=== PATIENT | female | born 1970 | race Caucasian/White ===

== ENCOUNTER → 2017-11-07 12:11 | Outpatient (CLI) | payer OTHER, SELFPAY ==
[2017-11-07 15:45] LABS: Absolute Lymphocyte Count 1.87 X10^3/ul (0.83-4.51); Absolute Neutrophil Count 4.7 X10^3/uL (2.0-7.7); Basophil# 0.05 X10^3/uL; Basophil% 0.7 % (0-1); Eosinophils% 1.4 % (0-5); Hematocrit 39.4 % (37-47); Lymphocyte # 1.87 X10^3/ul (4.0); Lymphocyte % 25.9 % (19-41); Mean Corp Hgb Conc 35.5 g/gl (32-36); Mean Corpuscular Volume 84.5 fL (81-99); Mean Platelet Vol. 10.4 fl (6.2-12.0); Monocyte# 0.51 X10^3/uL; Monocyte% 7.1 % (0-10); Neutrophil # 4.66 X10^3/uL (2.7-7.7); Neutrophil % 64.5 % (47-70); Platelet Count 321 K/mm3 (150-450); RBC Distribution Width CV 12.9 % (11.6-14.6); RBC Distribution Width SD 39.2 fl (35.1-43.9); Red Blood Count 4.66 M/mm3 (4.2-5.4); White Blood Count 7.2 K/mm3 (4.4-11.0)
[2017-11-07 15:46] LABS: POSITIVE COUNT NO; POSITIVE DIFFERENTIAL NO; POSITIVE MORPHOLOGY NO
[2017-11-07 16:00] LABS: Erythrocyte Sedimentation Rate 15 mm/hr (0-20)
[2017-11-07 16:06] LABS: Albumin, Serum 3.9 g/dL (3.2-5.0); BUN 16 mg/dL (7-18); BUN/Creat Ratio 20.8 RATIO (10-20); Creatinine, Serum 0.77 mg/dL (0.55-1.02); EST Glomerular Filtration Rate 85 mL/min (>60); Est Glom Filt Rate - Afr Amer 102 mL/min (>60); Globulin 4.2 g/dL (2.2-4.2); Glucose 85 mg/dL (74-106); Protein, Total 8.1 g/dL (6.4-8.2)
[2017-11-07 16:07] LABS: ALB/GLOB Ratio 0.9 RATIO (0.9-2.4); AST(SGOT) 56 U/L (15-37); Alanine Aminotransfer ALT/SGPT 64 U/L (13-56); Alkaline Phosphatase 74 U/L (45-117); Anion Gap 13 (5-15); CRP 8.42 mg/L (0.0-3.0); Calcium,Total 9.2 mg/dL (8.5-10.1); Chloride 103 mmol/L (98-107); Potassium 4.1 mmol/L (3.5-5.1); Sodium Level 138 mmol/L (136-145); Thyroid Stim Hormone (TSH) 1.36 uIU/mL (0.358-3.74)
[2017-11-09 18:18] LABS: ANTINUCLEAR ANTIBODIES DIRECT Negative (Negative)
[2017-11-09 20:08] LABS: Endomysial Antibody IgA Negative (Negative)
[2017-11-10 08:57] LABS: Immunoglobulin A 348 mg/dL (87-352); t-Transglutaminase IgA <2 U/mL (0-3)
== END ==
PROVIDERS: Family Provider Family Medicine; PCP Family Medicine; Visit Provider Family Medicine
DX: K63.9 Disease of intestine, unspecified (principal); R19.7 Diarrhea, unspecified
CPT/HCPCS: 36415; 80053; 82784; 83516; 84443; 85025; 85652; 86038; 86140; 86255

== ENCOUNTER → 2017-11-12 14:00 | Outpatient (CLI) | payer OTHER, SELFPAY | PROVIDERS: Family Provider Family Medicine; PCP Family Medicine; Visit Provider Family Medicine | DX: K63.9 Disease of intestine, unspecified (principal); R19.7 Diarrhea, unspecified | CPT/HCPCS: 87177; 87209 ==

== ENCOUNTER → 2017-11-23 16:29 | Outpatient (CLI) | payer OTHER, SELFPAY | PROVIDERS: Family Provider Family Medicine; PCP Family Medicine; Visit Provider Family Medicine | DX: K63.9 Disease of intestine, unspecified (principal); K76.0 Fatty (change of) liver, not elsewhere classified; K80.20 Calculus of gallbladder without cholecystitis without obstruction | CPT/HCPCS: 74177; Q9967 ==

== ENCOUNTER 2018-01-28 08:30 | Day surgery (SDC) | payer OTHER, SELFPAY ==
[2018-01-28 08:49] VITALS: BP 125/88; PULSE 85; RESP 14; TEMP 36.8; O2SAT 100; BMI 34.2
[2018-01-28 09:36] LABS: Bedside Glucose 107 mg/dL (70-110)
[2018-01-28 09:40] VITALS: BP 110/76; BP 125/88; PULSE 75; RESP 16; TEMP 35.8; O2SAT 100
--- NOTE | 2018-01-28 09:43 | OP.ENDO_ITS ---
Patient Name: Tete Stubbs Procedure Date: 01/28/2018 9:16 AM Date of : 1970 Age: 47 Procedure: Colonoscopy Indications: Abnormal abdominal x-ray of the GI tract, Change in bowel habits Providers: Wade Brown MD Medicines: See the Anesthesia note for documentation of the administered medications Patient Profile: Last Colonoscopy: none. The patient's first colonoscopy is today. Complications: No immediate complications. Procedure: Pre-Anesthesia Assessment: - Prior to the procedure, a History and Physical was performed, and patient medications and allergies were reviewed. The patient's tolerance of previous anesthesia was also reviewed. The risks and benefits of the procedure and the sedation options and risks were discussed with the patient. All questions were answered, and informed consent was obtained. Prior Anticoagulants: The patient has taken no previous anticoagulant or antiplatelet agents. ASA Grade Assessment: II - A patient with mild systemic disease. After reviewing the risks and benefits, the patient was deemed in satisfactory condition to undergo the procedure. After I obtained informed consent, the scope was passed under direct vision. Throughout the procedure, the patient's blood pressure, pulse, and oxygen saturations were monitored continuously. The colonoscope was introduced through the anus and advanced to the cecum, identified by appendiceal orifice and ileocecal valve. The colonoscopy was performed without difficulty. The patient tolerated the procedure well. The quality of the bowel preparation was good. Scope In: 9:24:08 AM Scope Withdrawal Time 0 hours 7 minutes 26 seconds Scope Out: 9:36:59 AM Total Procedure Duration Time 0 hours 12 minutes 51 seconds Findings: The perianal and digital rectal examinations were normal. The colon (entire examined portion) appeared normal. The exam was otherwise without abnormality on direct and retroflexion views. There was no bowel wasll thickening sign in the rectum or sigmoid coon. Impression: - No specimens collected. Recommendation: - Discharge patient to home. - Resume previous diet. - Continue present medications. - Repeat colonoscopy in 10 days for screening purposes. - Return to referring physician in 1 week. Procedure Code(s): --- Professional --- 94975, Colonoscopy, flexible; diagnostic, including collection of specimen(s) by brushing or washing, when performed (separate procedure) Diagnosis Code(s): --- Professional --- R19.4, Change in bowel habit R93.3, Abnormal findings on diagnostic imaging of other parts of digestive tract CPT copyright 2017 [employer]. All rights reserved. The codes documented in this report are preliminary and upon infrastructure software engineer review may be revised to meet current compliance requirements. MD Wade Guerrero MD 01/28/2018 9:43:00 AM This report has been signed electronically. Number of Addenda: 0 Note Initiated On: 01/28/2018 9:16 AM
[2018-01-28 09:45] VITALS: BP 110/78; BP 125/88; PULSE 72; RESP 16; O2SAT 100
[2018-01-28 09:50] VITALS: BP 108/75; BP 125/88; PULSE 65; RESP 16; O2SAT 100
[2018-01-28 09:55] VITALS: BP 110/73; BP 125/88; PULSE 62; RESP 16; TEMP 35.9; O2SAT 100
[2018-01-28 10:20] VITALS: BP 125/88
== END 2018-01-28 10:22 | disposition home or self-care (01) ==
LOC: EN 08:31 → AC 08:31
PROVIDERS: Family Provider Family Medicine; PCP Family Medicine; Referring Provider Surgery; Visit Provider Surgery
PROC: 0DJD8ZZ Inspection of Lower Intestinal Tract, Via Natural or Artificial Opening Endoscopic (ICD-10-PCS; CPT 45378; principal; 2018-01-28 09:25)
DX: K63.9 Disease of intestine, unspecified (principal); R19.4 Change in bowel habit; K21.9 Gastro-esophageal reflux disease without esophagitis; E11.9 Type 2 diabetes mellitus without complications; Z79.84 Long term (current) use of oral hypoglycemic drugs
CPT/HCPCS: 45378; 82962; J7120; J1610

== ENCOUNTER → 2020-10-13 | Outpatient (CLI) | payer OTHER, SELFPAY ==
[2020-10-13 14:50] VITALS: BMI 34.2
[2020-10-18 13:06] LABS: HPV APTIMA, High Risk Negative (Negative)
== END | disposition home or self-care (01) ==
PROVIDERS: PCP Family Medicine; Referring Provider Obstetrics & Gynecology; Visit Provider Obstetrics & Gynecology
DX: Z12.4 Encounter for screening for malignant neoplasm of cervix (principal)
CPT/HCPCS: 87624; 88175; G0145

== ENCOUNTER → 2020-10-28 17:20 | Outpatient (CLI) | payer OTHER, SELFPAY ==
[2020-10-13 14:50] VITALS: BMI 34.2
--- NOTE | 2020-10-28 16:33 | BI_ITS ---
MAMMOGRAPHY - BILATERAL SCREENING REASON FOR EXAM: Female, 49 years old. Routine annual screening examination. PERTINENT HISTORY: Grandmother with breast cancer. Aunts with breast cancer. TECHNIQUE: Digital bilateral breast linda (3D mammographic acquisition) in the CC and MLO projections. 2-D mediolateral oblique (MLO) and craniocaudad (CC) views of both breasts were obtained. CAD: Full Field Digital Mammography with Computer Added Detection was performed. COMPARISON: Comparison is made with prior study dated 08/11/2015. FINDINGS: Breast Composition: There are scattered areas of fibroglandular density. There are no dominant masses or suspicious calcifications. No other significant abnormalities are identified. There has been no significant change since the prior study. BI/SCRN MAMM (CAD)W/LINDA BILAT IMPRESSION: Stable bilateral screening mammogram. Yearly follow-up mammogram recommended. (A) ASSESSMENT CATEGORY: BIRADS Category 1: Negative. A letter regarding these results will be sent to the patient by the facility within 30 days. Approximately 10% of breast cancers are not detected by mammography. A normal mammogram should not delay biopsy of a clinically suspicious abnormality. [id number] Electronically Signed: Houston Mendoza MD at 9:12 EDT , Service support ,
== END ==
PROVIDERS: PCP Family Medicine; Referring Provider Obstetrics & Gynecology; Visit Provider Obstetrics & Gynecology
DX: Z12.31 Encounter for screening mammogram for malignant neoplasm of breast (principal)
CPT/HCPCS: 77063; 77067

== ENCOUNTER → 2020-11-23 | Outpatient (CLI) | payer OTHER, SELFPAY | END | disposition home or self-care (01) | LOC: LABSPEC 16:40 | PROVIDERS: PCP Family Medicine; Referring Provider Nurse Practitioner Women's Health; Visit Provider Nurse Practitioner Women's Health | DX: R30.0 Dysuria (principal) | CPT/HCPCS: 87086; 87088 ==

== ENCOUNTER → 2020-12-17 | Outpatient (CLI) | payer OTHER, SELFPAY | END | disposition home or self-care (01) | LOC: LABSPEC 11:30 | PROVIDERS: PCP Family Medicine; Visit Provider Obstetrics & Gynecology | DX: R30.0 Dysuria (principal) | CPT/HCPCS: 87086; 87088 ==

== ENCOUNTER 2021-04-22 08:33 | Outpatient (CLI) | payer OTHER, SELFPAY ==
[2021-04-22 10:24] LABS: ALB/GLOB Ratio 0.9 RATIO (0.9-2.4); AST(SGOT) 25 U/L (15-37); Alanine Aminotransfer ALT/SGPT 40 U/L (13-56); Albumin, Serum 3.8 g/dL (3.2-5.0); Alkaline Phosphatase 110 U/L (45-117); Anion Gap 6 (5-15); BUN 15 mg/dL (7-18); BUN/Creat Ratio 19.3 RATIO (10-20); Calcium,Total 8.9 mg/dL (8.5-10.1); Chloride 101 mmol/L (98-107); Creatinine, Serum 0.78 mg/dL (0.55-1.02); EST Glomerular Filtration Rate 83 mL/min (>60); Est Glom Filt Rate - Afr Amer 100 mL/min (>60); Globulin 4.4 g/dL (2.2-4.2); Glucose 286 mg/dL (74-106); Protein, Total 8.2 g/dL (6.4-8.2); Sodium Level 134 mmol/L (136-145)
[2021-04-22 10:30] LABS: Hemoglobin A1c 8.4 % (3.8-5.6)
[2021-04-22 10:32] LABS: Microalbumin,Random Urine 62.8 mg/L (NO RANGE EST.); Microalbumin:Creatinine Ratio 40.5 mg/g CRE (<30 mg/g CRE)
== END 2021-04-22 23:59 | disposition short-term general hospital (02) ==
LOC: MFPLAB 08:34
PROVIDERS: PCP Family Medicine; Referring Provider Family Medicine; Visit Provider Family Medicine
DX: E11.65 Type 2 diabetes mellitus with hyperglycemia (principal); E66.9 Obesity, unspecified; K76.0 Fatty (change of) liver, not elsewhere classified
CPT/HCPCS: 36415; 80053; 82043; 82570; 83036

== ENCOUNTER → 2022-05-26 | Outpatient (CLI) | payer OTHER, SELFPAY ==
[2022-05-26 12:25] LABS: Absolute Lymphocyte Count 2.09 X10^3/uL (0.83-4.51); Absolute Neutrophil Count 4.9 X10^3/uL (2.0-7.7); Basophil# 0.06 X10^3/uL; Basophil% 0.8 % (0-1); Eosinophil# 0.19 X10^3/uL; Eosinophils% 2.4 % (0-5); Hematocrit 40.9 % (37-47); Hemoglobin 13.9 g/dL (12.0-15.0); Lymphocyte # 2.09 X10^3/ul (0.83-4.51); Lymphocyte % 26.7 % (19-41); Mean Corpuscular Hgb 29.1 pg (27.0-32.0); Mean Corpuscular Volume 85.7 fL (81-99); Mean Platelet Vol. 10.3 fl (6.2-12.0); Monocyte% 6.4 % (0-10); NRBC Flagged by Analyzer 0 % (0-5); Neutrophil # 4.94 X10^3/uL (2.7-7.7); Neutrophil % 63.2 % (47-70); Platelet Count 348 K/mm3 (150-450); RBC Distribution Width CV 13.2 % (11.6-14.6); RBC Distribution Width SD 41.1 fl (35.1-43.9); Red Blood Count 4.77 M/mm3 (4.2-5.4); White Blood Count 7.8 K/mm3 (4.4-11.0)
[2022-05-26 13:11] LABS: Microalbumin:Creatinine Ratio 29.9 mg/g CRE (<30 mg/g CRE)
[2022-05-26 13:13] LABS: ALB/GLOB Ratio 0.9 RATIO (0.9-2.4); AST(SGOT) 18 U/L (15-37); Alanine Aminotransfer ALT/SGPT 35 U/L (13-56); Albumin, Serum 3.8 g/dL (3.2-5.0); Alkaline Phosphatase 96 U/L (45-117); Anion Gap 6 (5-15); BUN 13 mg/dL (7-18); BUN/Creat Ratio 17.9 RATIO (10-20); Chloride 102 mmol/L (98-107); Cholesterol 164 mg/dL (200); Creatinine, Serum 0.73 mg/dL (0.55-1.02); EST Glomerular Filtration Rate 89 mL/min (>60); Est Glom Filt Rate - Afr Amer 107 mL/min (>60); Globulin 4.3 g/dL (2.2-4.2); Glucose 278 mg/dL (74-106); High Density Lipoprotein 55 mg/dL; Potassium 4.4 mmol/L (3.5-5.1); Protein, Total 8.1 g/dL (6.4-8.2); Sodium Level 134 mmol/L (136-145); Triglycerides 88 mg/dL; Very Low Density Lipoprotein 18 mg/dL (5-40)
== END | disposition home or self-care (01) ==
LOC: BIMLAB 08:24
PROVIDERS: PCP Internal Medicine; Referring Provider Internal Medicine; Visit Provider Internal Medicine
DX: I10 Essential (primary) hypertension (principal)
CPT/HCPCS: 36415; 80053; 80061; 82043; 82570; 85025

== ENCOUNTER → 2022-06-02 | Outpatient (CLI) | payer OTHER, SELFPAY ==
--- NOTE | 2022-06-02 14:47 | BI_ITS ---
MAMMOGRAPHY - BILATERAL SCREENING REASON FOR EXAM: Female, 51 years old. Routine annual screening examination. PERTINENT HISTORY: Grandmothers with breast cancer. TECHNIQUE: Digital bilateral breast linda (3D mammographic acquisition) in the CC and MLO projections. 2-D mediolateral oblique (MLO) and craniocaudad (CC) views of both breasts were obtained. CAD: Full Field Digital Mammography with Computer Added Detection was performed. COMPARISON: Comparison is made with prior mammogram dated October 28, 2020 and August 11, 2015. FINDINGS: Breast Composition: The breasts are almost entirely fatty. There are no dominant masses or suspicious calcifications. No other significant abnormalities are identified. There has been no significant change since the prior study. BI/SCRN MAMM (CAD)W/LINDA BILAT IMPRESSION: Stable bilateral screening mammogram. Yearly follow-up mammogram recommended. (A) ASSESSMENT CATEGORY: BIRADS Category 1: Negative. A letter regarding these results will be sent to the patient by the facility within 30 days. Approximately 10% of breast cancers are not detected by mammography. A normal mammogram should not delay biopsy of a clinically suspicious abnormality. [id number] Electronically Signed: Houston Mendoza MD at 8:49 EDT ,
== END | disposition home or self-care (01) ==
LOC: OPBI 14:46
PROVIDERS: PCP Internal Medicine; Referring Provider Internal Medicine; Visit Provider Internal Medicine
DX: Z12.31 Encounter for screening mammogram for malignant neoplasm of breast (principal)
CPT/HCPCS: 77063; 77067

== ENCOUNTER → 2023-01-10 | Outpatient (CLI) | payer OTHER, SELFPAY ==
[2023-01-16 14:09] LABS: HPV APTIMA, High Risk Negative (Negative)
== END | disposition home or self-care (01) ==
LOC: LABSPEC 15:55
PROVIDERS: PCP Internal Medicine; Referring Provider Registered Nurse; Visit Provider Registered Nurse
DX: Z12.4 Encounter for screening for malignant neoplasm of cervix (principal)
CPT/HCPCS: 87624; 88175; G0145

== ENCOUNTER → 2023-01-12 | Outpatient (CLI) | payer OTHER, SELFPAY ==
--- NOTE | 2023-01-12 10:38 | US_ITS ---
STUDY: ULTRASOUND TRANSVAGINAL CLINICAL: Female, 52 years old. abnormal bleeding TECHNIQUE: Transvaginal COMPARISON: None. FINDINGS: Normal uterine size measuring 8.2 x 4.0 x 2.7 cm in maximal craniocaudal dimension. There are no myometrial masses. Normal endometrial thickness measuring 3 mm. There are no endometrial masses, and there is no fluid in the endometrial cavity. Nabothian cyst in the cervix. The right ovary is not visualized.. Normal left ovary, measuring 1.7 x 1.2 x 1.0 cm. There are multiple follicles without a dominant cyst. There is no free fluid in the pelvis. Polycystic ovary disease: No. US/Transvaginal Non- IMPRESSION: Normal transvaginal pelvic ultrasound Electronically Signed: Valeriano Hernandez MD at 21:44 EDT ,
== END | disposition home or self-care (01) ==
LOC: OPUS 10:37
PROVIDERS: PCP Internal Medicine; Referring Provider Registered Nurse; Visit Provider Registered Nurse
DX: N93.9 Abnormal uterine and vaginal bleeding, unspecified (principal)
CPT/HCPCS: 76830

== ENCOUNTER → 2024-01-29 | Outpatient (CLI) | payer OTHER, SELFPAY ==
[2024-01-29 12:20] LABS: Absolute Lymphocyte Count 1.51 X10^3/uL (0.83-4.51); Absolute Neutrophil Count 2.4 X10^3/uL (2.0-7.7); Basophil# 0.06 X10^3/uL; Basophil% 1.3 % (0-1); Eosinophil# 0.22 X10^3/uL; Eosinophils% 4.8 % (0-5); Hematocrit 38.2 % (37-47); Lymphocyte # 1.51 X10^3/ul (0.83-4.51); Lymphocyte % 33.2 % (19-41); Mean Corpuscular Hgb 28.4 pg (27.0-32.0); Mean Corpuscular Volume 83.6 fL (81-99); Monocyte# 0.36 X10^3/uL; Monocyte% 7.9 % (0-10); NRBC Flagged by Analyzer 0 % (0-5); Neutrophil # 2.38 X10^3/uL (2.7-7.7); Neutrophil % 52.4 % (47-70); Platelet Count 307 K/mm3 (150-450); RBC Distribution Width CV 13.2 % (11.6-14.6); Red Blood Count 4.57 M/mm3 (4.2-5.4); White Blood Count 4.6 K/mm3 (4.4-11.0)
[2024-01-29 12:58] LABS: ALB/GLOB Ratio 0.9 RATIO (0.9-2.4); AST(SGOT) 11 U/L (15-37); Alanine Aminotransfer ALT/SGPT 14 U/L (13-56); Albumin, Serum 3.6 g/dL (3.2-5.0); Alkaline Phosphatase 84 U/L (45-117); Anion Gap 6 (5-15); BUN 15 mg/dL (7-18); BUN/Creat Ratio 19.8 RATIO (10-20); Chloride 106 mmol/L (98-107); Cholesterol 194 mg/dL (200); Creatinine, Serum 0.76 mg/dL (0.55-1.02); EST Glomerular Filtration Rate 84 mL/min (>60); Est Glom Filt Rate - Afr Amer 102 mL/min (>60); Glucose 148 mg/dL (74-106); High Density Lipoprotein 63 mg/dL; Potassium 4.3 mmol/L (3.5-5.1); Protein, Total 7.6 g/dL (6.4-8.2); Sodium Level 138 mmol/L (136-145); Triglycerides 62 mg/dL; Very Low Density Lipoprotein 12 mg/dL (5-40)
[2024-01-29 13:15] LABS: Microalbumin,Random Urine 5.5 mg/L (NO RANGE EST.); Microalbumin:Creatinine Ratio 5.8 mg/g CRE (<30 mg/g CRE)
== END | disposition home or self-care (01) ==
LOC: BIMLAB 07:56
PROVIDERS: PCP Internal Medicine; Visit Provider Internal Medicine
DX: E11.9 Type 2 diabetes mellitus without complications (principal)
CPT/HCPCS: 36415; 80053; 80061; 82043; 82570; 85025

== ENCOUNTER → 2024-02-21 | Outpatient (CLI) | payer OTHER, SELFPAY ==
[2024-03-03 09:22] LABS: HPV APTIMA, High Risk Negative (Negative)
== END | disposition home or self-care (01) ==
LOC: LABSPEC 16:17
PROVIDERS: PCP Internal Medicine; Referring Provider Nurse Practitioner Family; Visit Provider Nurse Practitioner Family
DX: Z12.4 Encounter for screening for malignant neoplasm of cervix (principal)
CPT/HCPCS: 87624; 88175; G0145

== ENCOUNTER → 2024-02-22 | Outpatient (CLI) | payer OTHER, SELFPAY ==
[2024-02-22 11:38] LABS: Estradiol 91.6 pg/mL; Follicle Stimulating Hormone 6.4 mIU/mL
== END | disposition home or self-care (01) ==
LOC: LAB 09:44
PROVIDERS: PCP Internal Medicine; Referring Provider Nurse Practitioner Family; Visit Provider Nurse Practitioner Family
DX: N93.9 Abnormal uterine and vaginal bleeding, unspecified (principal); Z13.29 Encounter for screening for other suspected endocrine disorder
CPT/HCPCS: 36415; 82670; 83001; 84439; 84443

== ENCOUNTER → 2024-09-23 | Outpatient (CLI) | payer OTHER, SELFPAY ==
--- NOTE | 2024-09-23 | EMB_PTH ---
PATIENT: CAROL STEWARD LOC: [facility] U#:[id number] AGE/SX: 53/F ROOM: RE09/23/[address]: NILO Esteban : 1970 BED: DIS: 09/23/2024 SPEC #: [id number] RECD: 09/23/24 12:14 STATUS: CHERYL WILSON #: [id number] SEA: 09/23/24 00:[address]: Gabriela Davis NP DEPT: SURGICAL PATHOLOGY RECD BY: Leslie Pena ENTERED: 09/23/24 12:23 SP TYPE: ENDOM BX/C MIS DR: Dr. Sadaf Neal MD Tissues: A - Endometrium, NOS Procedures: Surgery Specimen Level IV HEADER OPERATION: EMB PRE-OP DIAGNOSIS: AUB TISSUE SUBMITTED: A- Endometrial lining MICROSCOPIC DIAGNOSIS A. Endometrium, AUB, biopsy: - Fragments of mildly disordered proliferative endometrium. MICROSCOPIC DESCRIPTION Slides are reviewed. GROSS DESCRIPTION A. Received in formalin labeled with the patient's name and date of is a 2.5 x 0.8 x 0.1 cm aggregate of mucoid material and flecks of kumar-pink tissue. Entirely submitted in 1 cassette. MD 09/23/2024 CPT:73944
== END | disposition home or self-care (01) ==
LOC: LABSPEC 11:57
PROVIDERS: PCP Internal Medicine; Visit Provider Nurse Practitioner Women's Health
DX: N93.9 Abnormal uterine and vaginal bleeding, unspecified (principal)
CPT/HCPCS: 88305

== ENCOUNTER → 2024-09-26 | Outpatient (CLI) | payer OTHER, SELFPAY ==
--- NOTE | 2024-09-26 15:14 | US_ITS ---
PROCEDURE: TRANSVAGINAL NON- 09/26/2024 REASON FOR EXAM: AUB TECHNIQUE: TRANSVAGINAL NON- with grayscale and color Doppler COMPARISON: Pelvic ultrasound 01/12/2023 FINDINGS: Measurements: Uterus: 7.3 x 2.5 x 4.0 cm for volume of 37.3 mL Endometrial Thickness: 3 mm Right Ovary: 2.1 x 1.1 x 1.9 cm for volume of 2.5 mL . Left Ovary: 1.7 x 1.3 x 1.3 cm for volume of 1.5 mL. Uterus: Anteverted. Normal contour and myometrial echotexture. Nabothian cysts at the cervix. Endometrium: Normal echotexture. Right ovary: Normal size and echotexture. Left ovary: Normal size and echotexture. Other adnexal findings: None. Cul-de-sac: No free intraperitoneal fluid identified. Color Doppler: Normal color flow doppler signal at both ovaries. US/Transvaginal Non- IMPRESSION: Unremarkable pelvic ultrasound. The endometrial stripe measures 3 mm in thickn ess, similar to ultrasound in 2022. Reading Location: [id number]
== END | disposition home or self-care (01) ==
LOC: US 15:12
PROVIDERS: PCP Internal Medicine; Referring Provider Nurse Practitioner Women's Health; Visit Provider Nurse Practitioner Women's Health
DX: N93.9 Abnormal uterine and vaginal bleeding, unspecified (principal)
CPT/HCPCS: 76830

== ENCOUNTER → 2024-11-07 | Outpatient (CLI) | payer OTHER, SELFPAY ==
--- NOTE | 2024-11-07 07:04 | BI_ITS ---
EXAM: SCRN MAMM (CAD)W/LINDA BILAT DATE: 11/07/2024 CLINICAL HISTORY: F, Age 53 y/o , SCREENING FOR BREAST CANCER TECHNIQUE: SCRN MAMM (CAD)W/LINDA BILAT COMPARISON: Prior exam(s) dated 06/02/2022, 10/28/2020. FINDINGS: TISSUE DENSITY: The breasts are almost entirely fatty. Bilateral Breast Mammographic Findings: No significant masses, calcifications or other abnormalities are identified. BI/SCRN MAMM (CAD)W/LINDA BILAT IMPRESSION: There is no mammographic evidence of malignancy. OVERALL FINAL ASSESSMENT BI-RADS 1: NEGATIVE. RECOMMENDATION: Routine annual follow-up in 1 Year A letter with findings and recommendations will be mailed to the patient. Reading Location: [id number]
--- OUTSIDE RECORDS SUMMARY | 2024-11-07 07:20 | XMS RPT_ITS | CCD ---
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 Aroldo Hua Primary Care Provider Dr. Aroldo Hua Referring Provider Dr. Sadaf Neal Attending Provider Dr. Sadaf Neal Primary Care Provider Dr. Sadaf Neal Referring Provider [phone] MICHAEL Rucker Attending Provider Dr. Sadaf Neal MD Primary Care Provider Dr. Sadaf Neal MD Attending Provider Dr. Sadaf Neal MD Referring Provider Ryan SLOOP CAPTAIN-CGabriela Attending Provider Ryan SLOOP CAPTAIN-C Gabriela Referring Provider Jay Jay AMAYA, Dr. Gar Attending Provider Ángel, Sadaf Primary Care Unavailable Morse, Sadaf Attending Unavailable Morse, Sadaf Referring Unavailable [place] SLOOP CAPTAIN, Gabriela Attending Unavailable Morse, Sadaf Primary Care Unavailable [place] SLOOP CAPTAIN, Gabriela Attending Unavailable [place] SLOOP CAPTAIN, Gabriela Referring Unavailable Ángel, Sadaf Primary Care Unavailable Ángel, Sadaf Primary Care Unavailable Ángel, Sadaf Attending Unavailable Morse, Sadaf Primary Care Unavailable Jessica, Jennifer Attending Unavailable Barkman, Jennifer Referring Unavailable Morse, Sadaf Primary Care Unavailable Jennifer Lopez Attending Unavailable Barkman, Jennifer Referring Unavailable Ángel, Sadaf Primary Care Unavailable Jennifer Lopez Attending Unavailable Barkman, Jennifer Referring Unavailable Ángel, Sadaf Primary Care Unavailable Cong Goyal Attending Unavailable Morse, Sadaf Referring Unavailable Ángel, Sadaf Referring Unavailable Ángel, Sadaf Primary Care Unavailable Jennifer Lopez Attending Unavailable Morse, Sadaf Referring Unavailable Ángel, Sadaf Primary Care Unavailable Morse, Sadaf Attending Unavailable Ryan SLOOP CAPTAINGabriela Attending Unavailable Ángel, Sadaf Primary Care Unavailable Ángel, Sadaf Referring Unavailable [place] SLOOP CAPTAIN, Gabriela Attending Unavailable Morse, Sadaf Primary Care Unavailable Morse, Sadaf Referring Unavailable Medications Current Medications Medication Drug Class(es) Dates Sig (Normalized) Sig (Original) Tirzepatide (8 sources) Start: 01-01-2023 Tirzepatide Ac tive 7.5 MG SC EVERY WEEK 6 January 01, 2023 7:06pm Start: 08-22-2022 End: 01-01-2023 Tirzepatide Discontinued 5 M G SC EVERY WEEK 6 August 22, 2022 4:36pm January 01, 2023 7:06pm Start: 08-02-2022 End: 08-22-2022 Tirzepatide Discontinued 7.5 MG SC EVERY WEEK 2 August 02, 2022 2:35pm August 22, 2022 4:37pm Start: 08-01-2022 End: 08-02-2022 Tirzepatide Discontinued 7.5 MG SC EVERY WEEK 2 August 01, 2022 11:28am August 02, 2022 2:35pm Tirzepatide 5 mg/0.5 mL pen injector (20 sources) Start: 09-23-2024 Tirzepatide 5 mg/0.5 mL pen injector Active 5 mg SC EVERY WEEK 2 September 23, 2024 8:15am for 4 weeks Start: 07-29-2024 End: 09-23-2024 Tirzepatide 5 mg/0.5 mL pen injector Discontinued 5 mg SC EVERY WEEK 2 July 29, 2024 8:37am September 23, 2024 8:17am for 4 weeks Start: 07-01-2024 End: 07-29-2024 Tirzepatide 5 mg/0.5 mL pen injector Discontinued 5 mg SC EVERY WEEK 2 0 July 01, 2024 9:53am July 29, 2024 8:37am for 4 weeks Start: 05-20-2024 End: 07-01-2024 Tirzepatide 5 mg/0.5 mL pen injector Discontinued 5 mg SC EVERY WEEK 2 May 20, 2024 5:26pm July 01, 2024 9:53am for 4 weeks Start: 08-22-2022 End: 01-01-2023 Tirzepatide 5 mg/0.5 mL pen injector Discontinued 5 mg SC EVERY WEEK 6 84 August 22, 2022 4:36pm January 01, 2023 7:06pm Uncontrolled type 2 diabetes mellitus Type 2 diabetes mellitus with hyperglycemia Completed/Discontinued Medications Medication Drug Class(es) Dates Sig (Normalized) Sig (Original) medroxyPROGESTERone acetate 10 mg oral tablet (2 sources) Progestin Start: 10-01-19 End: 10-11-19 take 1 tablet by mouth once daily Medroxyprogesterone 10 mg tablet Discontinued 10 mg PO daily 10 10 0 September 30, 2024 12:00am October 09, 2024 12:00am October 10, 2024 12:08am metFORMIN hydrochloride 500 mg oral tablet (20 sources) Biguanide Start: 09-15-19 End: 03-27-19 take 1 tablet by mouth twice daily Metformin 500 mg tablet Discontinued 500 mg PO TWICE A DAY 180 October 18, 2022 11:23am March 27, 2023 6:22pm metFORMIN hydrochloride 1000 mg / SITagliptin 50 mg oral tablet (9 sources) Biguanide, Dipeptidyl Peptidase 4 Inhibitor Start: 01-17-20 18 End: 10-14-19 21 Sitagliptin Phos-Metformin (Janumet) 50-1,000 mg tablet Discontinued 1 {tbl} PO TWICE A DAY January 16, 2018 12:00am October 13, 2020 2:48pm nitrofurantoin, macrocrystals 25 mg / nitrofurantoin, monohydrate 75 mg oral capsule (9 sources) Nitrofuran Antibacterial Start: 11-24-19 End: 12-01-19 take 1 capsule by mouth twice daily at mealtime Nitrofurantoin Monohyd/M-Cryst (Macrobid) 100 mg capsule Discontinued 100 mg PO TWICE A DAY 14 7 0 November 23, 2020 12:00am November 29, 2020 12:00am November 30, 2020 12:01am must administer with a meal/food norethindrone acetate 5 mg oral tablet (10 sources) Start: 01-19-20 End: 03-27-19 take 1 tablet by mouth once daily Norethindrone Acetate 5 mg tablet Discontinued 5 mg PO DAILY 30 3 January 18, 2023 12:05pm March 27, 2023 3:25pm omeprazole 40 mg delayed release oral capsule (9 sources) Proton Pump Inhibitor Start: 05-24-19 End: 03-27-19 24 take 1 capsule by mouth once daily Omeprazole 40 mg capsule,delayed release(DR/EC) Discontinued 40 mg PO DAILY May 23, 2022 1:00am March 27, 2023 3:25pm progesterone 100 mg oral capsule (9 sources) Progesterone Start: 01-17-20 End: 10-14-19 take 1 capsule by mouth at bedtime Progesterone Micronized 100 mg capsule Discontinued 70 mg PO AT BEDTIME January 16, 2018 12:00am October 13, 2020 2:48pm Start: 01-16-2018 End: 10-13-2020 take 70 mg by mouth at bedtime Progesterone Micronized Discontinued 70 MG PO AT BEDTIME January 16, 2018 12:00am October 13, 2020 2:48pm Tirzepatide (Mounjaro) 2.5 mg/0.5 mL pen injector (19 sources) Start: 04-07-2024 End: 05-20-2024 Tirzepatide (Mounjaro) 2.5 mg/0.5 mL pen injector Discontinued 2.5 mg SC EVERY WEEK 6 April 07, 2024 8:15am May 20, 2024 5:27pm for 4 weeks Start: 01-29-2024 End: 02-21-2024 Tirzepatide (Mounjaro) 2.5 m g/0.5 mL pen injector Discontinued 2.5 mg SC EVERY WEEK 6 January 29, 2024 1:00am February 21, 2024 4:06pm for 4 weeks Start: 05-23-2022 End: 06-12-2022 Tirzepatide (Mounjaro) 2.5 m g/0.5 mL pen injector Discontinued 2.5 mg SC EVERY WEEK 2 28 0 May 23, 2022 1:00am June 19, 2022 12:00am June 12, 2022 10:52am Start: 05-23-2022 End: 06-12-2022 Tirzepatide (Mounjaro) 2.5 m g/0.5 mL pen injector Discontinued 2.5 MG SC EVERY WEEK 2 May 23, 2022 1:00am June 12, 2022 10:52am Start: 05-23-2022 Tirzepatide (M ounjaro) 2.5 mg/0.5 mL pen injector Active 2.5 MG SC EVERY WEEK 2 May 23, 2022 1:00am Tirzepatide (Mounjaro) 5 mg/ 0.5 mL pen injector (7 sources) Start: 06-12-2022 End: 08-01-2022 Tirzepatide (Mounjaro) 5 mg/ 0.5 mL pen injector Discontinued 5 mg SC EVERY WEEK 2 28 3 June 12, 2022 10:52am August 01, 2022 11:29am Uncontrolled type 2 diabetes mellitus Type 2 diabetes mellitus with hyperglycemia Start: 06-12-2022 End: 08-01-2022 Tirzepatide (Mounjaro) 5 mg/ 0.5 mL pen injector Discontinued 5 MG SC EVERY WEEK 2 June 12, 2022 10:52am August 01, 2022 11:29am Tirzepatide 7.5 mg/0.5 mL pe n injector (15 sources) Start: 01-01-2023 End: 01-29-2024 Tirzepatide 7.5 mg/0.5 mL pe n injector Discontinued 7.5 mg SC EVERY WEEK 6 84 1 January 01, 2023 7:06pm January 29, 2024 8:25am Uncontrolled type 2 diabetes mellitus Type 2 diabetes mellitus with hyperglycemia Start: 08-02-2022 End: 08-22-2022 Tirzepatide 7.5 mg/0.5 mL pe n injector Discontinued 7.5 mg SC EVERY WEEK 2 28 0 August 02, 2022 2:35pm August 29, 2022 12:00am August 22, 2022 4:37pm Uncontrolled type 2 diabetes mellitus Type 2 diabetes mellitus with hyperglycemia Start: 08-01-2022 End: 08-02-2022 Tirzepatide 7.5 mg/0.5 mL pe n injector Discontinued 7.5 mg SC EVERY WEEK 2 28 0 August 01, 2022 11:28am August 28, 2022 12:00am August 02, 2022 2:35pm Uncontrolled type 2 diabetes mellitus Type 2 diabetes mellitus with hyperglycemia Problems Problem Classification Problem Date Documented Da te Episodic/Chronic Administrative/social admission (2 sources) Persons encountering health services in other specified circumstances; Translations: [Other reasons for seeking consultation] 05-23-2022 Episodic Diabetes mellitus with complications (11 sources) Type II diabetes mellitus uncontrolled; Translations: [Uncontrolled type 2 diabetes mellitus] 05-23-2022 Chronic Diabetes mellitus without complication (13 sources) Type 2 diabetes mellitus; Translations: [Type 2 diabetes mellitus without complications] Onset: 09-23-2024 08-22-2022 Chronic Esophageal disorders (2 sources) Gastro-esophageal reflux disease without esophagitis; Translations: [Esophageal reflux] 05-23-2022 Chronic Essential hypertension (11 sources) Essential hypertension; Translations: [Essential (primary) hypertension] 05-22-2022 Chronic Other connective tissue disease (2 sources) Pain in right foot; Translations: [Pain in limb] 05-23-2022 Episodic Other connective tissue disease (2 sources) Panniculitis; Translations: [Panniculitis, unspecified] 10-10-2024 Episodic Other connective tissue disease (1 source) Panniculitis, unspecified; Translations: [Panniculitis, unspecified] Onset: 10-10-2024 Episodic Other female genital disorders (10 sources) Abnormal uterine bleeding; Translations: [Abnormal uterine and vaginal bleeding, unspecified] 01-10-2023 Chronic Comment on above: US 2022 reviewed and normal results. US 2022 reviewed and normal results. recurrenace: EMB and US pending. Other female genital disorders (3 sources) Abnormal uterine and vaginal bleeding, unspecified; Translations: [Unspecified disorders of menstruation and other abnormal bleeding from female genital tract] Onset: 10-02-2024 01-10-2023 Chronic Other nutritional; endocrine; and metabolic disorders (1 source) Obese class I; Translations: [Obesity (BMI 30.0-34.9)] 09-23-2024 Chronic Other nutritional; endocrine; and metabolic disorders (4 sources) Body mass index 25-29 - overweight; Translations: [Overweight] 09-23-2024 Episodic Other nutritional; endocrine; and metabolic disorders (2 sources) Intentional weight loss 10-10-2024 Episodic Other nutritional; endocrine; and metabolic disorders (1 source) Overweight; Translations: [Overweight] Onset: 09-23-2024 Episodic Other screening for suspected conditions (not mental disorders or infectious disease) (10 sources) Encounter for other screening for malignant neoplasm of breast; Translations: [Breast screening, unspecified] Onset: 08-19-2024 05-23-2022 Episodic Residual codes; unclassified (2 sources) Immunization not carried out because of patient refusal; Translations: [Vaccination not carried out because of patient refusal] 05-23-2022 Episodic Results Test Name Value Interpretation Reference Range Facility Plastic Surgery Visit Report on 10-10-2024 Plastic Surgery Visit Report [facility] Plastic Reconstructive Surgery [address], [address] [place] [address] OFFICE VISIT Date of Service: 10/10/24 MR#: [id number] Acct: [id number] Name: TETE STEWARD Rep #: [id number] : 1970 Provider: Dr. Cong Goyal MD Age/Sex: 53/F Location: [facility] Status: Signed Intake Vital Signs 02/21/24 08:50 09/23/24 10:56 Height 5 ft 4 in 5 ft 4 in Intake Visit Reasons: PANNICULECTOMY CONSULT Chief Complaint: Panniculectomy consult Is patient in pain?: No Allergies No Known Allergies Allergy (Verified 10/10/24 08:48) Medications ???Medication ???Instructions ???Recorded ???Confirmed ???Type tirzepatide 5 mg/0.5 mL 5 mg (0.5 mL) subcut QWEEK #2 mL 0 09/23/24 10/10/24 Rx subcutaneous pen injector [facility] Medical History Essential hypertension Bowel wall thickening Gallstones CKD (chronic kidney disease) stage 2, GFR 60-89 ml/min Type 2 diabetes mellitus Diarrhea Hemorrhoids Acid reflux Surgical History H/O tubal ligation History of dilation and curettage S/P tonsillectomy History of appendectomy Family History Father Diabetes Heart disease Hypertension High cholesterol Thyroid disorder Brother Diabetes Hypertension Grandmother Breast cancer Aunt Breast cancer x2 plus their 2 daughters Mother Hypertension Social History household members: spouse current occupational status: employed 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 She has a past medical history of borderline diabetes mellitus, currently well-controlled with a hemoglobin A1c of 4.9, and a history of obesity, from which she has significantly reduced her weight. The patient is concerned about the physical discomfort and aesthetic effects of the remaining abdominal skin, which protrudes approximately 3 cm below the pubic symphysis after weight loss. This condition hinders her physical activity and causes recurrent irritation below the skin fold. In addition, the patient has a stable subcostal transverse incision from prior cyst removal without complications. She has been advised that the excess skin may complicate any future surgical interventions. The patient expresses satisfaction with her current weight and wishes to explore options to address the abdominal skin issues, potentially through surgical intervention. Patient has a history of approximately 100 pounds weight loss (250 and now 150/160). She has been oscillating around 160 for approximately 3 months. She was approximately 200 pounds in March 2024 and went back on [facility] losing approximately 50 pounds in 3 months. Her BMI is currently 26 and she would like to stay around the same weight. No personal or family history of bleeding or clotting problems. Patient has had a right upper quadrant cyst removed by home extension agent. She reports rashes and pain with exercising along the intertriginous folds of her abdominal pannus/apron. Patient had 1 child via vaginal . She was another time. She is not a smoker and does not use nicotine products ROS: - Skin: Reports irritation and rash beneath abdominal panniculus - Endocrine: Denies ongoing weight fluctuations Attestation: Documentation on this patient encounter was supported using ambient scribe technology/ voice AI technology. The patient consented to recording for the purpose of documenting the encounter. Carmela lovelace reviewed content of the generated note prior to signature. ROS General General: Yes good health; No fatigue, fever(s) or weight loss HENMT HENMT: No rhinitis, sore throat/mouth sore, nasal congestion, contacts or glaucoma Endo Endocrine: No thyroid disease, polydipsia, heat intolerance, cold intolerance, hepatitis or excessive urine Skin Skin: No Bleeding, bruising, changing moles or suspicious lesion Musc Musculoskeletal: No joint pain, joint stiffness, muscle weakness, back pain, osteoarthritis or Muscle aches/ myalgia Neuro Neurological: No headache(s), No lightheadedness and No numbness Cardio Cardiovascular: No chest pain, pacemaker, fatigue or shortness of breat wit (more content not included)... Normal [facility] Transvaginal Non-on 09-26-2024 Transvaginal Non- [facility] Services [address] [place], [place] [address] Transvaginal Non- MR#: [id number] Acct: [id number] Name: TETE STEWARD Rep #: [id number] : 1970 F 53 From: Renan Adames MD PCP: Dr. Sadaf Neal MD Status: REG CLI Study: Transvaginal Non- Date of Exam: Exam# [id number] Ordering Dr: Gabriela Davis SLOOP CAPTAIN SLOOP CAPTAIN -C PROCEDURE: TRANSVAGINAL NON- 09/26/2024 REASON FOR EXAM: AUB TECHNIQUE: TRANSVAGINAL NON- with grayscale and color Doppler COMPARISON: Pelvic ultrasound 01/12/2023 FINDINGS: Measurements: Uterus: 7.3 x 2.5 x 4.0 cm for volume of 37.3 mL Endometrial Thickness: 3 mm Right Ovary: 2.1 x 1.1 x 1.9 cm for volume of 2.5 mL . Left Ovary: 1.7 x 1.3 x 1.3 cm for volume of 1.5 mL. Uterus: Anteverted. Normal contour and myometrial echotexture. Nabothian cysts at the cervix. Endometrium: Normal echotexture. Right ovary: Normal size and echotexture. Left ovary: Normal size and echotexture. Other adnexal findings: None. Cul-de-sac: No free intraperitoneal fluid identified. Color Doppler: Normal color flow doppler signal at both ovaries. US/Transvaginal Non- IMPRESSION: Unremarkable pelvic ultrasound. The endometrial stripe measures 3 mm in thickness, similar to ultrasound in 2022. Reading Location: [id number] CC: NILO Davis; Dr. Sadaf Neal MD Tooling Specialist: Signed Normal [facility] Laboratory - Hematology and Cell countsOrdered By: Sadaf Neal on 09-23-2024 HbA1c (Bld) [Mass fraction] 4.5 % 4.2-6.3 [facility] Customer Development Representative Office Visit Reporton 09-23-2024 Customer Development Representative Office Visit Report [facility] [address], [address] [place] [address] OFFICE VISIT Date of Service: 09/23/24 MR#: [id number] Acct: [id number] Name: TETE STEWARD Rep #: [id number] : 1970 Provider: NILO boswell Age/Sex: 53/F [place] [facility] Status: Signed Intake Vital Signs 02/21/24 08:50 09/23/24 07:59 09/23/24 10:51 09/23/24 10:56 Height 5 ft 4 in 5 ft 4 in 5 ft 4 in 5 ft 4 in Weight: 163 lb 163 lb 4 oz BMI 27.9 28.0 BP 118/74 116/80 Blood Pressure Location Lt brachial Position Sitting Respiration 14 Pulse 79 Pulse Source Monitor Temp 97.4 F L Pulse Oximetry (%) 97 Oxygen Delivery Method room air Intake Visit Reasons: EMB *abdoulaye from 08/19 Chief Complaint: EMB Sane Rn Required: No Is patient in pain?: No Allergies No Known Allergies Allergy (Verified 09/23/24 10:51) Medications ???Medication ???Instructions ???Recorded ???Confirmed ???Type tirzepatide 5 mg/0.5 mL 5 mg (0.5 mL) subcut QWEEK #2 mL 0 09/23/24 09/23/24 Rx subcutaneous pen injector Is last menstrual period known: Yes Last Menstrual Period: 09/15/24 Post menopausal: No Patient : No : No Control Method: Tubal PFSH PFSH Medical History Essential hypertension Bowel wall thickening Gallstones CKD (chronic kidney disease) stage 2, GFR 60-89 ml/min Type 2 diabetes mellitus Diarrhea Hemorrhoids Acid reflux Surgical History H/O tubal ligation History of dilation and curettage S/P tonsillectomy History of appendectomy Family History Father Diabetes Heart disease Hypertension High cholesterol Thyroid disorder Brother Diabetes Hypertension Grandmother Breast cancer Aunt Breast cancer x2 plus their 2 daughters Mother Hypertension Social History household members: spouse current occupational status: employed 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 Date Name GA/Weeks Outcome Route Bth Weight Infant Gen Labor Lgth Anesthesia Del Locatn Provider FOB Unknown Christopher HPI EMB *abdoulaye from 08/19 Details: TETE STEWARD is a 53 year old who presents for endometrial biopsy. She has had prolonged spotting and bleeding with very heavy menses. Menses will still occur every 28 days but last up to 10-12 days. Female Reproductive History Last Menstrual Period: 09/15/24 ROS Const Constitutional: Reports system reviewed and no additional complaints, except as documented Eyes Eyes: Reports system reviewed and no additional complaints, except as documented GI GI: Denies abdominal pain or change in bowel habits : Reports as per HPI Exam Const General: cooperative and no acute distress Orientation: oriented x3 Resp Effort Inspection: normal respiratory effort General: bladder normal to palpation External Female Exam: normal external appearance and normal appearance of the urethra Urethra: normal appearance of the urethra Speculum Exam - Vagina: normal appearance of the vagina, normal vaginal discharge, no lesions and nontender Speculum Exam - Cervix: normal appearance of the cervix Bimanual Exam- Vagina Uterus: normal bimanual exam, uterine size normal (prominent anteriorly), bladder normal to palpation, uterine mobility normal and non-tender Bimanual Exam- Adnexa, other: normal adnexae, no masses and non-tender Office Procedures Endometrial Biopsy Endometrial Biopsy Test: Yes Negative Consent Signed: Yes Time out checklist: patient, procedure, site marked/identified, positioning of patient, supplies available, allergies confirmed and team agrees on procedure Time out time: 11:05 tenaculum used: Yes dilator used: No Details: Cervix prepped with betadine and syringe pipelle inserted 7 cm into uterus without complication. Specimen obtained and sent to lab for analysis. All instruments removed from vagina without complications. Excellent hemostasis noted. Results POC A1C POC A1C 4.5 % Last Edit by Laura Purdy MA on 09/23/24 08:02 Coding Lev (more content not included)... Normal [facility] Surgery Specimen Level Taj 09-23-2024 Surgery Specimen Level IV -------- Patient Age/Sex Location Account Attending Physician -------- TETE STEWARD 53/F LABSPEC [id number] NILO Esteban -------- Specimen: [id number] Received: 09/23/24 Status: CHERYL Patton Num: [id number] Spec Type: ENDOM BX/C Subm Dr: NILO Esteban HEADER OPERATION: EMB PRE-OP DIAGNOSIS: AUB TISSUE SUBMITTED: A- Endometrial lining -------- MICROSCOPIC DIAGNOSIS A. Endometrium, AUB, biopsy: - Fragments of mildly disordered proliferative endometrium. MICROSCOPIC DESCRIPTION Slides are reviewed. GROSS DESCRIPTION A. Received in formalin labeled with the patient's name and date of is a 2.5 x 0.8 x 0.1 cm aggregate of mucoid material and flecks of kumar-pink tissue. Entirely submitted in 1 cassette. [place] 09/23/2024 CPT:69915 -------- Patient Age/Sex Location Account Attending Physician -------- TETE STEWARD 53/F LABSPEC [id number] NILO Esteban -------- Signed (signature on file) Dr. Missy Drummond MD 09/30/24 0956 -------- Normal [facility] Comment on above: Performed By: #### P SUDASHA ####[facility] [id number] [place], [address] Internal Medicine Office Vis good 09-22-2024 Internal Medicine Office Visit [facility] [address] [place] [address] [address] [place] [address] OFFICE VISIT Date of Service: 09/23/24 MR#: [id number] Acct: [id number] Name: TETE STEWARD Rep #: [id number] : 1970 Provider: Dr. Sadaf lopez MD Age/Sex: 53/F [place] [facility] Status: Signed Intake Vital Signs 02/21/24 08:50 09/23/24 07:59 Height 5 ft 4 in 5 ft 4 in Weight: 163 lb BMI 27.9 BP 118/74 Blood Pressure Location Lt brachial Position Sitting Respiration 14 Pulse 79 Pulse Source Monitor Temp 97.4 F L Temp Source Temporal Pulse Oximetry (%) 97 Oxygen Delivery Method room air Intake Visit Reasons: MED Sane Rn Required: No Is patient in pain?: No Allergies No Known Allergies Allergy (Verified 09/23/24 07:50) Medications ???Medication ???Instructions ???Recorded ???Confirmed ???Type tirzepatide 5 mg/0.5 mL 5 mg (0.5 mL) subcut QWEEK #2 mL 0 09/23/24 09/23/24 Rx subcutaneous pen injector Nurse's Note: Pt wants to increase dose of mounjaro, has seen an increase in appetite as she has been on this dose awhile. [facility] Medical History (Updated 09/23/24 @ 09:[address] 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 She is up to date on her routine blood work. She is due for a mammogram and has an order for that. She previously declined any immunizations.??? She doesn't smoke and does need refills.??? She reports she hasn't been eating as healthy recently. She reports she does work out every day and has been exercising. She has been monitoring her sugars at home just occasionally and reports they have been mostly in the 110s. This morning it was 113. She reports some days she does try to monitor her carbohydrates and sugars and other days, she doesn't do as well. At her last office visit, she did resume her mounjaro. She reports she has been doing well with it. She never scheduled her diabetic eye exam. She doesn't follow with podiatry. She has no other questions or concerns at this time. ROS Const Constitutional: Positive for weight change (27 pound weight loss); No body ache, chills, excessive sweating, fatigue, fever(s), frequent falls, headache(s), snoring, weakness, sleep problems or change in appetite Eyes Eyes: No blurry vision, change in vision, eye pain or Light sensitivity ENT ENT: No abnormal hearing, ear or mastoid pain, tinnitus, nasal congestion, headache(s), neck pain or sore throat Resp Respiratory: No cough, shortness of breath, snoring or wheezing Cardio Cardiology: No chest pain at rest, chest pain with exertion, excessive sweating, shortness of breath, dyspnea on exertion, lightheadedness, orthopnea, palpitations or other (no leg swelling) Gastro GI: No abdominal pain, change in bowel habits, constipation, cramping, diarrhea, nausea/dyspepsia or vomiting Genitourinary-Female: No difficulty urinating, burning urination, painful urination, urinary incontinence, urinary frequency, abnormal vaginal bleeding or pelvic pain Musc Musculoskeletal: No abnormal gait, joint pain, back pain, limited range of motion, neck pain, numbness or tingling Skin Skin: No dry skin, redness, lesions, itchy eyes, rash or wounds Neuro Neurology: No abnormal gait, abnormal hearing, dizziness, weakness, frequent falls, headache(s), memory loss, numbness, tingling or fainting Psych Psychiatric: No anxiety, No change in appetite, No depression, No memory loss and No Thoughts of harming yourself/Others Endo Endocrine: Positive for weight change (27 pound weight loss); No cold intolerance, excessive sweating, fatigue, flushing, (more content not included)... Normal [facility] PAP IG HPV APTIMA 16/18,45on 03-03-2024 ADEQ Comment Normal . [facility] Comment on above: Order Comment: Speci men Comment: [id number] Comment: Source.............CervixSpecimen Comment: No. of containers..01 ThinPrep Vial Result Comment: Sati sfactory for evaluation. Endocervical and/or squamous metaplastic cells (endocervical component) are present. Performed By: #### L 7400.0280 ####[facility] [address] [place], [place], [id number] COMM . Normal . [facility] Comment on above: Order Comment: Speci men Comment: [id number] Comment: Source.............CervixSpecimen Comment: No. of containers..01 ThinPrep Vial Performed By: #### L 7400.0280 ####[facility] [address] [place], [place], [id number] COMMENT Comment Normal . [facility] Comment on above: Order Comment: Speci men Comment: [id number] Comment: Source.............CervixSpecimen Comment: No. of containers..01 ThinPrep Vial Result Comment: This liquid based ThinPrep(R) pap test was screened with the use of an image guided system. Performed By: #### L 7400.0280 ####[facility] [address] [place], [place], [id number] DIAG Comment Normal . [facility] Comment on above: Order Comment: Speci men Comment: [id number] Comment: Source.............CervixSpecimen Comment: No. of containers..01 ThinPrep Vial Result Comment: NEGA TIVE FOR INTRAEPITHELIAL LESION OR MALIGNANCY. Performed By: #### L 7400.0280 ####[facility] [address] [place], [place], [address] HPV APTIMA, HR Negative Normal Negative [facility] Comment on above: Order Comment: Speci men Comment: [id number] Comment: Source.............CervixSpecimen Comment: No. of containers..01 ThinPrep Vial Result Comment: This nucleic acid amplification test detects fourteen high- risk HPV types (16,18,31,33,35,39,45,51,52,56,58,59,66,68) without differentiation. Performed By: #### L 7400.0280 ####[facility] [address] [place], [place], [address] HPV Fernanda Rfx Comment Normal . [facility] Comment on above: Order Comment: Speci men Comment: [id number] Comment: Source.............CervixSpecimen Comment: No. of containers..01 ThinPrep Vial Result Comment: Crit eria not met, HPV Genotype not performed. Performed at: [facility] Cyto Histo [address] [place] [id number] Filtering Machine Tender Helper: Eduar Guerrero MD, Phone: [phone] Performed at: [address] [id number] Filtering Machine Tender Helper: Aimee Dominguez MD, Phone: [phone] Performed at: =[address] [id number] Filtering Machine Tender Helper: Aimee Dominguez MD, Phone: [phone] Performed By: #### L 7400.0280 ####[facility] [address] [place], [place], [address] PAPSMR Comment Normal . [facility] Comment on above: Order Comment: Speci men Comment: [id number] Comment: Source.............CervixSpecimen Comment: No. of containers..01 ThinPrep Vial Result Comment: The Pap smear is a screening test designed to aid in the detection of premalignant and malignant conditions of the uterine cervix. It is not a diagnostic procedure and should not be used as the sole means of detecting cervical cancer. Both false-positive and false-negative reports do occur. Performed By: #### L 7400.0280 ####[facility] [address] [place], [place], [address] PERFORM Comment Normal . [facility] Comment on above: Order Comment: Speci men Comment: [id number] Comment: Source.............CervixSpecimen Comment: No. of containers..01 ThinPrep Vial Result Comment: Waldo Urbina, Wood Heel Back Liner (ASCP) Performed By: #### L 7400.0280 ####[facility] [address] [place], [place], [address] Estradiolon 02-22-2024 ESTRADIOL 91.6 pg/mL Normal [facility] Comment on above: Result Comment: NORM AL REFERENCE RANGES FEMALE FOLLICULAR 21.4 - 164.8 pg/mL MID-CYCLE PEAK 49.9 - 367.2 pg/mL LUTEAL 40.2 - 259.0 pg/mL POST-MENOPAUSAL ON MHT <11.0 - 462.1 pg/mL NOT ON MHT <11.0 - 58.3 pg/mL MALE <11.0 - 52.5 pg/mL NOTE: [facility] HAS CONFIRMED THE DRUG FULVETRANT (FASLODEX) MAY CAUSE FALSELY ELEVATED ESTRADIOL RESULTS WHEN USING THIS TEST METHOD. IF PATIENT IS TAKING FULVESTRANT AN ALTERNATIVE METHOD SHOULD BE USED TO DETERMINE ESTRADIOL CONCENTRATION. Performed By: #### L 3300.1750, L501.9520, L3100.5125, L506.0400 #### [facility] [address] [place], [address] Follicle Stimulating Hormone on 02-22-2024 FSH 6.4 mIU/mL Normal [facility] Comment on above: Result Comment: NORMAL REFERENCE RANGES FEMALE FOLLICULAR 2.3 - 12.6 mIU/mL MID-CYCLE PEAK 5.2 - 17.5 mIU/mL LUTEAL 1.7 - 12.9 mIU/mL POST-MENOPAUSAL ON MHT 5.9 - 72.8 mIU/mL NOT ON MHT 12.7 - 132.2 mlU/mL MALE 0.7 - 10.8 mIU/mL Performed By: #### L 3300.1750, L501.9520, L3100.5125, L506.0400 #### [facility] [address] [place], [address] T4 Free Directon 02-22-2024 T4 FREE DIRECT 1.00 ng/dL Normal 0.76-1.46 [facility] Comment on above: Performed By: #### L 3300.1750, L501.9520, L3100.5125, L506.0400 #### [facility] [address] [place], [address] Thyroid Stim Hormone (TSH)on 02-22-2024 TSH 1.660 uIU/mL Normal 0.358-3.740 [facility] Comment on above: Performed By: #### L 3300.1750, L501.9520, L3100.5125, L506.0400 #### [facility] [address] [place], [address] Customer Development Representative Office Visit Reporton 02-21-2024 Customer Development Representative Office Visit Report [facility] [address], [address] [place] [address] OFFICE VISIT Date of Service: 02/21/24 MR#: [id number] Acct: [id number] Name: BINTETE TRAYLOR Rep #: [id number] : 1970 Provider: NILO Mace Age/Sex: 53/F [place] [facility] [place]: [place] Intake Vital Signs 03/27/23 14:26 01/29/24 07:25 02/21/24 08:50 Height 5 ft 4 in 5 ft 4 in 5 ft 4 in Weight: 155 lb 190 lb BMI 26.6 32.5 BP 116/72 154/93 H Blood Pressure Location Lt brachial Position Sitting Respiration 14 Pulse 90 Pulse Source Monitor Temp 97.9 F Pulse Oximetry (%) 99 Oxygen Delivery Method room air 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) Chief Complaint: annual Sane Rn Required: No Is patient in pain?: No Allergies No Known Allergies Allergy (Verified 02/21/24 15:06) Is last menstrual period known: Yes Last Menstrual Period: 01/26/24 Post menopausal: No Patient : No : No Control Method: tubal PFSH Medical History Bowel wall thickening HTN (hypertension) Gallstones CKD (chronic kidney disease) stage 2, GFR 60-89 ml/min Type 2 diabetes mellitus Diarrhea Hemorrhoids Acid reflux Surgical History H/O tubal ligation History of dilation and curettage S/P tonsillectomy History of appendectomy Family History Father Diabetes Heart disease Hypertension High cholesterol Thyroid disorder Brother Diabetes Hypertension Grandmother Breast cancer Aunt Breast cancer x2 plus their 2 daughters Mother Hypertension Social History household members: spouse current occupational status: employed 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 Date Name GA/Weeks Outcome Route Bth Weight Gen Labor Lgth Anesthesia Del Locatn Provider FOB Unknown Christopher HPI Encounter for routine gynecological examination Details: TETE STEWARD is a 53 year old who presents for annual exam. She reports previous appt she was having abnormal uterine bleeding; at that time she started taking norethindrone 5mg and this was helpful however over the past 2 months she finds her menses are heavier and longer and more painful with cramping. Last PAP: 2022; unsatisfactory for evaluation in 2022; HPV (-) History of abnormal PAP: no Last mammogram: 2022; normal History of abnormal mammogram: no Colon cancer screening: never Other preventative health care screenings: [facility] pcp Female Reproductive History Last Menstrual Period: 01/26/24 Cycle Length: 21-35 Bleeding Duration: 6 Questions: metorrhagia: No, sexually active: Yes (tubal), dyspareunia: No and PCB: No ROS Const Constitutional: Denies chills, fatigue, fever(s), headache(s) or weight loss Eyes Eyes: Denies change in vision ENT ENT: Denies dizziness Resp Resp: Denies cough GI GI: Denies abdominal pain, constipation or nausea : Denies difficulty voiding, dysuria, hematuria, nipple discharge, pelvic pain, prolapse symptoms, urinary incontinence, vaginal discharge, vaginal dryness, vaginal odor or vaginal pruritus Skin Skin/Breast: Denies alopecia, rash, breast mass, breast pain, breast skin changes or nipple discharge Neuro Neuro: Denies dizziness Psych Psych: Denies anxiety or depression Endo Endo: Denies cold intolerance, excessive sweating or heat intolerance Exam Const General: cooperative, healthy appearing, comfortable, no acute distress, well groomed and well hydrated Nutritional Appearance: well nourished Orientation: alert, awake and oriented x3 HENMT Head: normal to inspection and normocephalic Ears: hearing grossly normal bilaterally and external ears normal Nose: external nose normal Face and sinus: normal facial exam Eyes General: appearance normal, both eyes and all related structures Neck Neck: normal visual inspection, full ROM and no lymphadenopathy Thyroid: thyroid normal Chest Chest palpation inspection: normal inspection of the chest Breast inspection: normal inspection of the breasts and normal inspection of the axillae Breast palpation: normal palpatio (more content not included)... Normal [facility] CBC W/Diff, Automatedon 11-1 2-2024 Absolute Lymph 1.51 X10 3/uL Normal 0.83-4.51 [facility] Comment on above: Performed By: #### L 100.0100, L500.4100, L500.4050, L502.0250 #### [facility] [address] [place], [address] Absolute Neut 2.4 X10 3/uL Normal 2.0-7.7 [facility] Comment on above: Performed By: #### L 100.0100, L500.4100, L500.4050, L502.0250 #### [facility] [address] [place], [address] Basophils/100 WBC (Bld) 1.3 % High 0-1 [facility] Comment on above: Performed By: #### L 100.0100, L500.4100, L500.4050, L502.0250 #### [facility] [address] [place], [address] Eosinophils/100 WBC (Bld) 4.8 % Normal 0-5 [facility] Comment on above: Performed By: #### L 100.0100, L500.4100, L500.4050, L502.0250 #### [facility] [address] [place], [address] Erythrocyte distribution width (RBC) [Ratio] 13.2 % Normal 11.6-14.6 [facility] Comment on above: Performed By: #### L 100.0100, L500.4100, L500.4050, L502.0250 #### [facility] [address] [place], [address] Hematocrit (Bld) [Volume fraction] 38.2 % Normal 37-47 [facility] Comment on above: Performed By: #### L 100.0100, L500.4100, L500.4050, L502.0250 #### [facility] [address] [place], [address] Hemoglobin (Bld) [Mass/Vol] 13.0 g/dL Normal 12.0-15.0 [facility] Comment on above: Performed By: #### L 100.0100, L500.4100, L500.4050, L502.0250 #### [facility] [address] [place], [address] IG% 0.400 Normal 0.0-0.9 [facility] Comment on above: Result Comment: IG% - Immature Granulocytes (promyelocytes, myelocytes and metamyelocytes) > 1% indicates that a LEFT SHIFT is Present. Performed By: #### L 100.0100, L500.4100, L500.4050, L502.0250 #### [facility] [address] [place], [address] Lymphocytes/100 WBC (Bld) 33.2 % Normal 19-41 [facility] Comment on above: Performed By: #### L 100.0100, L500.4100, L500.4050, L502.0250 #### [facility] [address] [place], [address] MCH (RBC) [Entitic mass] 28.4 pg Normal 27.0-32.0 [facility] Comment on above: Performed By: #### L 100.0100, L500.4100, L500.4050, L502.0250 #### [facility] [address] [place], [address] MCHC (RBC) [Mass/Vol] 34.0 g/dL Normal 32-36 [facility] Comment on above: Performed By: #### L 100.0100, L500.4100, L500.4050, L502.0250 #### [facility] [address] [place], [address] MCV (RBC) [Entitic vol] 83.6 fL Normal 81-99 [facility] Comment on above: Performed By: #### L 100.0100, L500.4100, L500.4050, L502.0250 #### [facility] [address] [place], [address] Monocytes/100 WBC (Bld) 7.9 % Normal 0-10 [facility] Comment on above: Performed By: #### L 100.0100, L500.4100, L500.4050, L502.0250 #### [facility] [address] [place], [address] Neutrophils/100 WBC (Bld) 52.4 % Normal 47-70 [facility] Comment on above: Performed By: #### L 100.0100, L500.4100, L500.4050, L502.0250 #### [facility] [address] [place], [address] Nucleated RBC (Bld) [#/Vol] 0 10*3/uL Normal 0-5 [facility] Comment on above: Performed By: #### L 100.0100, L500.4100, L500.4050, L502.0250 #### [facility] [address] [place], [address] Platelet mean volume (Bld) [Entitic vol] 10.0 fL Normal 6.2-12.0 [facility] Comment on above: Performed By: #### L 100.0100, L500.4100, L500.4050, L502.0250 #### [facility] [address] [place], [address] Platelets (Bld) [#/Vol] 307 10*3/uL Normal 150-450 [facility] Comment on above: Performed By: #### L 100.0100, L500.4100, L500.4050, L502.0250 #### [facility] [address] [place], [address] RBC (Bld) [#/Vol] 4.57 10*6/uL Normal 4.2-5.4 [facility] Comment on above: Performed By: #### L 100.0100, L500.4100, L500.4050, L502.0250 #### [facility] [address] [place], [address] RDW SD 40.0 fl Normal 35.1-43.9 [facility] Comment on above: Performed By: #### L 100.0100, L500.4100, L500.4050, L502.0250 #### [facility] [address] [place], [address] WBC (Bld) [#/Vol] 4.6 10*3/uL Normal 4.4-11.0 [facility] Comment on above: Performed By: #### L 100.0100, L500.4100, L500.4050, L502.0250 #### [facility] [address] [place], [address] Comprehensive Metabolic Prof [facility] 01-29-2024 Albumin [Mass/Vol] 3.6 g/dL Normal 3.2-5.0 [facility] Comment on above: Performed By: #### L 100.0100, L500.4100, L500.4050, L502.0250 #### [facility] [address] [place], [address] Albumin/Globulin [Mass ratio] 0.9 {ratio} Normal 0.9-2.4 [facility] Comment on above: Performed By: #### L 100.0100, L500.4100, L500.4050, L502.0250 #### [facility] [address] [place], [address] ALK P 84 U/L Normal 45-117 [facility] Comment on above: Performed By: #### L 100.0100, L500.4100, L500.4050, L502.0250 #### [facility] [address] [place], [address] ALT [Catalytic activity/Vol] 14 U/L Normal 13-56 [facility] Comment on above: Performed By: #### L 100.0100, L500.4100, L500.4050, L502.0250 #### [facility] [address] [place], [address] AST [Catalytic activity/Vol] 11 U/L Low 15-37 [facility] Comment on above: Performed By: #### L 100.0100, L500.4100, L500.4050, L502.0250 #### [facility] [address] [place], [address] Bilirubin [Mass/Vol] 0.30 mg/dL Normal 0.20-1.00 [facility] Comment on above: Result Comment: For patients on eltrombopag therapy, use of Dimension [place] TBIL is not recommended. Performed By: #### L 100.0100, L500.4100, L500.4050, L502.0250 #### [facility] [address] [place], [address] BUN/CRE 19.8 RATIO Normal 10-20 [facility] Comment on above: Performed By: #### L 100.0100, L500.4100, L500.4050, L502.0250 #### [facility] [address] [place], [address] CA,Total 9.0 mg/dL Normal 8.5-10.1 [facility] Comment on above: Performed By: #### L 100.0100, L500.4100, L500.4050, L502.0250 #### [facility] [address] [place], [address] Chloride [Moles/Vol] 106 mmol/L Normal 98-107 [facility] Comment on above: Performed By: #### L 100.0100, L500.4100, L500.4050, L502.0250 #### [facility] [address] [place], [address] CO2 [Moles/Vol] 26.0 mmol/L Normal 21.0-32.0 [facility] Comment on above: Performed By: #### L 100.0100, L500.4100, L500.4050, L502.0250 #### [facility] [address] [place], [address] Creatinine [Mass/Vol] 0.76 mg/dL Normal 0.55-1.02 [facility] Comment on above: Result Comment: The validity of the calculated GFR GFRAA in patients over 70 years has not been determined. Clinical correlation is essential. Performed By: #### L 100.0100, L500.4100, L500.4050, L502.0250 #### [facility] [address] [place], [address] EST GFR - AA 102 mL/min Normal >60 [facility] Comment on above: Result Comment: Afri can [place]uran GFR Calc Performed By: #### L 100.0100, L500.4100, L500.4050, L502.0250 #### [facility] [address] [place], [address] GAP 6 Normal 5-15 [facility] Comment on above: Performed By: #### L 100.0100, L500.4100, L500.4050, L502.0250 #### [facility] [address] [place], [address] GFR/1.73 sq M.predicted among non-blacks MDRD (S/P/Bld) [Vol rate/Area] 84 mL/min/{1.73_m2} Normal >60 [facility] Comment on above: Result Comment: Non- GFR Calc Performed By: #### L 100.0100, L500.4100, L500.4050, L502.0250 #### [facility] [address] [place], [address] Globulin (S) [Mass/Vol] 4.0 g/dL Normal 2.2-4.2 [facility] Comment on above: Performed By: #### L 100.0100, L500.4100, L500.4050, L502.0250 #### [facility] [address] [place], [address] Glucose [Mass/Vol] 148 mg/dL High 74-106 [facility] Comment on above: Result Comment: Fast ing Glucose result greater than or equal to 126 mg/dL suggests DIABETES MELLITUS per A.D.A. criteria. Performed By: #### L 100.0100, L500.4100, L500.4050, L502.0250 #### [facility] [address] [place], [address] Potassium [Moles/Vol] 4.3 mmol/L Normal 3.5-5.1 [facility] Comment on above: Performed By: #### L 100.0100, L500.4100, L500.4050, L502.0250 #### [facility] [address] [place], [address] Sodium [Moles/Vol] 138 mmol/L Normal 136-145 [facility] Comment on above: Performed By: #### L 100.0100, L500.4100, L500.4050, L502.0250 #### [facility] [address] [place], [address] T PROT 7.6 g/dL Normal 6.4-8.2 [facility] Comment on above: Performed By: #### L 100.0100, L500.4100, L500.4050, L502.0250 #### [facility] [address] [place], [address] Urea nitrogen [Mass/Vol] 15 mg/dL Normal 7-18 [facility] Comment on above: Performed By: #### L 100.0100, L500.4100, L500.4050, L502.0250 #### [facility] [address] [place], [address] Lipid Profileon 01-29-2024 Cholesterol [Mass/Vol] 194 mg/dL Normal 200 [facility] Comment on above: Result Comment: <200 mg/dL Desirable 200-240 mg/dL Borderline >240 mg/dL High Risk Performed By: #### L 100.0100, L500.4100, L500.4050, L502.0250 ####[facility] [address] [place], [address] Cholesterol in HDL [Mass/Vol] 63 mg/dL Normal [facility] Comment on above: Result Comment: The drugs N-Acetylcysteine and Metamizole may falsely depress this assay. Reference Range HDL <40 mg/dL Low HDL Cholesterol HDL >or= 60 mg/dL High HDL Cholesterol Performed By: #### L 100.0100, L500.4100, L500.4050, L502.0250 ####[facility] [address] [place], [address] Cholesterol in LDL [Mass/Vol] 119 mg/dL Normal 0-130 [facility] Comment on above: Performed By: #### L 100.0100, L500.4100, L500.4050, L502.0250 ####[facility] [address] [place], [address] Cholesterol in VLDL [Mass/Vol] 12 mg/dL Normal 5-40 [facility] Comment on above: Performed By: #### L 100.0100, L500.4100, L500.4050, L502.0250 ####[facility] [id number] [place], [address] Triglyceride [Mass/Vol] 62 mg/dL Normal [facility] Comment on above: Result Comment: The drugs N-Acetylcysteine and Metamizole may falsely depress this assay. Serum Triglycerides Reference Interval Normal <150 mg/dL Borderline high 150 - 199 mg/dL High 200 - 499 mg/dL Very High > or = 500 mg/dL Performed By: #### L 100.0100, L500.4100, L500.4050, L502.0250 ####[facility] [address] [place], [address] Microalb:Creat Ratio,Random URon 01-29-2024 Creatinine [Mass/Vol] 94.80 mg/dL Normal NO RANGE EST. [facility] Comment on above: Performed By: #### L 100.0100, L500.4100, L500.4050, L502.0250 ####[facility] [address] [place], [address] MALB:CRE 5.8 mg/g CRE Normal <30 mg/g CRE [facility] Comment on above: Performed By: #### L 100.0100, L500.4100, L500.4050, L502.0250 ####[facility] [address] [place], [address] MICROALBUMIN,UR 5.5 mg/L Normal NO RANGE EST. [facility] Comment on above: Performed By: #### L 100.0100, L500.4100, L500.4050, L502.0250 ####[facility] [address] [place], [address] Internal Medicine Office Vis iton 01-28-2024 Internal Medicine Office Visit [facility] [address] [place] [address] OFFICE VISIT Date of Service: 01/29/24 MR#: [id number] Acct: [id number] Name: TETE STEWARD Rep #: [id number] : 1970 Provider: Dr. Sadaf lopez MD Age/Sex: 53/F [place] [facility] [place] Status: Signed Intake Vital Signs 03/27/23 14:26 01/29/24 07:25 Height 5 ft 4 in 5 ft 4 in Weight: 182 lb BMI 31.2 BP 124/84 H Blood Pressure Location Lt brachial Position Sitting Respiration 14 Pulse 66 Pulse Source Monitor Temp 97.1 F L Temp Source Temporal Pulse Oximetry (%) 97 Oxygen Delivery Method room air Intake Visit Reasons: discuss meds Sane Rn Required: No Is patient in pain?: No Allergies No Known Allergies Allergy (Verified 01/29/24 07:19) Medications ???Medication ???Instructions ???Recorded ???Confirmed ???Type tirzepatide 2.5 mg/0.5 mL 2.5 mg (0.5 mL) subcut QWEEK #6 mL 01/29/24 01/29/24 Rx subcutaneous pen injector (Mounjaro) Nurse's Note: States she came off of mounjaro in June and wants to go back on it. States she has been stress eating. Declines flu vaccine. Is fasting so will do labs after appointment as she never got them done earlier this year. [facility] Medical History Bowel wall thickening HTN (hypertension) Gallstones CKD (chronic kidney disease) stage 2, GFR 60-89 ml/min Type 2 diabetes mellitus Diarrhea Hemorrhoids Acid reflux Surgical History H/O tubal ligation History of dilation and curettage S/P tonsillectomy History of appendectomy Family History Father Diabetes Heart disease Hypertension High cholesterol Thyroid disorder Brother Diabetes Hypertension Grandmother Breast cancer Aunt Breast cancer x2 plus their 2 daughters Mother Hypertension Social History household members: spouse current occupational status: employed 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 She hasn't completed her blood work as previously ordered, but reports she will get that done today. She is up to date on her screening, reporting she wants to do mammograms every 2 years.??? She doesn't want her flu shot.??? She doesn't smoke and doesn't currently take any prescription medications.??? She reports she hasn't been eating as healthy recently. She is trying to stay active, but isn't as active as she should be. She has been monitoring her sugars at home and reports they fluctuate between 120-160. Yesterday it was 146. She will hasn't had any very low readings. The patient stopped taking the medication back in June when she was well controlled. She states in October, she started gaining weight again, up nearly 30 pounds since March. She reports some days she does try to monitor her carbohydrates and sugars and other days, she doesn't do as well. She is interested in getting back on the mounjaro. She never scheduled her diabetic eye exam. She doesn't follow with podiatry. She has no other questions or concerns at this time. ROS Const Constitutional: Positive for weight change (27 pound weight gain); No body ache, chills, excessive sweating, fatigue, fever(s), frequent falls, headache(s), snoring, weakness, sleep problems or change in appetite Eyes Eyes: No blurry vision, change in vision, eye pain or Light sensitivity ENT ENT: No abnormal hearing, ear or mastoid pain, tinnitus, nasal congestion, headache(s), neck pain or sore throat Resp Respiratory: No cough, shortness of breath, snoring or wheezing Cardio Cardiology: No chest pain at rest, chest pain with exertion, excessive sweating, shortness of breath, dyspnea on exertion, lightheadedness, orthopnea, palpitations or other (no leg swelling) Gastro GI: No abdominal pain, change in bowel habits, constipation, cramping, diarrhea, nausea/dyspepsia or vomiting Genitourinary-Female: No difficulty urinating, burning urination, painful urination, urinary incontinence, urinary frequency, abnormal vaginal bleeding or pelvic pain Musc Musculoskeletal: No abnormal gait, joint pain, back pain, limited range of motion, neck pain, numbness or tingling Skin Skin: No dry skin, redness, lesions, itchy eyes, rash or wounds Neuro Neurology: No abnormal g (more content not included)... Normal [facility] Cervical or vagninal specime n microscopic examination by cytology stain (reported asOrdered By: Rhina Rucker on 01-10-2023 Cytology report Cyto stain Doc (Cvx/Vag) Comment . [facility] Comment on above: The Pap smear is a s creening test designed to aid in thedetection of premalignant and malignant conditions of theuterine cervix. It is not a diagnostic procedure andshould not be used as the sole means of detecting cervicalcancer. Both false-positive and false-negative reports dooccur. Detection in cervical specim en of any of human papilloma virus (HPV) 16, 18, 31, 33,Ordered By: Rhina Rucker on 01-10-2023 HPV 16+18+31+33+35+39+45+51 +52+56+58+59+66+68 DNA Probe+sig amp Ql (Cvx) Negative Negative [facility] Comment on above: This nucleic acid am plification test detects fourteen high-risk HPV types (16,18,31,33,35,39,45,51,52,56,58,59,66,68)without differentiation. Laboratory - CytologyOrdered By: Rhina Rucker on 01-10-2023 Special Education Bus Driver Cyto stain Nom (Cvx/Vag) [ID] Comment . [facility] Comment on above: Martha Barillas, Cyto technologist (ASCP) Recommended follow-up Cyto stain Nom (Cvx/Vag) Comment . [facility] Comment on above: Suggest follow up as clinically appropriate. Laboratory - Miscellaneous t estsOrdered By: Rhina Rucker on 01-10-2023 Service comment (Unsp spec) [Interp] TNP [facility] Comment on above: Test not performedTh e Thin Prep(R) Extension Forester was unable to read this specimen.Therefore a manual review was performed. Service comment (Unsp spec) [Interp] . . [facility] Liquid-based cerv Pap + CT/G C by REDD w reflex to high-risk HPV for ASCUSOrdered By: Rhina Rucker on 01-10-2023 Cytology report Cyto stain.thin prep Doc (Cvx/Vag) Comment . [facility] Comment on above: Criteria not met, HP V Genotype not performed.Performed at: - [facility] [id number] Director: Aimee Dominguez MD, Phone: [phone] at: = - [facility] [id number] Director: Aimee Dominguez MD, Phone: [phone] No Panel InformationOrdered By: Rhina Rucker on 01-10-2023 Pap Smear Specimen Adequacy Comment . [facility] Comment on above: Specimen processed a nd examined but unsatisfactory for evaluation ofepithelial abnormality because of insufficient cellularity. Pathology report final diagnosis Narrative Comment . [facility] Comment on above: UNSATISFACTORY FOR E VALUATION. Absolute lymphocyte countOrd ered By: Dr. Neal on 05-26-2022 Lymphocytes Auto (Unsp spec) [#/Vol] 2.09 10*3/uL 0.83-4.51 [facility] Basophil percentageOrdered B y: Dr. Neal on 05-26-2022 Basophils/100 WBC (Bld) 0.8 % 0-1 [facility] Bilirubin [Mass/Vol] 0.50 mg/dL 0.20-1.00 [facility] Comment on above: For patients on eltr ombopag therapy, use of Dimension [place] TBIL is not recommended. Chloride [Moles/Vol] 102 mmol/L 98-107 [facility] Cholesterol [Mass/Vol] 164 mg/dL <200 [facility] Comment on above: <200 mg/dL Desirable 200-240 mg/dL Borderline >240 mg/dL High Risk Eosinophils/100 WBC (Bld) 2.4 % 0-5 [facility] Glucose [Mass/Vol] 278 mg/dL 74-106 [facility] Comment on above: Glucose result great er than or equal to 200 mg/dLsuggests DIABETES MELLITUS per A.D.A. criteria. Neutrophils (Bld) [#/Vol] 4.9 10*3/uL 2.0-7.7 [facility] Neutrophils/100 WBC (Bld) 63.2 % 47-70 [facility] Potassium [Moles/Vol] 4.4 mmol/L 3.5-5.1 [facility] Protein [Mass/Vol] 8.1 g/dL 6.4-8.2 [facility] Sodium [Moles/Vol] 134 mmol/L 136-145 [facility] Triglyceride [Mass/Vol] 88 mg/dL <199 [facility] Comment on above: The drugs N-Acetylcy steine and Metamizole may falsely depress this assay.Serum Triglycerides Reference Interval Normal <150 mg/dL Borderline high 150 - 199 mg/dL High 200 - 499 mg/dL Very High > or = 500 mg/dL WBC (Bld) [#/Vol] 7.8 10*3/uL 4.4-11.0 [facility] Blood erythrocytes count (nu mber/volume)Ordered By: Dr. Neal on 05-26-2022 RBC (Bld) [#/Vol] 4.77 10*6/uL 4.2-5.4 [facility] Blood hemoglobin measurement (mass/volume)Ordered By: Dr. Neal on 05-26-2022 Hemoglobin (Bld) [Mass/Vol] 13.9 g/dL 12.0-15.0 [facility] Blood lymphocytes/100 leukoc ytesOrdered By: Dr. Neal on 05-26-2022 Lymphocytes/100 WBC (Bld) 26.7 % 19-41 [facility] Blood monocytes/100 leukocyt esOrdered By: Dr. Neal on 05-26-2022 Monocytes/100 WBC (Bld) 6.4 % 0-10 [facility] Blood platelet mean volumeOr dered By: Dr. Neal on 05-26-2022 Platelet mean volume (Bld) [Entitic vol] 10.3 fL 6.2-12.0 [facility] Determination of erythrocyte mean corpuscular volume (MCV)Ordered By: Dr. Neal on 05-26-2022 MCV (RBC) [Entitic vol] 85.7 fL 81-99 [facility] Hematocrit Auto (Bld) [Volum e fraction]Ordered By: Dr. Neal on 05-26-2022 Hematocrit (Bld) [Volume fraction] 40.9 % 37-47 [facility] Laboratory - Chemistry and C hemistry - challengeOrdered By: Dr. Neal on 05-26-2022 ALP [Catalytic activity/Vol] 96 U/L 45-117 [facility] ALT [Catalytic activity/Vol] 35 U/L 13-56 [facility] CO2 [Moles/Vol] 26.0 mmol/L 21.0-32.0 [facility] Globulin (S) [Mass/Vol] 4.3 g/dL 2.2-4.2 [facility] Urea nitrogen/Creatinine [Mass ratio] 17.9 mg/mg 10-20 [facility] Laboratory - Hematology and Cell countsOrdered By: Dr. Neal on 05-26-2022 Erythrocyte distribution width (RBC) [Entitic vol] 41.1 fL 35.1-43.9 [facility] Erythrocyte distribution width (RBC) [Ratio] 13.2 % 11.6-14.6 [facility] Immature granulocytes/100 WBC (Bld) 0.500 % 0.0-0.9 [facility] Comment on above: IG% - Immature Granu locytes (promyelocytes, myelocytes and metamyelocytes) > 1% indicates that a LEFT SHIFT is Present. MCH (RBC) [Entitic mass] 29.1 pg 27.0-32.0 [facility] Nucleated RBC/100 WBC (Bld) [Ratio] 0 % 0-5 [facility] MCHC Auto (RBC) [Mass/Vol]Or dered By: Dr. Neal on 05-26-2022 MCHC (RBC) [Mass/Vol] 34.0 g/dL 32-36 [facility] No Panel InformationOrdered By: Dr. Neal on 05-26-2022 Urine Microalbumin/Creatinine Ratio 29.9 mg/g CRE <30 [facility] Estimated GFR (MDRD) Amer 107 mL/min >60 [facility] Comment on above: GFR Calc Estimated GFR (MDRD) Non-Af Amer 89 mL/min >60 [facility] Comment on above: Non- GFR Calc Platelets bldOrdered By: Dr. Neal on 05-26-2022 Platelets (Bld) [#/Vol] 348 10*3/uL 150-450 [facility] Serum or plasma albumin angel urement (mass/volume)Ordered By: Dr. Neal on 05-26-2022 Albumin [Mass/Vol] 3.8 g/dL 3.2-5.0 [facility] Serum or plasma albumin/glob ulin mass ratioOrdered By: Dr. Neal on 05-26-2022 Albumin/Globulin [Mass ratio] 0.9 {ratio} 0.9-2.4 [facility] Serum or plasma calcium angel urement (mass/volume)Ordered By: Dr. Neal on 05-26-2022 Calcium [Mass/Vol] 9.0 mg/dL 8.5-10.1 [facility] Serum or plasma cholesterol in HDL measurement (mass/volume)Ordered By: Dr. Neal on 05-26-2022 Cholesterol in HDL [Mass/Vol] 55 mg/dL >40 [facility] Comment on above: The drugs N-Acetylcy steine and Metamizole may falsely depress this assay. Reference Range HDL <40 mg/dL Low HDL Cholesterol HDL >or= 60 mg/dL High HDL Cholesterol Serum or plasma cholesterol in VLDL measurement (mass/volume)Ordered By: Dr. Neal on 05-26-2022 Cholesterol in VLDL [Mass/Vol] 18 mg/dL 5-40 [facility] Serum or plasma creatinine m easurement (mass/volume)Ordered By: Dr. Neal on 05-26-2022 Creatinine [Mass/Vol] 0.73 mg/dL 0.55-1.02 [facility] Comment on above: The validity of the calculated GFR & GFRAA in patients over 70 years has not been determined. Clinical correlation is essential. Serum or plasma low density lipoprotein (LDL) cholesterol measurement (mass/volume)Ordered By: Dr. Neal on 05-26-2022 Cholesterol in LDL [Mass/Vol] 91 mg/dL 0-130 [facility] Serum or plasma urea nitroge n measurement (mass/volume)Ordered By: Dr. Neal on 05-26-2022 Urea nitrogen [Mass/Vol] 13 mg/dL 7-18 [facility] Thin prep Papanicolaou smear with manual screeningOrdered By: Dr. Neal on 05-26-2022 Thin prep Papanicolaou smear with manual screening 32.0 mg/L NO RANGE EST. [facility] Thin prep Papanicolaou smear with manual screening 18 U/L 15-37 [facility] Thin prep Papanicolaou smear with manual screening 6 5-15 [facility] Urine creatinine measurement (mass/volume)Ordered By: Dr. Neal on 05-26-2022 Creatinine (U) [Mass/Vol] 107.00 mg/dL NO RANGE EST. [facility] Laboratory - Hematology and Cell countson 05-23-2022 HbA1c (Bld) [Mass fraction] 8.3 % 4.2-6.3 [facility] CNPNon 08-06-2020 CNPN Telephone (ENDOMN) TETE STEWARD ([id number]) 1970 F Date Time Provider Department 08/06/20 REJI DEMARCO ([facility]) ENDOMN During your visit today, we recorded the following information about you: Reji Demarco 08/06/2020 11:53 AM Signed IRB #: [id number] Title of study: The use of virtual weight management program for prescription of phentermine in patients with overweight or obesity compared to standard ewya-if-ydjc visits. Supervisor Billposting: Stuart Baires MD Research Police Investigator: Reji Demarco Office: [phone] Patient cancelled/ missed visit #3 for 07/16/2020. Previously had contacted patient to reschedule appointment. Unsuccessful attempts. We passed window for renewal of medication. Called in hopes of scheduling pt for Visit 4 last vitals check-in and to discuss continuity of treatment for the future. Emphasized that we appreciated her participation in trial. Patient states that since the beginning of the trial has only lost 4 lbs, she stated to be disappointed by her results due her costs and not bigger weight loss. Weight as of today 08/06/2020 per patient 200.8 lbs. No BP at home, last on file 132/89 and HR 81. Patient shares that she would no longer like to participate on the trial due to the high costs, she states that her insurance covered the Dietitian visit, but that she had to pay $350 for rus-qg-kvjuxk costs for medication and for lab work. She stated that she d/c medication 3 weeks ago. States that due to economic constraints is no longer interested in trial. Will share with PI. Thanked her for her honesty and her time. 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] 05/24/2017 06/18/2020 Gallstones [K80.20] 11/23/2017 Obesity, Class II, BMI 35-39.9 [E66.9] 01/01/2018 06/18/2020 Obesity, Class I, BMI 30-34.9 [E66.9] 06/18/2020 Controlled type 2 diabetes mellitus without com*06/18/2020 Encounter Status:Closed by REJI DEMARCO on 08/06/20 [facility] Jose 07-22-2020 SHANELLN Telephone (ENDOMN) TETE STEWARD ([id number]) 1970 F Date Time Provider Department 07/22/20 REJI DEMARCO ([facility]) WALE During your visit today, we recorded the following information about you: Reji Demarco 07/22/2020 2:36 PM Signed IRB #: [id number] Title of study: The use of virtual weight management program for prescription of phentermine in patients with overweight or obesity compared to standard ilah-wb-dstn visits. Supervisor Billposting: Stuart Baires MD Research Police Investigator: Reji Demarco Office: [phone] Attempted to contact patient regarding study to schedule visit 3 and visit 4 to hopefully catch the last few days of the renewal window. Called mobile and left voicemail. 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] 05/24/2017 06/18/2020 Gallstones [K80.20] 11/23/2017 Obesity, Class II, BMI 35-39.9 [E66.9] 01/01/2018 06/18/2020 Obesity, Class I, BMI 30-34.9 [E66.9] 06/18/2020 Controlled type 2 diabetes mellitus without com*06/18/2020 Encounter Status:Closed by REJI DEMARCO on 07/22/20 [facility] ELIZABETHon 06-18-2020 CNOV Office Visit (EWMLYN ) TETE STEWARD ([id number]) 1970 F Date Time Provider Department 06/18/20 8:30 AM STUART BAIRES During your visit today, we recorded the following information about you: Pulse Blood pressure Weight 81/minute 132/89 91.1 kg Nani M Ludivina, RD 06/18/2020 8:28 AM Signed Thank you for choosing the [facility] Department of Endocrinology, Diabetes and Metabolism. Did you know that you need to call 48 hours in advance of your scheduled visit, if you are unable to make your appointment? The Endocrinology and Metabolism [place] thanks you for your commitment, because patients not showing to their appointment results in a lost opportunity for patients to receive [facility] health care at the [facility]. To Cancel an appointment, please choose one of the following: - Call the Appointment Call Center at [phone] - From [employer], Go to Appointments ? Cancel Appts If cancelling, consider your need to reschedule to prevent further delays in your care. To Schedule an appointment, please choose one of the following: - Call the Appointment Call Center at [phone] - From [employer], Go to Appointments ? Request an Appt Stuart Baires MD 06/18/2020 9:26 AM Signed [facility] RETURN VISIT IRB #: [id number]: Follow-up Visit 1 (second visit) Title of study: The use of virtual weight management program for prescription of phentermine in patients with overweight or obesity compared to standard jjvd-hz-lduq visits. Supervisor Billposting: Stuart Baires MD Research Police Investigator: Reji Demarco AND Nneka Pantoja MD Office: [phone] OR [phone] Patient Randomized to: Usual care / Virtual Care Did patient attend dietitian appointment? Yes If yes, which diet are they on:diet choice weight mgmt: Ketogenic Did patient attend television mechanic appointment? {Y/N:63 Any changes to current regimen: No If yes, please elaborate: n/a Follow-up Visit Questions: 1. Is the patient continuing the weight loss medication as prescribed for study treatment? Yes If no, please provide reason and approximate discontinue date: 2. Since the last contact, did the patient experience any adverse events? No If yes, please describe event: 3. Has the patient been hospitalized since their last visit? No If yes, please describe event: 4. If the subject is female, have they reported they are currently ? No 5. Is the patient taking any medication for the purpose of weight loss other than the chronic weight loss medications allowed as part of the study? No If yes, provide medication and approximate start date: HISTORY OF PRESENT ILLNESS: Age: [age] year old Patient comes today for follow up of weight management. She is part of the phentermine clinical trial. She is doing quite well. Weight Curve Initial weight: 208 lbs Current weight: 201 lbs Weight loss: 7 lbs: 3.3% Weight Loss Medication: -- phentermine -- no sides. No palpitations Diet: -- 2 meals per day -- back off fruits. 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 We started patient back on metformin -- checks glucose once in a while 100-120s Pertinent Labs Hemoglobin A1C (%) Date Value 12/06/2017 5.0 HBA1C, Rodrick (%) Date Value 06/29/2008 5.1 Hemoglobin A1C (POCT) (%) Date Value 05/27/2020 6.6 ) REVIEW OF SYSTEMS: Review of Systems Constitutional: Negative for fever, night sweats and recent unintentional weight change. HENT: Negative for hearing loss. Eyes: Negative for visual disturbance. Respiratory: Negative for cough and difficulty breathing. Cardiovascular: Negative for chest pain, leg swelling and palpitations. Gastrointestinal: Negative for nausea and diarrhea. Musculoskeletal: Negative for myalgias and joint pain or stiffness. Skin: Negative for rash. Neurological: Negative for dizziness and headaches. MEDICATIONS: Current Outpatient Medications on File Prior to Visit Medication Sig - Phentermine HCl 37.5 mg tablet Take 1 tablet by mouth once daily for 28 days. BMI 35 - metFORMIN (GLUCOPHAGE) 500 mg tablet Take 1 tablet by mouth twice daily with meals. - potassium chloride (K-TAB) 10 mEq tablet Take 1 tablet by mouth twice daily. No current facility-administered medications on file prior to visit. SIGNIFICANT PAST MEDICAL HISTORY, SOCIAL HISTORY AND FAMILY HISTORY: PAST MEDICAL HISTORY Diagnosis Date - Excessive or frequent menstruation - PMH - PAST MEDICAL HISTORY OF pre diabetic FAMILY HISTORY Problem Relation Age of Onset - Breast Cancer Maternal Grandmother - Breast Can (more content not included)... Normal [facility] CNPFabiola 06-17-2020 CNPN Telephone (EWMLYN) TETE STEWARD ([id number]) 1970 F Date Time Provider Department 06/17/20 STUART BAIRES EWMLYN During your visit today, we recorded the following information about you: Fabi Harman Ma 06/17/2020 1:24 PM Signed Called spoke to patient appointment confirmed for 06/18. 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] 05/24/2017 Gallstones [K80.20] 11/23/2017 Obesity, Class II, BMI 35-39.9 [E66.9] 01/01/2018 Encounter Status:Closed by FABI HARMAN MA on 06/17/20 [facility] Comp Metabolic Panelon 06-15 Albumin [Mass/Vol] 4.5 g/dL Normal 3.9-4.9 [facility] Comment on above: Performed By: #### C MP, URIC #### [facility] [address] [place], [place] [address] ALP [Catalytic activity/Vol] 91 U/L Normal 34-123 [facility] Comment on above: Performed By: #### C MP, URIC #### [facility] [address], [place] [address] ALT [Catalytic activity/Vol] 25 U/L Normal 7-38 [facility] Comment on above: Performed By: #### C MP, URIC #### [facility] [address], [place] [address] Anion gap [Moles/Vol] 10 mmol/L Normal 9-18 [facility] Comment on above: Performed By: #### C MP, URIC #### [facility] [address] [place], [place] [address] AST [Catalytic activity/Vol] 22 U/L Normal 13-35 [facility] Comment on above: Performed By: #### C MP, URIC #### [facility] [address] [place] [address] Bilirubin [Mass/Vol] 0.4 mg/dL Normal 0.2-1.3 [facility] Comment on above: Performed By: #### C MP, URIC #### [facility] [address] [place], [place] [address] Calcium [Mass/Vol] 9.6 mg/dL Normal 8.5-10.2 [facility] Comment on above: Performed By: #### C MP, URIC #### [facility] [address] [place], [place] [address] Chloride [Moles/Vol] 100 mmol/L Normal 97-105 [facility] Comment on above: Performed By: #### C MP, URIC #### [facility] [address], [place] [address] CO2 [Moles/Vol] 26 mmol/L Normal 22-30 [facility] Comment on above: Performed By: #### C MP, URIC #### [facility] [address] [address] Creatinine [Mass/Vol] 0.68 mg/dL Normal 0.58-0.96 [facility] Comment on above: Performed By: #### C MP, URIC #### [facility] [address] [address] eGFR- Amer. >60 Normal [facility] Comment on above: Performed By: #### C MP, URIC #### [facility] [address] [place] [address] eGFR-All Other Races >60 Normal [facility] Comment on above: Result Comment: eGFR (Estimated GFR) Units of measure: mL/min/1.73 meters squared eGFR is derived from the reexpressed MDRD Study equation using the following parameters: serum creatinine, age, gender and race. The creatinine assay has been calibrated to be traceable to IDMS. An eGFR <60 mL/min/1.73m2 for >3 months is consistent with chronic kidney disease. Refer to KDOQI guidelines for clinical interpretation. In patients with unstable renal function, e.g. those with acute kidney injury, the eGFR may not accurately reflect actual GFR. Performed By: #### C MP, URIC #### [facility] [address] [address] Glucose [Mass/Vol] 133 mg/dL High 74-99 [facility] Comment on above: Result Comment: The [place] Diabetes Association (ADA) provides guidance for cutoff values for fasting glucose and random glucose. The ADA defines fasting as no caloric intake for at least 8 hours. Fasting plasma glucose results between 100 to 125 mg/dL indicate increased risk for diabetes (prediabetes). Fasting plasma glucose results greater than or equal to 126 mg/dL meet the criteria for diagnosis of diabetes. In the absence of unequivocal hyperglycemia, results should be confirmed by repeat testing. In a patient with classic symptoms of hyperglycemia or hyperglycemic crisis, random plasma glucose results greater than or equal to 200 mg/dL meet the criteria for diagnosis of diabetes. Reference: Standards of Medical Care in Diabetes 2016, [place] Diabetes Association. Diabetes Care. 2016.39(Suppl 1). Performed By: #### C MP, URIC #### [facility] [address] [id number] Potassium [Moles/Vol] 3.9 mmol/L Normal 3.7-5.1 [facility] Comment on above: Performed By: #### C MP, URIC #### [place] [address] Protein [Mass/Vol] 7.7 g/dL Normal 6.3-8.0 [facility] Comment on above: Performed By: #### C MP, URIC #### [place] [address] Sodium [Moles/Vol] 136 mmol/L Normal 136-144 [facility] Comment on above: Performed By: #### C MP, URIC #### [place] [address] Urea nitrogen [Mass/Vol] 12 mg/dL Normal 7-21 [facility] Comment on above: Performed By: #### C MP, URIC #### [place] [address] Uric Acidon 06-15-2020 Urate [Mass/Vol] 5.3 mg/dL Normal 2.5-6.6 [facility] Comment on above: Performed By: #### C MP, URIC #### [place] [address] CNPNon 06-03-2020 [facility] Telephone (ENDOMN) TETE STEWARD ([id number]) 1970 F Date Time Provider Department 06/03/20 STUART BAIRES During your visit today, we recorded the following information about you: Stuart Baires MD 06/03/2020 3:07 PM Addendum We will start keto diet. K prescribed Labs ordered ----- Message from Savanah Ta RD sent at 06/01/2020 5:06 PM EDT ----- Regarding: FYI patient to start Keto Diet Hi Dr. Baires, I spoke with this patient today. She has been doing a Keto diet on her own-sticking to 20 grams of carbohydrates per day, checking ketones. She would like to continue with a Keto diet. We discussed possibly doing Low Carb Mediterranean but she does not feel she is ready to introduce carbohydrates into her diet. She does have a history of gallstones in 2018. She did follow a keto diet after diagnosis with functional medicine without any issues. If she is cleared to start she will need a potassium supplement and standing labwork. She is also currently enrolled in the phentermine trial Thank you Allergies As of Date: 06/03/2020 (No Known Allergies) Date Reviewed: 05/27/2020 Reviewed by: Edilson Mchugh Ma - Fully Assessed Reason for Visit: Orders [681] Primary Visit Diagnosis:Obesity, Class II, BMI 35-39.9 [E66.9] Order(s):COMP METABOLIC PANEL [SQCMP] Order #: [id number] FUTURE URIC ACID BLOOD [SQURIC] Order #: [id number] FUTURE COMP METABOLIC PANEL [SQCMP] Order #: [id number] FUTURE URIC ACID BLOOD [SQURIC] Order #: [id number] FUTURE potassium chloride (K-TAB) 10 mEq tabletTake 1 tablet by mouth twice daily.Disp: 180 tabletRfl: 0 Prescriptions as of 06/03/2020 Sig: POTASSIUM CHLORIDE ER 10 MEQ * Take 1 tablet by mouth twice * PHENTERMINE 37.5 MG TABLET Take 1 tablet by mouth once d* METFORMIN 500 MG TABLET Take 1 tablet by mouth twice * Problem List As Of Date 06/03/2020 Noted Resolved Diabetes 1.5, 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 Encounter Status:Closed by STUART BAIRES on 06/03/20 Normal [facility] CNOVon 05-27-2020 CNOV Office Visit (ENDOMN ) TETE STEWARD ([id number]) 1970 F Date Time Provider Department 05/27/20 8:00 AM STUART BAIRES ENDOMN During your visit today, we recorded the following information about you: Pulse Blood pressure Weight 89/minute 125/94 94.4 kg Edilson Mchugh Ma 05/27/2020 7:46 AM Addendum Thank you for choosing the [facility] Department of Endocrinology, Diabetes and Metabolism. WEIGHT MANAGEMENT PROGRAM Thank you for seeing me in [facility]. -- please start phentermine 1/2 tablet per day for two weeks then go to the full tablet Please schedule your follow-up appointment: -- Call Center: [phone] or [phone] Please call this number to make your follow up appointment. -- Dietitian: [phone] Please call this number to make your appointment. You can be seen at [address], [place] or [facility] -- Circuit Tester Our team will contact you via [employer] with the next steps -- research coordinator number: [phone] To Cancel an appointment, please choose one of the following: - Call the Appointment Call Center at [phone] or [phone] - From [employer], Go to Appointments ? Cancel Appts FOR THE WEIGHT MANAGEMENT TEAM - instructions Use call center number to schedule follow up appointment for weight management when seeing patient virtually Instruct the patient to go to java front end web developer to schedule follow up appointment Alternatively send a message to [employer] to contact the patient and schedule appointment: [employer] APPT POOL ([phone]) Shared Medical Appointment: send a message directly to Radha or Alycia to schedule SMA Thank you for choosing the [facility] Department of Endocrinology, Diabetes and Metabolism. Did you know that you need to call 48 hours in advance of your scheduled visit, if you are unable to make your appointment? The Endocrinology and Metabolism [place] thanks you for your commitment, because patients not showing to their appointment results in a lost opportunity for patients to receive world class health care at the [facility]. To Cancel an appointment, please choose one of the following: - Call the Appointment Call Center at [phone] - From [employer], Go to Appointments ? Cancel Appts If cancelling, consider your need to reschedule to prevent further delays in your care. To Schedule an appointment, please choose one of the following: - Call the Appointment Call Center at [phone] - From [employer], Go to Appointments ? Request an Appt Stuart Baires MD 05/27/2020 8:52 AM Signed IRB #: [id number] Screening Visit Title of study: The use of a virtual weight management program for prescription of phentermine in patients with overweight or obesity compared to standard face-to face visits. Supervisor Billposting: Stuart Baires MD Research Police Investigator: Reji Demarco AND Nneka Pantoja Office: [phone] or [facility] Informed Consent Form, Version 1, Version Date 10-20-2019 The above mentioned patient was informed of the risks/benefits and alternatives to participation (not to participate) as outlined in the informed consent document and the patient voluntarily agrees to participate in the Study IRB # [id number]. The patient has read and verbalizes understanding of the consent document. All questions have been answered. The above mentioned patient voluntarily signed the informed consent document. All study procedures started after the above mentioned patient signed the Informed Consent document. The study was explained and reviewed at length with the patient. All risks, benefits, and alternatives of the study were explained and reviewed with the patient. Study related procedures and follow-up were discussed. The consent form was given to the patient to read. All of the patient's study related questions were answered. The patient expressed full understanding of the study, and stated they would like to participate. The patient and I both signed and dated the most recently approved consent form. A copy of the signed consent form was then given to the patient for their own records and reference. The original copy of the consent form will be kept on file. Study specific education was given. I provided the patient with all of my contact information should they have any other questions and/or concerns. Medical History / Concomitant Illness: Hypertension: No Dyslipidemia: Yes Diabetes: No Non-alcoholic Fatty Liver Disease: No Atherosclerotic Cardiovascular Disease: No Congestive Heart Failure: No Chronic Kidney Disease: No Obstructive Sleep Apnea: No Osteoarthritis: No Metabolic Syndrome: Yes Depression: No Anxiety: No PCOS Polycystic Ovary Syndrome): No Male Hypogonadism: No Urin (more content not included)... [facility] ([id number]) 1970 F Date Time Provider Department 05/12/20 REJI DEMARCO ([facility]) ENDOMN During your visit today, we recorded the following information about you: Reji Demarco 05/12/2020 11:03 AM Signed IRB #: [id number] Title of study: The use of virtual weight management program for prescription of phentermine in patients with overweight or obesity compared to standard jthp-mt-ulct visits. Supervisor Billposting: Stuart Baires MD Research Police Investigator: Reji Demarco Office: [phone] Patient had previously reached out via email from [employer] expressing interest in the study. Called mobile and discussed informed consent form and any concerns. Scheduled appointment for site of interest--[facility]. 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 Sadaf Neal MD Work Phone: [facility] 09-23-2024 10:51-0400 Body mass index (BMI) [Ratio] 28 kg/m2 Dr. Sadaf Neal MD Work Phone: [facility] 09-23-2024 10:51-0400 Body weight 74.[address] Sadaf Neal MD Work Phone: [facility] 09-23-2024 10:51-0400 Diastolic blood pressure 80 mm[Hg] Dr. Sadaf Neal MD Work Phone: [facility] 09-23-2024 10:51-0400 Systolic blood pressure 116 mm[Hg] Dr. Sadaf Neal MD Work Phone: [facility] 09-23-2024 07:59-0400 Body height 162.[address] Sadaf Neal MD Work Phone: [facility] 09-23-2024 07:59-0400 Body mass index (BMI) [Ratio] 27.9 kg/m2 Dr. Sadaf Neal MD Work Phone: [facility] 09-23-2024 07:59-0400 Body temperature 97.4 [degF] Dr. Sadaf Neal MD Work Phone: [facility] 09-23-2024 07:59-0400 Body weight 73.[address] Sadaf Neal MD Work Phone: [facility] 09-23-2024 07:59-0400 Diastolic blood pressure 74 mm[Hg] Dr. Sadaf Neal MD Work Phone: [facility] 09-23-2024 07:59-0400 Heart rate 79 /min Dr. Sadaf Neal MD Work Phone: [facility] 09-23-2024 07:59-0400 Respiratory rate 14 /min Dr. Sadaf Neal MD Work Phone: [facility] 09-23-2024 07:59-0400 SaO2% (BldA) [Mass fraction] 97 % Dr. Sadaf Neal MD Work Phone: [facility] 09-23-2024 07:59-0400 Systolic blood pressure 118 mm[Hg] Dr. Sadaf Neal MD Work Phone: [facility] 01-10-2023 08:04-0400 Body height 162.[address] Sadaf Neal Work Phone: [facility] 01-10-2023 08:03-0400 Body mass index (BMI) [Ratio] 26.6 kg/m2 Dr. Sadaf Neal Work Phone: [facility] 01-10-2023 08:03-0400 Body weight 70.[address] Sadaf Neal Work Phone: [facility] 01-10-2023 08:03-0400 Diastolic blood pressure 79 mm[Hg] Dr. Sadaf Neal Work Phone: [facility] 01-10-2023 08:03-0400 Systolic blood pressure 110 mm[Hg] Dr. Sadaf Neal Work Phone: [facility] 05-23-2022 13:39-0500 Body height 162.[address] Aroldo Hua Work Phone: [facility] 05-23-2022 13:39-0500 Body mass index (BMI) [Ratio] 34.8 kg/m2 Dr. Aroldo Hua Work Phone: [facility] 05-23-2022 13:39-0500 Body temperature 97.7 [degF] Dr. Aroldo Hua Work Phone: [facility] 05-23-2022 13:39-0500 Body weight 92.[address] Aroldo Hua Work Phone: [facility] 05-23-2022 13:39-0500 Diastolic blood pressure 92 mm[Hg] Dr. Aroldo Hua Work Phone: [facility] 05-23-2022 13:39-0500 Heart rate 87 /min Dr. Aroldo Hua Work Phone: [facility] 05-23-2022 13:39-0500 Respiratory rate 16 /min Dr. Aroldo Hua Work Phone: [facility] 05-23-2022 13:39-0500 SaO2% (BldA) [Mass fraction] 98 % Dr. Aroldo Hua Work Phone: [facility] 05-23-2022 13:39-0500 Systolic blood pressure 136 mm[Hg] Dr. Aroldo Hua Work Phone: [facility] Encounters Encounter Date Encounter Type Care Provider Facility Start: 11-07-2024 ambulatory Sadaf Neal Facility :[facility] Start: 10-10-2024 End: 10-10-[address] Cong Goyal MD -[facility] Work Phone: Start: 10-10-2024 End: 10-10-[address] Sadaf Neal MD Work Phone: -[facility] Start: 09-26-2024 End: 09-26-[address] Sadaf Neal MD Work Phone: -Ultrasound [facility] Start: 09-26-2024 End: 09-26-2024 Patient encounter procedure Gabriela Prakashs SLOOP CAPTAIN-C -Ultrasound [facility] Work Phone: Start: 09-26-2024 End: 09-26-2024 ambulatory Gabriela Prakashs SLOOP CAPTAIN Facility:[facility] Start: 09-23-2024 End: 09-23-[address] Sadaf Neal MD Work Phone: -Laboratory Specimen Start: 09-23-2024 End: 09-23-2024 Patient encounter procedure Gabriela Davis SLOOP CAPTAIN-C -Laboratory Specimen Work Phone: Start: 09-23-2024 End: 09-23-2024 Patient encounter procedure Gabrielabritton Prakashs SLOOP CAPTAIN-C -[facility] Work Phone: Start: 09-23-2024 End: 09-23-[address] Sadaf Neal MD Work Phone: -[facility] Start: 09-23-2024 End: 09-23-[address] Sadaf Neal MD -[facility] Work Phone: Start: 09-23-2024 End: 09-23-[address] Sadaf Neal MD Work Phone: -[facility] Start: 09-23-2024 End: 09-23-2024 ambulatory Gabriela Davis SLOOP CAPTAIN Facility:[facility] Start: 08-19-2024 ambulatory Gabriela Rochester SLOOP CAPTAIN Facil ity:[facility] Start: 08-19-2024 Encounter for gynecological examination (general) (routine) without abnormal findings Jennifer Lopez [facility] Start: 02-21-2024 End: 02-22-2024 ambulatory Sadaf Neal Facility:[facility] Start: 02-21-2024 End: 02-21-2024 ambulatory Sadaf Neal Facility:[facility] Start: 01-29-2024 End: 01-29-2024 ambulatory Sadafcristobal Christielay Facility:[facility] Start: 01-29-2024 End: 01-29-2024 ambulatory Sadaf Neal Facility:[facility] Start: 01-12-2023 End: 01-12-[address] Sadaf Neal Work Phone: [facility] Work Phone: Start: 01-12-2023 End: 01-12-[address] Sadaf Nela Work Phone: [facility] Work Phone: Start: 01-10-2023 End: 01-10-[address] Sadaf Neal Work Phone: [facility] Work Phone: Start: 01-10-2023 End: 01-10-[address] Sadaf Neal Work Phone: [facility]-Laboratory, Specimen Work Phone: Start: 01-10-2023 End: 01-10-[address] Sadaf Neal Work Phone: [facility] Work Phone: Start: 06-02-2022 End: 06-02-[address] Aroldo Hua Work Phone: [facility] Work Phone: Start: 06-02-2022 End: 06-02-[address] Aroldo Hua Work Phone: [facility] Start: 05-26-2022 End: 05-26-[address] Aroldo Hua Work Phone: [facility] Work Phone: Start: 05-26-2022 End: 05-26-[address] Aroldo Hua Work Phone: [facility] Start: 05-23-2022 End: 05-23-[address] Aroldo Hua Work Phone: [facility] Internal Medicine Procedures Date Procedure Procedure Detail Performing Clinician Start: 09-26-[address] Sadaf Neal MD Work Phone: Start: 01-12-[address] Sadaf Neal Work Phone: Start: 06-02-2022 Screening mammography Paige Hua Work Phone: Plan of Treatment Date Care Activity Detail Author Start: 01-10-2023 Liquid based cervica l cytology screening [facility] MG Breast - bilateral Screening [facility] Path report.final Dx Spec [facility] Payers Date Payer Category Payer Self-pay [id number] 2023 Private Health Insurance [id number] Unknown [id number] 2.16.8 [id number] Unknown [id number] 2.16.8 [id number] Unknown [id number] 2.16.8 [id number] Unknown [id number] 2.16.8 [id number] Unknown [id number] 2.16.8 [id number] Unknown [id number] 2.16.8 [id number] Unknown [id number] 2.16.8 [id number] Unknown [id number] 2.16.8 [id number] Unknown [id number] 2.16.8 [id number] Unknown [id number] 2.16.8 [id number] Unknown [id number] 2.16.8 [id number] Unknown [id number] 2.16.8 [id number] Social History Date Type Detail Facility Start: 05-23-2022 End: 01-10-2023 Tobacco smoking status OHIS Unknown if ever smoked [facility] Start: 1970 Sex Assigned At Female [facility] Start: 03-26-2023 Tobacco smoking stat us NHIS Never smoked tobacco (finding) [facility] Clinical Notes 05-27-2020 to 10-10-2024 Note Date & Type Note Facility 10-10-2024 Progress note [facility] 10-10-2024 Progress note Note Date/Time October 10, 2024 9:23am [facility] [address], [address] [place] [address] OFFICE VISIT Date of Service: 10/10/24 MR#: [id number] Acct: [id number] Name: TETE STEWARD Rep #: [id number] : 1970 Provider: Dr. Jong Goyal MD Age/Sex: 53/F Location: [facility] Status: Signed Intake Vital Signs 02/21/24 08:50 09/23/24 10:56 Height 5 ft 4 in 5 ft 4 in Intake Visit Reasons: PANNICULECTOMY CONSULT Chief Complaint: Panniculectomy consult Is patient in pain?: No Allergies No Known Allergies Allergy (Verified 10/10/24 08:48) Medications ?Medication ?Instructions ?Recorded ?Confirmed ?Type tirzepatide 5 mg/0.5 mL 5 mg (0.5 mL) subcut QWEEK # 2 mL 09/23/24 10/10/24 Rx subcutaneous pen injector [facility] Medical History Essential hypertension Bowel wall thickening Gallstones CKD (chronic kidney disease) stage 2, GFR 60-89 ml/min Type 2 diabetes mellitus Diarrhea Hemorrhoids Acid reflux Surgical History H/O tubal ligation History of dilation and curettage S/P tonsillectomy History of appendectomy Family History Father Diabetes Heart disease Hypertension High cholesterol Thyroid disorder Brother Diabetes Hypertension Grandmother Breast cancer Aunt Breast cancer x2 plus their 2 daughters Mother Hypertension Social History household members: spouse current occupational status: employed 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 She has a past medical history of borderline diabetes mellitus, currently well-controlled with a hemoglobin A1c of 4.9, and a history of obesity, from which she has significantly reduced her weight. The patient is concerned about the physical discomfort and aesthetic effects of the remaining abdominal skin, which protrudes approximately 3 cm below the pubic symphysis after weight loss. This condition hinders her physical activity and causes recurrent irritation below the skin fold. In addition, the patient has a stable subcostal transverse incision from prior cyst removal without complications. She has been advised that the excess skin may complicate any future surgical interventions. The patient expresses satisfaction with her current weight and wishes to explore options to address the abdominal skin issues, potentially through surgical intervention. Patient has a history of approximately 100 pounds weight loss (250 and now 150/160). She has been oscillating around 160 for approximately 3 months. She was approximately 200 pounds in March 2024 and went back on [facility] losing approximately 50 pounds in 3 months. Her BMI is currently 26 and she would like to stay around the same weight. No personal or family history of bleeding or clotting problems. Patient has had a right upper quadrant cyst removed by home extension agent. She reports rashes and pain with exercising along the intertriginous folds of her abdominal pannus/apron. Patient had 1 child via vaginal . She was another time. She is not a smoker and does not use nicotine products ROS: - Skin: Reports irritation and rash beneath abdominal panniculus - Endocrine: Denies ongoing weight fluctuations Attestation: Documentation on this patient encounter was supported using ambient scribe technology/ voice AI technology. The patient consented to recording for the purpose of documenting the encounter. Provider reviewed content of the generatednote prior to signature. ROS General General: Yes good health; No fatigue, fever(s) or weight loss HENMT HENMT: No rhinitis, sore throat/mouth sore, nasal congestion, contacts or glaucoma Endo Endocrine: No thyroid disease, polydipsia, heat intolerance, cold intolerance, hepatitis or excessive urine Skin Skin: No Bleeding, bruising, changing moles or suspicious lesion Musc Musculoskeletal: No joint pain, joint stiffness, muscle weakness, back pain, osteoarthritis or Muscle aches/ myalgia Neuro Neurological: No headache(s), No lightheadedness and No numbness Cardio Cardiovascular: No chest pain, pacemaker, fatigue or shortness of breat with exertion Psych Psychiatric: No depression, claustrophobia or anxiety Resp Respiratory: No spitting up, shortness of breath, sleep apnea, asthma, emphysema, TB, Cough or Smoker Gastro Gastrointestinal: No diarrhea, constipation, blood in stool, nausea, vomiting orabdominal bloating Jah Hematologic: No anemia, No bleeding and No abnormal bleeding Genitourinary: No urinary frequency, blood in urine or incontinence Exam Details - Abdominal- Right upper quadrant subcostal transverse incision noted; excess abdominal skin extends approx. 3 cm below pubic symphysis; no significant diastasis recti observed. No hernias. - Skin- Chronic irritation noted beneath abdominal panniculus; no conspicuous scars apart from noted incision Photos obtained Coding Level of Care Code Off vis,new,level 3 Diagnoses Weight loss, intentional Panniculitis M79.3 Assessment and Plan (No Qualifiers) Assessment and Plan (1) Weight loss, intentional: Status: Acute (2) Panniculitis: Status: Acute Plan Assessment and Plan 53-year-old female with a history of obesity and borderline diabetes mellitus presenting for evaluation of post-weight loss abdominal skin laxity. The patient, who has lost over 80 pounds, maintains control over her diabetes, and desires to address discomfort from excess skin necessitating evaluation for potential surgical correction. 1. Borderline Diabetes Mellitus Recommend continuation of current regimen and follow-up for HbA1c monitoring to ensure no deviation from managed levels. 2. Obesity (Resolved) The patient has successfully reduced her weight from 248 pounds to 161 pounds, achieving a BMI of 26.8, and is encouraged to maintain her current weight through continued lifestyle modifications. No further interventions are requiredat this time, but regular follow-up to monitor weight and overall health is advised. 3. Abdominal Skin Laxity Plan includes submitting necessary documentation, especially photographs highlighting overhang. Discussed potential plan of care with the patient, including post-operative expectations and impacts. Advised reassessment of weight stability in a few months before surgical intervention. 4. Subcostal Transverse Incision From Cyst Removal Ongoing monitoring of the incision site as needed to ensure no complications arise with potential future procedures. I talked to the patient extensively about the risks of surgery, including bleeding, infection, damage to surrounding structures, asymmetries (discussed existing asymmetries and likelihood of asymmetries postoperatively as well as skin laxity postoperatively despite her best efforts), poor scaring, surgical site dehiscence and wound formation, need for wound care, need for repeat operations, failure to obtain the desired result, DVT/PE, and the risks of anesthesia including , including stroke (from low blood pressure/ischemia or clot). The benefits and alternatives of this surgery were also discussed. All of their questions were answered, and they agreed to proceed with surgery. Plan will be to reassess in 3 months to check on status of weight loss/weight stability. I talked the patient about being stable for 6 months and her weight before any body contouring. She was in agreement CPT codes for insurance prior authorization are as follows: [id number] 10/10/24 0923 <Electronically signed by Cong Goyal MD> Date _ Cong Goyal MD Cosigner Signature: Date (if applicable) CC: ~ [place] [employer] Work Phone: 1(807) 793-491507-11-2025 Radiology Diagnostic study note [facility] Imaging Services [address] [place] [address] Transvaginal Non- MR#: [id number] Acct: [id number] Name: TETE STEWARD Rep #: [id number] : 1970 F 53 From: Fanny Adames MD PCP: Dr. Sadaf Neal MD Status: REG CLI Study:Transvaginal Non- Date of Exam: 09/26/24 Exam# [id number] Ordering Dr: Gabriela Davis SLOOP CAPTAIN SLOOP CAPTAIN-C PROCEDURE: TRANSVAGINAL NON- 09/26/2024 REASON FOR EXAM: AUB TECHNIQUE: TRANSVAGINAL NON- with grayscale and color Doppler COMPARISON: Pelvic ultrasound 01/12/2023 FINDINGS: Measurements: Uterus: 7.3 x 2.5 x 4.0 cm for volume of 37.3 mL Endometrial Thickness: 3 mm Right Ovary: 2.1 x 1.1 x 1.9 cm for volume of 2.5 mL . Left Ovary: 1.7 x 1.3 x 1.3 cm for volume of 1.5 mL. Uterus: Anteverted. Normal contour and myometrial echotexture. Nabothian cysts at the cervix. Endometrium: Normal echotexture. Right ovary: Normal size and echotexture. Left ovary: Normal size and echotexture. Other adnexal findings: None. Cul-de-sac: No free intraperitoneal fluid identified. Color Doppler: Normal color flow doppler signal at both ovaries. US/Transvaginal Non- IMPRESSION: Unremarkable pelvic ultrasound. The endometrial stripe measures 3 mm in thickness, similar to ultrasound in 2022. Reading Location: [id number] CC: NILO Davis; Dr. Sadaf Neal MD ~ Tooling Specialist: Signed [facility]07-08-2025 Evaluation note* Diagnosis Onset Date Resolution Status Admit Date Controlled type 2 diabetes mellitus acute September 23, 2024 7 :43am Overweight (BMI 25.0-29.9) noneactiv e September 23, 2024 7:43am [facility] Work Phone: 1(257) 951-465207-08-2025 Evaluation note* Diagnosis Onset Date Resolution Status Admit Date Controlled type 2 diabetes mellitus acute September 23, 2024 7 :43am Overweight (BMI 25.0-29.9) noneactiv e September 23, 2024 7:43am Abnormal uterine bleeding acute September 23, 2024 10:48am [facility] Work Phone: 1(831) 820-256107-08-2025 Evaluation note* Diagnosis Onset Date Resolution Status Admit Date Controlled type 2 diabetes mellitus acute September 23, 2024 7 :43am Overweight (BMI 25.0-29.9) noneactiv e September 23, 2024 7:43am Abnormal uterine bleeding acute September 23, 2024 10:48am Panniculitis acute October 10, 2 025 8:27am Weight loss, intentional acute October 10, 2024 8:27am [facility] Work Phone: 1(590) 273-830710-25-2023 NotePap Smear QC ReviewOct2022 4:48pmComment.Codi Patel, Supervisory Wood Heel Back 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 Author Type: Registered Dietitian Type: Progress Notes Filed: 06/29/2020 12:16 PM Note Text: [facility] Nutritional Assessment Patient states reason for visit: Weight Management Follow Up virtual DEMOGRAPHICS: NUTRITION THERAPY Co-Morbidities: PAST MEDICAL HISTORY Diagnosis Date - Excessive or frequent menstruation - PMH - PAST MEDICAL HISTORY OF pre diabetic Labs(06/15): CMP glucose-133 all other labs WNL, Uric Acid WNL A1C (05/27)6.6 -has cravings for fruits -appetite not controlled-doesn't think she is getting enough fat -has had some meals where she had increase CCHO foods-pizza one week but kept it to 2 slices/one meal -lost 8lbs since last visit -drinks protein shakes to help with sweet cravings Diet History: Breakfast: preimer protein Snack: Lunch:4-6 ounces meat- lean meat, add green beans, broccoli, cauliflower, ground burger with tomato sauce, peppers, Snack: Dinner:sour cream with cheese and broccoli, meat Snack Fluids Medications: Current Outpatient Medications Medication Sig - Phentermine HCl 37.5 mg tablet Take 1 tablet by mouth once daily for 28 days. BMI 34.47 - potassium chloride (K-TAB) 10 mEq tablet Take 1 tablet by mouth twice daily. - metFORMIN (GLUCOPHAGE) 500 mg tablet Take 1 tablet by mouth twice daily with meals. No current facility-administered medications for this visit. ANTHROPOMETRICS Height: Last 1 Encounter Ht Readings: Date: Ht: 12/31/2017 162.6 cm (5' 4) Current weight: Last 1 Encounter Wt Readings: Date: Wt: 05/27/2020 94.4 kg (208 lb 1.6 oz) 06/18/2020 91.1 kg (200 lb 12.8 oz) 8 lbs weight loss: 3.8% BMI 34.4 NUTRITION ASSESSMENT: Nutrition Diagnosis: Has not changed since previous diagnosis Nutrition Prescription: Calories Needed for Current Weight: Resting Metabolic Rate: 1514 Calories for Weight Loss: 1316 Nutrition Intervention: continue following Keto Diet -adding more fat to diet-healthy fats -reviewed adding snacks throughout the day to help with appetite -recommended adding small amount of fruit as desired, reviewed portion sizes, recommended berries Education Materials: low carb snacks, keto fat bomb recipes Nutrition Monitoring AND Evaluation: Dietitian Goals: Weight Reduction of 5-10% within 6 months Criteria: Weight Patient Centered Goals: Patient Stated Goals at today's visit: 1. Small amounts of fruit- berries 3: I have a plan to start 2. In crease healthy fats to help with appetite 3: I have a plan to start Need for Follow up: monthly Topics for Future Session: to be determined Referred/Supervised by: self Consult Billing Type/Increments: Initial Assessment/15 minutes, 2 increment(s), 30 minutes My final report will be communicated back to the requesting physician by way of shared medical record. Signed by: Savanah Ta [facility]04-02-2021 NoteHNO ID: [id number] Author: Stuart Baires Service: ? Author Type: Physician Type: Progress Notes Filed: 06/18/2020 9:26 AM Note Text: [facility] RETURN VISIT IRB #: [id number]: Follow-up Visit 1 (second visit) Title of study: The use of virtual weight management program for prescription of phentermine in patients with overweight or obesity compared to standard nxlc-ty-matc visits. Supervisor Billposting: Stuart Baires MD Research Police Investigator: Reji Demarco AND Nneka Pantoja MD Office: [phone] OR [phone] Patient Randomized to: Usual care / Virtual Care Did patient attend dietitian appointment? Yes If yes, which diet are they on:diet choice weight mgmt: Ketogenic Did patient attend television mechanic appointment? {Y/N:63 Any changes to current regimen: No If yes, please elaborate: n/a Follow-up Visit Questions: 1. Is the patient continuing the weight loss medication as prescribed for study treatment? Yes If no, please provide reason and approximate discontinue date: 2. Since the last contact, did the patient experience any adverse events? No If yes, please describe event: 3. Has the patient been hospitalized since their last visit? No If yes, please describe event: 4. If the subject is female, have they reported they are currently ? No 5. Is the patient taking any medication for the purpose of weight loss other than the chronic weight loss medications allowed as part of the study? No If yes, provide medication and approximate start date: HISTORY OF PRESENT ILLNESS: Age: [age] year old Patient comes today for follow up of weight management. She is part of the phentermine clinical trial. She is doing quite well. Weight Curve Initial weight: 208 lbs Current weight: 201 lbs Weight loss: 7 lbs: 3.3% Weight Loss Medication: -- phentermine -- no sides. No palpitations Diet: -- 2 meals per day -- back off fruits. 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 We started patient back on metformin -- checks glucose once in a while 100-120s Pertinent Labs Hemoglobin A1C (%) Date Value 12/06/2017 5.0 HBA1C, Rodrick (%) Date Value 06/29/2008 5.1 Hemoglobin A1C (POCT) (%) Date Value 05/27/2020 6.6 ) REVIEW OF SYSTEMS: Review of Systems Constitutional: Negative for fever, night sweats and recent unintentional weight change. HENT: Negative for hearing loss. Eyes: Negative for visual disturbance. Respiratory: Negative for cough and difficulty breathing. Cardiovascular: Negative for chest pain, leg swelling and palpitations. Gastrointestinal: Negative for nausea and diarrhea. Musculoskeletal: Negative for myalgias and joint pain or stiffness. Skin: Negative for rash. Neurological: Negative for dizziness and headaches. MEDICATIONS: Current Outpatient Medications on File Prior to Visit Medication Sig - Phentermine HCl 37.5 mg tablet Take 1 tablet by mouth once daily for 28 days. BMI 35 - metFORMIN (GLUCOPHAGE) 500 mg tablet Take 1 tablet by mouth twice daily with meals. - potassium chloride (K-TAB) 10 mEq tablet Take 1 tablet by mouth twice daily. No current facility-administered medications on file prior to visit. SIGNIFICANT PAST MEDICAL HISTORY, SOCIAL HISTORY AND FAMILY HISTORY: PAST MEDICAL HISTORY Diagnosis Date - Excessive or frequent menstruation - PMH - PAST MEDICAL HISTORY OF pre diabetic FAMILY HISTORY Problem Relation Age of Onset - Breast Cancer Maternal Grandmother - Breast Cancer Maternal Aunt - Hypertension Father - Coronary Artery Disease Father passed from an PA - Hypertension Brother - Diabetes Father - Diabetes Brother Social History Tobacco Use - Smoking status: Never Smoker - Smokeless tobacco: Never Used Substance Use Topics - Alcohol use: No - Drug use: No PHYSICAL EXAM: Tete Steward is a 49 year old year old female who looks her stated age. Vital Signs BP 132/89 Pulse 81 Wt 91.1 kg (200 lb 12.8 oz) LMP 06/28/2008 BMI 34.47 kg/m? General: no acute distress Eyes: extra ocular movements intact, no redness ENT/Neck: thyroid is palpable, normal size, no lymphadenopathy Psychiatric: normal affect, humor is preserved Neuro: grossly non focal, AOx3 PERTINENT LABORATORY AND IMAGING:All pertinent laboratory results were reviewed. Please see HPI for further details. IMPRESSION/PLAN: #1. Abnormal weight gain - ICD9: 783.1, ICD10: R63.5 (primary diagnosis) #2. Obesity, Class I, BMI 30-34.9 - ICD9: 278.00, ICD10: E66.9 #3. Controlled type 2 diabetes mellitus without complication, without long-term current use of insulin (HCC) - ICD9: 250.00, ICD10: E11.9 Patient comes today for w (more content not included)...[facility]03-16-2021 NoteHNO ID: [id number] Author: Savanah Ta RD Service: ? Author Type: Registered Dietitian Type: Progress Notes Filed: 06/01/2020 5:28 PM Note Text: [facility] Nutritional Assessment Patient states reason for visit: Weight Management Initial virtual DEMOGRAPHICS: NUTRITION THERAPY Co-Morbidities: PAST MEDICAL HISTORY Diagnosis Date - Excessive or frequent menstruation - PMH - PAST MEDICAL HISTORY OF pre diabetic Previous Weight Loss Attempts:PSMF at [facility] Activity: Do you do a regular exercise No Symptoms: Patient's symptoms are as follows: Weight Concerns: failure to lose weight How many hours of sleep on average? Did not report -previously has tried a keto diet-previsouly with the [facility] -seems to plateau when she tries to lose weight on her own -150's until age 23 -lettuce upsets her stomach-avoids carrots/peas corn beans -uses carb manager procurement patricia-20 grams per day -keto diet in the past without issues -considered doing low carb mediterranean but pt doesn't feel ready to introduce starches or starchy vegetables to diet, also not ready to introduce fruits Diet History: Breakfast: Snack: Lunch:12:30pm: ground beef with tbsp of sour cream, cheese and broccoli- baked Snack: Dinner:7pm: Chicken ,[place], salmo, ground beef, broccoli, cauliflower Snack Fluids water, un-sweet tea Which meals do you tend to skip? None Food Dislikes: none stated Who Cooks: Self Who Shops: Self Allergies: No Food Allergy Medications: Current Outpatient Medications Medication Sig - Phentermine HCl 37.5 mg tablet Take 1 tablet by mouth once daily for 28 days. BMI 35 - metFORMIN (GLUCOPHAGE) 500 mg tablet Take 1 tablet by mouth twice daily with meals. No current facility-administered medications for this visit. ANTHROPOMETRICS Height: Last 1 Encounter Ht Readings: Date: Ht: 12/31/2017 162.6 cm (5' 4) Current weight: Last 1 Encounter Wt Readings: Date: Wt: 05/27/2020 94.4 kg (208 lb 1.6 oz) BMI 35.7 READINESS TO LEARN Cognitive ability: Alert and oriented Motivation to learn: Interested Family support: Unable to assess - Family not present Instruction provided to: Patient Patient learns best by: Written Instruction - Hand-outs Verbal Instruction Factors affecting learning: None Physical limitations affecting learning: None Stage of Change: Action NUTRITION ASSESSMENT: Nutrition Diagnosis: Overweight Obsesity, related to; excess energy intake and physical inactivity, as evidenced by BMI above normative standard for age and gender Nutrition Prescription: Calories Needed for Current Weight: Resting Metabolic Rate: 1547 Calories for Weight Loss: 1356 kcal Nutrition Intervention: I provided the patient with the ketogenic book and dietary guidelines which we discussed in length. I discussed the importance of choosing low carb vegetables, proteins, and fats at meals/snacks and emphasized eating the amount of protein recommended daily. The meal plan provides 12 ounces protein per day Breakfast (3 oz protein): Snack (1oz protein): Lunch (4 oz protein): Snack (1 oz protein): Dinner (3 oz protein): Snack ( oz protein): Encouraged at least 2 vegetable servings per day from provided list/materials. Encouraged eating plant based fats such as nuts/seeds/olives/olive oil and avocado until full/satisfied. Introduced concepts of mindful eating including the hunger/fullness scale. Encouraged patient to drink 64 oz. Fluids per day with <32 oz as diet beverages. Discussed importance of behavioral modifications, dining out, and traveling. We reviewed dietary supplements such as magnesium, potassium, calcium, and multivitamin as well as electrolyte beverages. Introduced patient to time frame for ketogenic meal plan (individualized, but often 6 months to 1 year), re-introduction of carbs stage of meal plan, and importance of adding fat until satisfied/full. Patient to get required lab tests completed on an ongoing basis. Patient to take required supplements of KDur (Potassium), Calcium, Magnesium, Multivitamin and Salt per PSMF/Keto protocol guidelines. Education Materials: Ketogenic Meal Plan Guidelines Book Eating Aware - food log /diary Comments: Education Materials: Nutrition Monitoring AND Evaluation: Dietitian Goals: Weight Reduction of 5-10% within 6 months Criteria: Weight Patient Centered Goals: Patient Stated Goals at today's visit: 1. Follow my meal plan 3: I have a plan to start 2. Journal what I am eating (or use MyFitnessPal or Lose It for online tracking 3: I have a plan to start Need for Follow up: 5 weeks Topics for Future Session: to be determined Referred/Supervised by: Dr. Baires/ Consult Billing Type/Increments: Initial Assessment/15 minutes, 3ncrement(s), 45 minutes My final report will be communicated (more content not included)...[facility]03-11-2021 NoteHNO ID: [id number] Author: Stuart Baires Service: ? Author Type: Physician Type: Progress Notes Filed: 05/27/2020 8:52 AM Note Text: IRB #: [id number] Screening Visit Title of study: The use of a virtual weight management program for prescription of phentermine in patients with overweight or obesity compared to standard face-to face visits. Supervisor Billposting: Stuart Baires MD Research Police Investigator: Reji Demarco AND Nneka Pantoja Office: [phone] or [facility] Informed Consent Form, Version 1, Version Date 10-20-2019 The above mentioned patient was informed of the risks/benefits and alternatives to participation (not to participate) as outlined in the informed consent document and the patient voluntarily agrees to participate in the Study IRB # [id number]. The patient has read and verbalizes understanding of the consent document. All questions have been answered. The above mentioned patient voluntarily signed the informed consent document. All study procedures started after the above mentioned patient signed the Informed Consent document. The study was explained and reviewed at length with the patient. All risks, benefits, and alternatives of the study were explained and reviewed with the patient. Study related procedures and follow-up were discussed. The consent form was given to the patient to read. All of the patient's study related questions were answered. The patient expressed full understanding of the study, and stated they would like to participate. The patient and I both signed and dated the most recently approved consent form. A copy of the signed consent form was then given to the patient for their own records and reference. The original copy of the consent form will be kept on file. Study specific education was given. I provided the patient with all of my contact information should they have any other questions and/or concerns. Medical History / Concomitant Illness: Hypertension: No Dyslipidemia: Yes Diabetes: No Non-alcoholic Fatty Liver Disease: No Atherosclerotic Cardiovascular Disease: No Congestive Heart Failure: No Chronic Kidney Disease: No Obstructive Sleep Apnea: No Osteoarthritis: No Metabolic Syndrome: Yes Depression: No Anxiety: No PCOS Polycystic Ovary Syndrome): No Male Hypogonadism: No Urinary Incontinence: No GERD (Gastroesophageal reflux disease): No Exclusion Criteria: 1. Does the patient have contraindication for the use of phentermine? No 2. If the patient is a female, is she , breast-feeding OR intends to become OR is of child-bearing potential OR is not using adequate contraceptive methods. NA 3. Did the patient participate in another clinical trial within 30 days prior to screening? No 4. Does the patient have history of CVD including uncontrolled hypertension or history of arrhythmias? No 5. Has the patient had treatment with any medication with the intention of weight loss within 180 days before screening? No 6. Has the patient used Topiramate within 180 days before screening? No 7. Does the patient have history of bariatric surgery or use of minimally-invasive weight loss devices? No Randomization: Usual care If randomized to Virtual Visit: - was the patient given a weight scale and blood pressure monitoring device? No - submit order: [facility] [[id number]) Order [id number] not applicable Referrals: - Dietitian Yes - tinware lithograph press operator Yes [facility] CONSULT - NEW VISIT REASON OF VISIT: weight management/obesity and management of its comorbidities REFERRING PHYSICIAN: self-referral Consultation requested for an opinion regarding @PATIENT@, and my final recommendations will be communicated back to the requesting physician by way of shared medical record or letter via [place] mail. HISTORY OF PRESENT ILLNESS: Age: [age] year old Patient comes today for evaluation and weight management. WEIGHT HISTORY: Adult years: early adult years 120-150s lbs. After tubal ligation started gaining weight - 180 lbs - she was 23 yrs old Progressive gained weight. Over the last few years struggle to lose weight. But not gaining weight Previous attempt for weight loss: tried phentermine in the past (minimal weight loss but not for a while). Tried keto diet - blood sugars improved. 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 (more content not included)...[facility] Diagnosis Onset Date Resolution Status Essential hypertension acute Uncontrolled type II diabetes mellitus acute Immunization declined noneac tive Establishing care with new doctor, encounter for noneactive Right foot pain noneactive Screening for breast cancer noneactive GERD (gastroesophageal reflux disease) noneactive [facility] Work Phone: Evaluation note* Diagnosis Onset Date Resolution Status Abnormal uterine bleeding ac squaxin Encounter for routine gynecological examination noneactive [facility] Work Phone: Evaluation note* Diagnosis Onset Date Resolution Status Admit Date Controlled type 2 diabetes mellitus acute September 23, 2024 7 :43am Obesity (BMI 30.0-34.9) noneactive J diego 2024 7:43am [facility] Work Phone: Reason for referral (narrative)No reason for referral information availableL[facility] Work Phone: Summary Purpose Family History No Family History Records Found Relationship Condition Age at Onset Recorded Date/T argenis father Diabetes mellitus Unknown Cardiac disease Unknown Hypertension Unknown High blood cholesterol Unknown Disorder of thyroid Unknown brother Diabetes mellitus Unknown grandmother Malignant neoplasm of breast Unknown aunt Malignant neoplasm of breast Unknown mother Hypertension Unknown Advance Directives No Advanced Directives Records Found Advance Directive Response Recorded Date/ Time Living Will No May 09, 2 023 3:20pm Power of Regional Forester No May 09, 2022 3:20pm Chief Complaint and Reason for Visit 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 Reason for Visit Essential hypertensi on Uncontrolled type II diabetes mellitus Immunization declined Establishing care with new doctor, encounter for Right foot pain Screening for breast cancer GERD (gastroesophageal reflux disease) 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 SCREENING Reason for Visit Essential hypertensi on Uncontrolled type II diabetes mellitus Immunization declined Establishing care with new doctor, encounter for Right foot pain Screening for breast cancer GERD (gastroesophageal reflux disease) Chief Complaint 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 Abnormal uterine and vaginal bleeding, unspecified Reason for Visit Abnormal uterine ble eding Encounter for routine gynecological examination Chief Complaint Admit Date MED FU September 23, 2024 7:43a m Reason for Visit Admit Date Controlled type 2 diabetes mellitus September 23, 2024 7:43am Obesity (BMI 30.0-34.9) September 23, 2024 7 :43am Chief Complaint Admit Date MED FU September 23, 2024 7:43a m EMB *abdoulaye from 08/19September 23, 2024 10:48 am Reason for Visit Admit Date Controlled type 2 diabetes mellitus September 23, 2024 7:43am Overweight (BMI 25.0-29.9) September 23 7:43am Chief Complaint Admit Date MED FU September 23, 2024 7:43a m EMB *abdoulaye from 08/19September 23, 2024 10:48 am AUB September 26, 2024 3:12 pm Reason for Visit Admit Date Controlled type 2 diabetes mellitus September 23, 2024 7:43am Overweight (BMI 25.0-29.9) September 23 7:43am Abnormal uterine bleeding September 23, 2024 10:48am Chief Complaint Admit Date MED FU September 23, 2024 7:43a m EMB *abdoulaye from 08/19September 23, 2024 10:48 am AUB September 26, 2024 3:12 pm PANNICULECTOMY CONSULT October 10, 2024 8 :27am Reason for Visit Admit Date Controlled type 2 diabetes mellitus September 23, 2024 7:43am Overweight (BMI 25.0-29.9) September 23 7:43am Abnormal uterine bleeding September 23, 2024 10:48am Panniculitis October 10, 2024 8:27 am Weight loss, intentional October 10, 2024 8:27am Additional Source Comments INFORMATION SOURCE (unrecogn ized section and content) DATE CREATED AUTHOR 04/24/2021 [facility] DATE CREATED AUTHOR AUTHOR'S ORGANIZ ATION 11/05/2024 [facility] Care Teams (unrecognized sec tion and content) Team Status: Active Member Role Status Dates Dr. Aroldo Hua MD Family Provider Active Dr. Sadaf Neal MD Primary Care Provider Active Team Status: Inactive Member Role Status Dates Dr. Aroldo Hua MD Primary Care Provider, Referring P destiny Active Dr. Sadaf Neal MD Attending Provider Active Team Status: Inactive Member Role Status Dates Dr. Sadaf Neal MD Primary Care Pro vider, Attending Provider, Referring Provider Active Team Status: Inactive Member Role Status Dates Dr. Sadaf Neal MD Primary Care Provider, Referri ng Provider Active Rhina Rucker CNM Attending Provider Active Team Status: Active Member Role Status Dates Dr. Sadaf Neal MD Primary Care Provider Active Rhina Rucker CNM Attending Provider, Referring Pr ovider Active Team Status: Inactive Member Role Status Dates Dr. Sadaf Neal MD Primary Care Provider Active Rhina Rucker CNM Attending Provider, Referring Pr ovider Active Team Status: Active Member Role/Relationship Status Dates Dr. Aroldo Hua MD Family Provider Active Dr. Sadaf Neal MD Primary Care Provider Active Team Status: Inactive Member Role/Relationship Status Dates Dr. Sadaf Neal MD Primary Care Provider Active Start: September 23, 2024 End: September 23, 2024 Dr. Sadaf Neal MD Attending Provider Active Start: September 23, 2024 End: September 23, 2024 Dr. Sadaf Neal MD Referring Provider Active Start: September 23, 2024 End: September 23, 2024 Team Status: Inactive Member Role/Relationship Status Dates Dr. Sadaf Neal MD Primary Care Provider Active Start: September 23, 2024 End: September 23, 2024 Dr. Sadaf Neal MD Referring Provider Active Start: September 23, 2024 End: September 23, 2024 Gabriela Davis SLOOP CAPTAIN, SLOOP CAPTAIN-C Attending Provider Active Start: September 23, 2024 End: September 23, 2024 Team Status: Active Member Role/Relationship Status Dates Dr. Sadaf Neal MD Primary Care Provider Active Team Status: Inactive Member Role/Relationship Status Dates Dr. Sadaf Neal MD Primary Care Provider Active Start: September 23, 2024 End: September 23, 2024 Gabriela Davis SLOOP CAPTAIN, SLOOP CAPTAIN-C Attending Provider Active Start: September 23, 2024 End: September 23, 2024 Team Status: Active Member Role/Relationship Status Dates Dr. Sadaf Neal MD Primary Care Provider Active Start: September 26, 2024 Gabriela Davis SLOOP CAPTAIN, SLOOP CAPTAIN-C Attending Provider Active Start: September 26, 2024 Gabriela Davis SLOOP CAPTAIN, SLOOP CAPTAIN-C Referring Provider Active Start: September 26, 2024 Team Status: Inactive Member Role/Relationship Status Dates Dr. Sadaf Neal MD Primary Care Provider Active Start: September 26, 2024 End: September 26, 2024 Gabriela Davis SLOOP CAPTAIN, SLOOP CAPTAIN-C Attending Provider Active Start: September 26, 2024 End: September 26, 2024 Gabriela Davis SLOOP CAPTAIN, SLOOP CAPTAIN-C Referring Provider Active Start: September 26, 2024 End: September 26, 2024 Team Status: Inactive Member Role/Relationship Status Dates Dr. Sadaf Neal MD Primary Care Provider Active Start: October 10, 2024 End: October 10, 2024 Dr. Sadaf Neal MD Referring Provider Active Start: October 10, 2024 End: October 10, 2024 Dr. Cong Goyal MD Attending Provider Active Start: October 10, 2024 End: October 10, 2024 Goals (unrecognized section and content) Goals may be documented in a n alternate sectionGoals may be documented in an alternate sectionGoals may be documented in an alternate sectionGoals may be documented in an alternate sectionGoals may be documented in an alternate sectionGoals may be documented in an alternate sectionGoals may be documented in an alternate sectionGoals may be documented in an alternate sectionGoals may be documented in an alternate section FOR RECORDS PERTAINING TO PATIENTS WHO ARE OR HAVE BEEN ENROLLED IN A CHEMICAL DEPENDENCY/SUBSTANCEABUSE PROGRAM, SOME INFORMATION MAY BE OMITTED. This clinical summary was aggregated from multiple sources. Caution should be exercised in using it in the provision of clinical care. This summary normalizes information from multiple sources, and as a consequence, information in this document may materially change the coding, format and clinical context of patient data. In addition, data may be omitted in some cases. CLINICAL DECISIONS SHOULD BE BASED ON THE PRIMARY CLINICAL RECORDS. [employer] provides no warranty or guarantee of the accuracy or completeness of information in this document.
== END | disposition home or self-care (01) ==
LOC: OPBI 07:03
PROVIDERS: PCP Internal Medicine; Referring Provider Nurse Practitioner Family; Visit Provider Nurse Practitioner Family
DX: Z12.31 Encounter for screening mammogram for malignant neoplasm of breast (principal)
CPT/HCPCS: 77063; 77067

== ENCOUNTER → 2025-02-16 | Outpatient (CLI) | payer OTHER, SELFPAY ==
--- OUTSIDE RECORDS SUMMARY | 2025-02-16 09:53 | XMS RPT_ITS | CCD ---
Author Organization [facility] CliniSyor Care Team Providers Care Wincher Name Role Phone Dr. Aroldo Hua Primary Care Provider Dr. Aroldo Hua Referring Provider [phone] Sadaf Neal Attending Provider [phone] Dr. Sadaf Neal Primary Care Provider Dr. Sadaf Neal Referring Provider MICHAEL Rucker Attending Provider Dr. Sadaf Neal MD Primary Care Provider Dr. Sadaf Neal MD Attending Provider Dr. Sadaf Neal MD Referring Provider Ryan PEDIATRIC NEUROLOGIST-C, Gabriela Attending Provider Ryan PEDIATRIC NEUROLOGIST-C, Gabriela Referring Provider Jay Jay AMAYA, Dr. Gar Attending Provider Jessica PEDIATRIC NEUROLOGIST-C Jennifer Attending Provider Jessica PEDIATRIC NEUROLOGIST-C, Jennifer Referring Provider Anderson PEDIATRIC NEUROLOGIST, Gabriela Attending Unavailable Ángel, Sadaf Primary Care Unavailable Ángel, Sadaf Referring Unavailable Ryan PEDIATRIC NEUROLOGIST, Gabriela Attending Unavailable Anderson PEDIATRIC NEUROLOGIST, Gabriela Referring Unavailable Ángel, Sadaf Primary Care Unavailable Ryan PEDIATRIC NEUROLOGIST, Gabriela Attending Unavailable Medora, Sadaf Primary Care Unavailable Ángel, Sadaf Primary Care Unavailable Yaniman, Jennifer Attending Unavailable Barkman, Jennifer Referring Unavailable Ángel, Sadaf Primary Care Unavailable Yaniman, Jennifer Attending Unavailable Barkman, Jennifer Referring Unavailable Ángel, Sadaf Primary Care Unavailable Ángel, Sadaf Attending Unavailable Ángel, Sadaf Primary Care Unavailable Jennifer Lopez Attending Unavailable Jennifer Lopez Referring Unavailable Ángel, Sadaf Primary Care Unavailable Medora, Sadaf Attending Unavailable Medora, Sadaf Referring Unavailable Ryan MAYES, Gabriela Attending Unavailable Ángel, Sadaf Primary Care Unavailable Medora, Sadaf Referring Unavailable Medora, Sadaf Referring Unavailable Ángel, Sadaf Primary Care Unavailable Ángel, Sadaf Attending Unavailable Medora, Sadaf Referring Unavailable Medora, Sadaf Primary Care Unavailable Jennifer Lopez Attending Unavailable Ángel, Sadaf Primary Care Unavailable Cong Goyal Attending Unavailable Medora, Sadaf Referring Unavailable Medications Current Medications Medication Drug Class(es) Dates Sig (Normalized) Sig (Original) Tirzepatide (8 sources) Start: 01-01-2023 Tirzepatide Ac tive 7.5 MG SC EVERY WEEK 6 84 January 01, 2023 7:06pm Start: 08-22-2022 End: [...] mg/0.5 mL pen injector (20 sources) Start: 10-20-2024 Tirzepatide 5 mg/0.5 mL pen injector Active 5 mg SC EVERY WEEK 6 0 October 20, 2024 8:22am for 4 weeks Start: 10-19-2024 End: 10-20-2024 Tirzepatide 5 mg/0.5 mL pen injector Discontinued 5 mg SC EVERY WEEK 2 1 October 19, 2024 5:19pm October 20, 2024 8:22am for 4 weeks Start: 09-23-2024 End: 10-19-2024 Tirzepatide 5 mg/0.5 mL pen injector Discontinued 5 mg SC EVERY WEEK 2 September 23, 2024 8:15am October 19, 2024 5:20pm for 4 weeks Start: 09-23-2024 Tirzepatide 5 mg/0.5 mL pen [...] 5 mg SC EVERY WEEK 2 July 01, 2024 9:53am July 29, 2024 [...] (Original) medroxyPROGESTERone acetate 10 mg oral tablet (3 sources) Progestin Start: 10-01-19 End: 10-11-19 take 1 tablet by mouth once daily Medroxyprogesterone 10 mg tablet Discontinued 10 mg PO daily 10 10 September 30, 2024 12:00am October 09, 2024 12:00am October 10, 2024 12:08am metFORMIN hydrochloride 500 mg oral tablet (20 sources) Biguanide Start: 09-15-19 End: 03-27-19 take 1 tablet by mouth twice daily Metformin 500 mg tablet Discontinued 500 mg PO TWICE A DAY 180 October 18, 2022 11:23am March 27, 2023 6:22pm metFORMIN hydrochloride 1000 mg / SITagliptin 50 mg oral tablet (10 sources) Biguanide, Dipeptidyl Peptidase 4 Inhibitor Start: 01-17-20 18 End: 10-14-19 21 Sitagliptin Phos-Metformin (Janumet) 50-1,000 mg tablet Discontinued 1 {tbl} PO TWICE A DAY January 16, 2018 12:00am October 13, 2020 2:48pm nitrofurantoin, macrocrystals 25 mg / nitrofurantoin, monohydrate 75 mg oral capsule (10 sources) Nitrofuran Antibacterial Start: 11-24-19 End: 12-01-19 21 take 1 capsule by mouth twice daily at mealtime Nitrofurantoin Monohyd/M-Cryst (Macrobid) 100 mg capsule Discontinued 100 mg PO TWICE A DAY 14 7 0 November 23, 2020 12:00am November 29, 2020 12:00am November 30, 2020 12:01am must administer with a meal/food norethindrone acetate 5 mg oral tablet (12 sources) Start: 01-19-20 End: 03-27-19 24 take 1 tablet by mouth once daily Norethindrone Acetate 5 mg tablet Discontinued 5 mg PO DAILY 30 January 18, 2023 12:05pm March 27, 2023 3:25pm omeprazole 40 mg delayed release oral capsule (10 sources) Proton Pump Inhibitor Start: 05-24-19 End: 03-27-19 24 take 1 capsule by mouth once daily Omeprazole 40 mg capsule,delayed release(DR/EC) Discontinued 40 mg PO DAILY May 23, 2022 1:00am March 27, 2023 3:25pm progesterone 100 mg oral capsule (10 sources) Progesterone Start: 01-17-20 18 End: 10-14-19 take 1 capsule by mouth at bedtime Progesterone Micronized 100 mg capsule Discontinued 70 mg PO AT BEDTIME January 16, 2018 12:00am October 13, 2020 2:48pm Start: 01-16-2018 End: 10-13-2020 take 70 mg by mouth at bedtime Progesterone Micronized Discontinued 70 MG PO AT BEDTIME January 16, 2018 12:00am October 13, 2020 2:48pm Tirzepatide (Mounjaro) 2.5 mg/0.5 mL pen injector (20 sources) Start: 04-07-2024 End: 05-20-2024 Tirzepatide (Mounjaro) [...] Discontinued 2.5 mg SC EVERY WEEK 2 May 23, 2022 1:00am June 19, 2022 [...] (Mounjaro) 5 mg/ 0.5 mL pen injector (8 sources) Start: 06-12-2022 End: 08-01-2022 Tirzepatide (Mounjaro) 5 mg/ 0.5 mL pen injector Discontinued 5 mg SC EVERY WEEK 2 13 06June 12, 2022 10:52am August 01, 2022 11:29am Uncontrolled type 2 diabetes mellitus Type 2 diabetes mellitus with hyperglycemia Start: 06-12-2022 End: 08-01-2022 Tirzepatide (Mounjaro) 5 mg/ 0.5 mL pen injector Discontinued 5 MG SC EVERY WEEK 2 June 12, 2022 10:52am August 01, 2022 11:29am Tirzepatide 7.5 mg/0.5 mL pe n injector (18 sources) Start: 01-01-2023 End: 01-29-2024 Tirzepatide 7.5 mg/0.5 mL pe n injector Discontinued 7.5 mg SC EVERY WEEK 6 84 1 January 01, 2023 7:06pm January 29, 2024 8:25am Uncontrolled type 2 diabetes mellitus Type 2 diabetes mellitus with hyperglycemia Start: 08-02-2022 End: 08-22-2022 Tirzepatide 7.5 mg/0.5 mL pe n injector Discontinued 7.5 mg SC EVERY WEEK 2 August 02, 2022 2:35pm August 29, 2022 12:00am August 22, 2022 4:37pm Uncontrolled type 2 diabetes mellitus Type 2 diabetes mellitus with hyperglycemia Start: 08-01-2022 End: 08-02-2022 Tirzepatide 7.5 mg/0.5 mL pe n injector Discontinued 7.5 mg SC EVERY WEEK 2 28 August 01, 2022 11:28am August 28, 2022 12:00am August 02, 2022 2:35pm Uncontrolled type 2 diabetes mellitus Type 2 diabetes mellitus with hyperglycemia Problems Problem Classification Problem Date Documented Da te Episodic/Chronic Administrative/social admission (2 sources) Persons encountering health services in other specified circumstances; Translations: [Other reasons for seeking consultation] 05-23-2022 Episodic Diabetes mellitus with complications (12 sources) Type II diabetes mellitus uncontrolled; Translations: [Uncontrolled type 2 diabetes mellitus] 05-23-2022 Chronic Diabetes mellitus without complication (15 sources) Type 2 diabetes mellitus; Translations: [Type 2 diabetes mellitus without complications] Onset: 09-23-2024 08-22-2022 Chronic Esophageal disorders (2 sources) Gastro-esophageal reflux disease without esophagitis; Translations: [Esophageal reflux] 05-23-2022 Chronic Essential hypertension (12 sources) Essential hypertension; Translations: [Essential (primary) hypertension] 05-22-2022 Chronic Other connective tissue disease (2 sources) Pain in right foot; Translations: [Pain in limb] 05-23-2022 Episodic Other connective tissue disease (4 sources) Panniculitis; Translations: [Panniculitis, unspecified] 10-10-2024 Episodic Other connective tissue disease (1 source) Panniculitis, unspecified; Translations: [Panniculitis, unspecified] Onset: 10-10-2024 Episodic Other female genital disorders (12 sources) Abnormal uterine bleeding; Translations: [Abnormal uterine [...] Chronic Other nutritional; endocrine; and metabolic disorders (5 sources) Body mass index 25-29 - overweight; Translations: [Overweight] 09-23-2024 Episodic Other nutritional; endocrine; and metabolic disorders (4 sources) Intentional weight loss 10-10-2024 Episodic Other [...] Test Name Value Interpretation Reference Range Facility Breast imaging reportOrdered By: Brit Cox on 11-07-2024 Study report [facility] Imaging Services [address] [place], [place] [id number] SCRN MAMM (CAD)W/LINDA FLYNN MR#: [id number] Acct: [id number] Name: TETE STEWARD Rep #: [id number] : 1970 F 53 From: Desirae Cox MD PCP: Dr. Sadaf Neal MD Status: REG CLI Study:SCRN MAMM (CAD)W/LINDA BILAT Date of Exa m: 11/07/24 Exam# [id number] Ordering Dr: Jennifer Lopez PEDIATRIC NEUROLOGISTJasonC EXAM: SCRN MAMM (CAD)W/LINDA BILAT DATE: 11/07/2024 CLINICAL HISTORY: F, Age 53 y/o , SCREENING FOR BREAST CANCER TECHNIQUE: SCRN MAMM (CAD)W/LINDA BILAT COMPARISON: Prior exam(s) dated 06/02/2022, 10/28/2020. FINDINGS: TISSUE DENSITY: The breasts are almost entirely fatty. Bilateral Breast Mammographic Findings: No significant masses, calcifications or other abnormalities are identified. BI/SCRN MAMM (CAD)W/LINDA BILAT IMPRESSION: There is no mammographic evidence of malignancy. OVERALL FINAL ASSESSMENT BI-RADS 1: NEGATIVE. RECOMMENDATION: Routine annual follow-up in 1 Year A letter with findings and recommendations will be mailed to the patient. Reading Location: [facility] CC: NILO Lopez; Dr. Sadaf Neal MD ~ Laboratory Assistant: Signed [facility] SCRN MAMM (CAD)W/LINDA BILATo n 11-07-2024 SCRN MAMM (CAD)W/LINDA BILAT [facility] Imaging Services [address] [place] [id number] SCRN MAMM (CAD)W/LINDA BILAT MR#: [id number] Acct: [id number] Name: TETE STEWARD Rep #: [id number] : 1970 F 53 From: Brit Cox MD PCP: Dr. Sadaf Neal MD Status: REG CLI Study: SCRN MAMM (CAD)W/LINDA BILAT Date of Exam: 10/18 05/13 Exam# [id number] Ordering Dr: Jennifer Lopez PEDIATRIC NEUROLOGISTJasonC EXAM: SCRN MAMM (CAD)W/LINDA BILAT DATE: 11/07/2024 CLINICAL HISTORY: F, Age 53 y/o , SCREENING FOR BREAST CANCER TECHNIQUE: SCRN MAMM (CAD)W/LINDA BILAT COMPARISON: Prior exam(s) dated 06/02/2022, 10/28/2020. FINDINGS: TISSUE DENSITY: The breasts are almost entirely fatty. Bilateral Breast Mammographic Findings: No significant masses, calcifications or other abnormalities are identified. BI/SCRN MAMM (CAD)W/LINDA BILAT IMPRESSION: There is no mammographic evidence of malignancy. OVERALL FINAL ASSESSMENT BI-RADS 1: NEGATIVE. RECOMMENDATION: Routine annual follow-up in 1 Year A letter with findings and recommendations will be mailed to the patient. Reading Location: [id number] CC: NILO Lopez; Dr. Sadaf Neal MD Laboratory Assistant: Signed Normal [facility] Plastic Surgery Visit Report on 10-10-2024 Plastic Surgery Visit Report [facility] Plastic Reconstructive Surgery [address] [facility] [facility] [address], [address] [place] [address] OFFICE VISIT Date of Service: 10/10/24 MR#: [id number] Acct: [id number] Name: TETE STEWARD Rep #: [id number] : 1970 Provider: Dr. Cong Goyal MD Age/Sex: 53/F Location: [facility] Status: Signed Intake Vital Signs [...] 0 09/23/24 10/10/24 Rx subcutaneous pen injector [facility] Medical History Essential hypertension Bowel wall thickening [...] in March 2024 and went back on [facility] losing approximately 50 pounds in 3 months. Her BMI is currently 26 and she would like to stay around the same weight. No personal or family history of bleeding or clotting problems. Patient has had a right upper quadrant cyst removed by anchor tack puller. She reports rashes and pain with exercising [...] breat wit (more content not included)... Normal [facility] Transvaginal Non-on 09-26-2024 Transvaginal Non- [facility] Imaging Services [address] [place], [place] [address] Transvaginal Non- MR#: [id number] Acct: [id number] Name: TETE STEWARD Rep #: [id number] : 1970 F 53 From: Renan Adames MD PCP: Dr. Sadaf Neal MD Status: REG CLI Study: Transvaginal Non- Date of Exam: Exam# [id number] Ordering Dr: Gabriela Davis PEDIATRIC NEUROLOGIST PEDIATRIC NEUROLOGIST -C PROCEDURE: TRANSVAGINAL NON- 09/26/2024 REASON FOR [...] similar to ultrasound in 2022. Reading Location: [id number] CC: NILO Davis; Dr. Sadaf Neal MD Laboratory Assistant: Signed Normal [facility] Laboratory - Hematology and Cell countsOrdered By: Sadaf Neal on 09-23-2024 HbA1c (Bld) [Mass fraction] 4.5 % 4.2-6.3 [facility] National Account Director Office Visit Reporton 09-23-2024 National Account Director Office Visit Report [facility]'s [address], [address] [place] [address] OFFICE VISIT Date of Service: 09/23/24 MR#: [id number] Acct: [id number] Name: TETE STEWARD Rep #: [id number] : 1970 Provider: NILO boswell Age/Sex: 53/F Location: [facility] Status: Signed Intake Vital Signs 02/21/24 [...] EMB *abdoulaye from 08/19 Chief Complaint: EMB Stator Connector Required: No Is patient in pain?: No [...] Coding Lev (more content not included)... Normal [facility] Surgery Specimen Level Taj 09-23-2024 Surgery Specimen Level IV -------- Patient Age/Sex Location Account Attending Physician -------- TETE STEWARD 53/F LABSPEC [id number] NILO Esteban -------- Specimen: [id number] Received: 09/23/24 Status: CHERYL Patton Num: [id number] Spec Type: ENDOM BX/C Mikie Dr: NILO Esteban HEADER OPERATION: EMB PRE-OP [...] kumar-pink tissue. Entirely submitted in 1 cassette. UT 09/23/2024 CPT:07281 -------- Patient Age/Sex Location Account Attending Physician -------- TETE STEWARD 53/F LABSPEC [id number] NILO Esteban -------- Signed (signature on file) Dr. Missy Drummond MD 09/30/24 0956 -------- Normal [facility] Comment on above: Performed By: #### P SUIV ####[facility] [address] [place], [id number] Internal Medicine Office Vis iton 09-22-2024 Internal Medicine Office Visit [facility] [address] [place] [address] [address] [place] [address] OFFICE VISIT Date of Service: 09/23/24 MR#: [id number] Acct: [id number] Name: TETE STEWARD Rep #: [id number] : 1970 Provider: Dr. Sadaf lopez MD Age/Sex: 53/F Location: [facility] Status: Signed Intake Vital Signs 02/21/24 08:50 09/23/24 07:59 Height 5 ft 4 in 5 ft 4 in Weight: 163 lb BMI 27.9 BP 118/74 Blood Pressure Location Lt brachial Position Sitting Respiration 14 Pulse 79 Pulse Source Monitor Temp 97.4 F L Temp Source Temporal Pulse Oximetry (%) 97 Oxygen Delivery Method room air Intake Visit Reasons: MED FU Stator Connector Required: No Is patient in pain?: No Allergies No Known Allergies Allergy (Verified 09/23/24 07:50) Medications ???Medication ???Instructions ???Recorded ???Confirmed ???Type tirzepatide 5 mg/0.5 mL 5 mg (0.5 mL) subcut QWEEK #2 mL 0 09/23/24 09/23/24 Rx subcutaneous pen injector Nurse's Note: Pt wants to increase dose of mounjaro, has seen an increase in appetite as she has been on this dose awhile. [facility] Medical History (Updated 09/23/24 @ 09:33 by [...] home: Yes additional social history: - Deni [facility] HPI Details: TETE STEWARD, is a 53 [...] fatigue, flushing, (more content not included)... Normal [facility] PAP IG HPV APTIMA 16/18,45on 03-03-2024 ADEQ Comment Normal . [facility] Comment on above: Order Comment: Speci men Comment: [id number] Comment: Source.............CervixSpecimen Comment: No. of containers..01 ThinPrep Vial Result Comment: Sati sfactory for evaluation. Endocervical and/or squamous metaplastic cells (endocervical component) are present. Performed By: #### L 7400.0280 ####[facility] [address] [place], [place], [id number] COMM . Normal . [facility] Comment on above: Order Comment: Speci men Comment: [id number] Comment: Source.............CervixSpecimen Comment: No. of containers..01 ThinPrep Vial Performed By: #### L 7400.0280 ####[facility] [address] [place], [place], [id number] COMMENT Comment Normal . [facility] Comment on above: Order Comment: Speci men Comment: [id number] Comment: Source.............CervixSpecimen Comment: No. of containers..01 ThinPrep Vial Result Comment: This liquid based ThinPrep(R) pap test was screened with the use of an image guided system. Performed By: #### L 7400.0280 ####[facility] [address] [place], [place], [id number] DIAG Comment Normal . [facility] Comment on above: Order Comment: Speci men Comment: [id number] Comment: Source.............CervixSpecimen Comment: No. of containers..01 ThinPrep Vial Result Comment: NEGA TIVE FOR INTRAEPITHELIAL LESION OR MALIGNANCY. Performed By: #### L 7400.0280 ####[facility] [address] [place], [place], [address] HPV APTIMA, HR Negative Normal Negative [facility] Comment on above: Order Comment: Speci men Comment: [id number] Comment: Source.............CervixSpecimen Comment: No. of containers..01 ThinPrep Vial Result Comment: This nucleic acid amplification test detects fourteen high- risk HPV types (16,18,31,33,35,39,45,51,52,56,58,59,66,68) without differentiation. Performed By: #### L 7400.0280 ####[facility] [address] [place], [place], [id number] HPV Fernanda Rfx Comment Normal . [facility] Comment on above: Order Comment: Speci men Comment: [id number] Comment: Source.............CervixSpecimen Comment: No. of containers..01 ThinPrep Vial Result Comment: Crit eria not met, HPV Genotype not performed. Performed at: [facility] [address] [address] [place], [place] [id number] Material Control Clerk: Eduar Guerrero MD, Phone: [phone] Performed at: - [address] [id number] Material Control Clerk: Aimee Dominguez MD, Phone: [phone] Performed at: = - [address] [id number] Material Control Clerk: Aimee Dominguez MD, Phone: [phone] Performed By: #### L 7400.0280 ####[facility] [address] [place], [place], [address] PAPSMR Comment Normal . [facility] Comment on above: Order Comment: Speci men Comment: [id number] Comment: Source.............CervixSpecimen Comment: No. of containers..01 ThinPrep Vial Result Comment: The Pap smear is a screening test designed to aid in the detection of premalignant and malignant conditions of the uterine cervix. It is not a diagnostic procedure and should not be used as the sole means of detecting cervical cancer. Both false-positive and false-negative reports do occur. Performed By: #### L 7400.0280 ####[facility] [address] [place], [place], [phone] PERFORM Comment Normal . [facility] Comment on above: Order Comment: Speci men Comment: [id number] Comment: Source.............CervixSpecimen Comment: No. of containers..01 ThinPrep Vial Result Comment: Waldo Urbina Turbinated Bone Grinder (ASCP) Performed By: #### L 7400.0280 ####[facility] [address] [place], [place], [id number] Estradiolon 02-22-2024 ESTRADIOL 91.6 pg/mL Normal [facility] Comment on above: Result Comment: NORM AL [...] #### L 3300.1750, L501.9520, L3100.5125, L506.0400 #### [facility] [address] [place], [address] Follicle Stimulating Hormone on 02-22-2024 FSH 6.4 mIU/mL Normal [facility] Comment on above: Result Comment: NORMAL REFERENCE RANGES FEMALE FOLLICULAR 2.3 - 12.6 mIU/mL MID-CYCLE PEAK 5.2 - 17.5 mIU/mL LUTEAL 1.7 - 12.9 mIU/mL POST-MENOPAUSAL ON MHT 5.9 - 72.8 mIU/mL NOT ON MHT 12.7 - 132.2 mlU/mL MALE 0.7 - 10.8 mIU/mL Performed By: #### L 3300.1750, L501.9520, L3100.5125, L506.0400 #### [facility] [address] [place], [address] T4 Free Directon 02-22-2024 T4 FREE DIRECT 1.00 ng/dL Normal 0.76-1.46 [facility] Comment on above: Performed By: #### L 3300.1750, L501.9520, L3100.5125, L506.0400 #### [facility] [address] [place], [address] Thyroid Stim Hormone (TSH)on 02-22-2024 TSH 1.660 uIU/mL Normal 0.358-3.740 [facility] Comment on above: Performed By: #### L 3300.1750, L501.9520, L3100.5125, L506.0400 #### [facility] [address] 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 Normal [facility] CBC W/Diff, Automatedon 11-1 2-2023 Absolute Lymph 1.51 X10 3/uL Normal 0.83-4.51 [facility] Comment on above: Performed By: #### L 100.0100, L500.4100, L500.4050, L502.0250 #### [facility] [address] [place], [address] Absolute Neut 2.4 X10 3/uL Normal 2.0-7.7 [facility] Comment on above: Performed By: #### L 100.0100, L500.4100, L500.4050, L502.0250 #### [facility] [address] [place], [address] Basophils/100 WBC (Bld) 1.3 % High 0-1 [facility] Comment on above: Performed By: #### L 100.0100, L500.4100, L500.4050, L502.0250 #### [facility] [address] [place], [address] Eosinophils/100 WBC (Bld) 4.8 % Normal 0-5 [facility] Comment on above: Performed By: #### L 100.0100, L500.4100, L500.4050, L502.0250 #### [facility] [address] [place], [address] Erythrocyte distribution width (RBC) [Ratio] 13.2 % Normal 11.6-14.6 [facility] Comment on above: Performed By: #### L 100.0100, L500.4100, L500.4050, L502.0250 #### [facility] [address] [place], [address] Hematocrit (Bld) [Volume fraction] 38.2 % Normal 37-47 [facility] Comment on above: Performed By: #### L 100.0100, L500.4100, L500.4050, L502.0250 #### [facility] [address] [place], [address] Hemoglobin (Bld) [Mass/Vol] 13.0 g/dL Normal 12.0-15.0 [facility] Comment on above: Performed By: #### L 100.0100, L500.4100, L500.4050, L502.0250 #### [facility] [address] [place], [address] IG% 0.400 Normal 0.0-0.9 [facility] Comment on above: Result Comment: IG% - Immature Granulocytes (promyelocytes, myelocytes and metamyelocytes) > 1% indicates that a LEFT SHIFT is Present. Performed By: #### L 100.0100, L500.4100, L500.4050, L502.0250 #### [facility] [address] [place], [address] Lymphocytes/100 WBC (Bld) 33.2 % Normal 19-41 [facility] Comment on above: Performed By: #### L 100.0100, L500.4100, L500.4050, L502.0250 #### [facility] [address] [place], [address] MCH (RBC) [Entitic mass] 28.4 pg Normal 27.0-32.0 [facility] Comment on above: Performed By: #### L 100.0100, L500.4100, L500.4050, L502.0250 #### [facility] [address] [place], [address] MCHC (RBC) [Mass/Vol] 34.0 g/dL Normal 32-36 [facility] Comment on above: Performed By: #### L 100.0100, L500.4100, L500.4050, L502.0250 #### [facility] [address] [place], [address] MCV (RBC) [Entitic vol] 83.6 fL Normal 81-99 [facility] Comment on above: Performed By: #### L 100.0100, L500.4100, L500.4050, L502.0250 #### [facility] [address] [place], [address] Monocytes/100 WBC (Bld) 7.9 % Normal 0-10 [facility] Comment on above: Performed By: #### L 100.0100, L500.4100, L500.4050, L502.0250 #### [facility] [address] [place], [address] Neutrophils/100 WBC (Bld) 52.4 % Normal 47-70 [facility] Comment on above: Performed By: #### L 100.0100, L500.4100, L500.4050, L502.0250 #### [facility] [address] [place], [address] Nucleated RBC (Bld) [#/Vol] 0 10*3/uL Normal 0-5 [facility] Comment on above: Performed By: #### L 100.0100, L500.4100, L500.4050, L502.0250 #### [facility] [address] [place], [address] Platelet mean volume (Bld) [Entitic vol] 10.0 fL Normal 6.2-12.0 [facility] Comment on above: Performed By: #### L 100.0100, L500.4100, L500.4050, L502.0250 #### [facility] [address] [place], [address] Platelets (Bld) [#/Vol] 307 10*3/uL Normal 150-450 [facility] Comment on above: Performed By: #### L 100.0100, L500.4100, L500.4050, L502.0250 #### [facility] [address] [place], [address] RBC (Bld) [#/Vol] 4.57 10*6/uL Normal 4.2-5.4 [facility] Comment on above: Performed By: #### L 100.0100, L500.4100, L500.4050, L502.0250 #### [facility] [address] [place], [address] RDW SD 40.0 fl Normal 35.1-43.9 [facility] Comment on above: Performed By: #### L 100.0100, L500.4100, L500.4050, L502.0250 #### [facility] [address] [place], [address] WBC (Bld) [#/Vol] 4.6 10*3/uL Normal 4.4-11.0 [facility] Comment on above: Performed By: #### L 100.0100, L500.4100, L500.4050, L502.0250 #### [facility] [address] [place], [address] Comprehensive Metabolic Prof [facility] 01-29-2024 Albumin [Mass/Vol] 3.6 g/dL Normal 3.2-5.0 [facility] Comment on above: Performed By: #### L 100.0100, L500.4100, L500.4050, L502.0250 ####[facility] [address] [place], [address] Albumin/Globulin [Mass ratio] 0.9 {ratio} Normal 0.9-2.4 [facility] Comment on above: Performed By: #### L 100.0100, L500.4100, L500.4050, L502.0250 ####[facility] [address] [place], [address] ALK P 84 U/L Normal 45-117 [facility] Comment on above: Performed By: #### L 100.0100, L500.4100, L500.4050, L502.0250 ####[facility] [address] [place], [address] ALT [Catalytic activity/Vol] 14 U/L Normal 13-56 [facility] Comment on above: Performed By: #### L 100.0100, L500.4100, L500.4050, L502.0250 ####[facility] [address] [place], [address] AST [Catalytic activity/Vol] 11 U/L Low 15-37 [facility] Comment on above: Performed By: #### L 100.0100, L500.4100, L500.4050, L502.0250 ####[facility] [address] [place], [address] Bilirubin [Mass/Vol] 0.30 mg/dL Normal 0.20-1.00 [facility] Comment on above: Result Comment: For patients on eltrombopag therapy, use of Dimension [place] TBIL is not recommended. Performed By: #### L 100.0100, L500.4100, L500.4050, L502.0250 ####[facility] [address] [place], [address] BUN/CRE 19.8 RATIO Normal 10-20 [facility] Comment on above: Performed By: #### L 100.0100, L500.4100, L500.4050, L502.0250 ####[facility] [address] [place], [address] CA,Total 9.0 mg/dL Normal 8.5-10.1 [facility] Comment on above: Performed By: #### L 100.0100, L500.4100, L500.4050, L502.0250 ####[facility] [address] [place], [address] Chloride [Moles/Vol] 106 mmol/L Normal 98-107 [facility] Comment on above: Performed By: #### L 100.0100, L500.4100, L500.4050, L502.0250 ####[facility] [address] [place], [address] CO2 [Moles/Vol] 26.0 mmol/L Normal 21.0-32.0 [facility] Comment on above: Performed By: #### L 100.0100, L500.4100, L500.4050, L502.0250 ####[facility] [address] [place], [address] Creatinine [Mass/Vol] 0.76 mg/dL Normal 0.55-1.02 [facility] Comment on above: Result Comment: The validity of the calculated GFR GFRAA in patients over 70 years has not been determined. Clinical correlation is essential. Performed By: #### L 100.0100, L500.4100, L500.4050, L502.0250 ####[facility] [address] [place], [address] EST GFR - AA 102 mL/min Normal >60 [facility] Comment on above: Result Comment: Afri can Prydeinig GFR Calc Performed By: #### L 100.0100, L500.4100, L500.4050, L502.0250 ####[facility] [address] [place], [address] GAP 6 Normal 5-15 [facility] Comment on above: Performed By: #### L 100.0100, L500.4100, L500.4050, L502.0250 ####[facility] [address] [place], [address] GFR/1.73 sq M.predicted among non-blacks MDRD (S/P/Bld) [Vol rate/Area] 84 mL/min/{1.73_m2} Normal >60 [facility] Comment on above: Result Comment: Non- GFR Calc Performed By: #### L 100.0100, L500.4100, L500.4050, L502.0250 ####[facility] [address] [place], [address] Globulin (S) [Mass/Vol] 4.0 g/dL Normal 2.2-4.2 [facility] Comment on above: Performed By: #### L 100.0100, L500.4100, L500.4050, L502.0250 ####[facility] [address] [place], [address] Glucose [Mass/Vol] 148 mg/dL High 74-106 [facility] Comment on above: Result Comment: Fast ing Glucose result greater than or equal to 126 mg/dL suggests DIABETES MELLITUS per A.D.A. criteria. Performed By: #### L 100.0100, L500.4100, L500.4050, L502.0250 ####[facility] [address] [place], [address] Potassium [Moles/Vol] 4.3 mmol/L Normal 3.5-5.1 [facility] Comment on above: Performed By: #### L 100.0100, L500.4100, L500.4050, L502.0250 ####[facility] [address] [place], [address] Sodium [Moles/Vol] 138 mmol/L Normal 136-145 [facility] Comment on above: Performed By: #### L 100.0100, L500.4100, L500.4050, L502.0250 ####[facility] [address] [place], [address] T PROT 7.6 g/dL Normal 6.4-8.2 [facility] Comment on above: Performed By: #### L 100.0100, L500.4100, L500.4050, L502.0250 ####[facility] [address] [place], [address] Urea nitrogen [Mass/Vol] 15 mg/dL Normal 7-18 [facility] Comment on above: Performed By: #### L 100.0100, L500.4100, L500.4050, L502.0250 ####[facility] [address] [place], [address] Lipid Profileon 01-29-2024 Cholesterol [Mass/Vol] 194 mg/dL Normal 200 [facility] Comment on above: Result Comment: <200 mg/dL Desirable 200-240 mg/dL Borderline >240 mg/dL High Risk Performed By: #### L 100.0100, L500.4100, L500.4050, L502.0250 ####[facility] [address] [place], [address] Cholesterol in HDL [Mass/Vol] 63 mg/dL Normal [facility] Comment on above: Result Comment: The drugs N-Acetylcysteine and Metamizole may falsely depress this assay. Reference Range HDL <40 mg/dL Low HDL Cholesterol HDL >or= 60 mg/dL High HDL Cholesterol Performed By: #### L 100.0100, L500.4100, L500.4050, L502.0250 ####[facility] [address] [place], [address] Cholesterol in LDL [Mass/Vol] 119 mg/dL Normal 0-130 [facility] Comment on above: Performed By: #### L 100.0100, L500.4100, L500.4050, L502.0250 ####[facility] [address] [place], [address] Cholesterol in VLDL [Mass/Vol] 12 mg/dL Normal 5-40 [facility] Comment on above: Performed By: #### L 100.0100, L500.4100, L500.4050, L502.0250 ####[facility] [address] [place], [address] Triglyceride [Mass/Vol] 62 mg/dL Normal [facility] Comment on above: Result Comment: The drugs N-Acetylcysteine and Metamizole may falsely depress this assay. Serum Triglycerides Reference Interval Normal <150 mg/dL Borderline high 150 - 199 mg/dL High 200 - 499 mg/dL Very High > or = 500 mg/dL Performed By: #### L 100.0100, L500.4100, L500.4050, L502.0250 ####[facility] [address] [place], [address] Microalb:Creat Ratio,Random URon 01-29-2024 Creatinine [Mass/Vol] 94.80 mg/dL Normal NO RANGE EST. [facility] Comment on above: Performed By: #### L 100.0100, L500.4100, L500.4050, L502.0250 ####[facility] [address] [place], [address] MALB:CRE 5.8 mg/g CRE Normal <30 mg/g CRE [facility] Comment on above: Performed By: #### L 100.0100, L500.4100, L500.4050, L502.0250 ####[facility] [address] [place], [address] MICROALBUMIN,UR 5.5 mg/L Normal NO RANGE EST. [facility] Comment on above: Performed By: #### L 100.0100, L500.4100, L500.4050, L502.0250 ####[facility] [address] [place], [address] Internal Medicine Office Vis ito 01-28-2024 Internal Medicine Office Visit [facility] [address] [place] [address] [address] [place] [address] OFFICE VISIT Date of Service: 01/29/24 MR#: [id number] Acct: [id number] Name: TETE STEWARD Rep #: [id number] : 1970 Provider: Dr. Sadaf lopez MD Age/Sex: 53/F Location: [facility] [place] [place] Status: Signed Intake Vital Signs 03/27/23 14:26 01/29/24 07:25 Height 5 ft 4 in 5 ft 4 in Weight: 182 lb BMI 31.2 BP 124/84 H Blood Pressure Location Lt brachial Position Sitting Respiration 14 Pulse 66 Pulse Source Monitor Temp 97.1 F L Temp Source Temporal Pulse Oximetry (%) 97 Oxygen Delivery Method room air Intake Visit Reasons: discuss meds Stator Connector Required: No Is patient in pain?: No Allergies No Known Allergies Allergy (Verified 01/29/24 07:19) Medications ???Medication ???Instructions ???Recorded ???Confirmed ???Type tirzepatide 2.5 mg/0.5 mL 2.5 mg (0.5 mL) subcut QWEEK #6 mL 01/29/24 01/29/24 Rx subcutaneous pen injector (CrunchedunKadmon) Nurse's Note: States she came off of mounKadmon in June and wants to go back on it. States she has been stress eating. Declines flu vaccine. Is fasting so will do labs after appointment as she never got them done earlier this year. [facility] Medical History Bowel wall thickening HTN (hypertension) [...] home: Yes additional social history: - Deni [facility] HPI Details: TETE STEWARD, is a 53 [...] is interested in getting back on the SideStepKadmon. She never scheduled her diabetic eye exam. [...] abnormal g (more content not included)... Normal [facility] Cervical or vagninal specime n microscopic examination by cytology stain (reported asOrdered By: Rhina Rucker on 01-10-2023 Cytology report Cyto stain Doc (Cvx/Vag) Comment . [facility] Comment on above: The Pap smear is [...] DNA Probe+sig amp Ql (Cvx) Negative Negative [facility] Comment on above: This nucleic acid am plification test detects fourteen high-risk HPV types (16,18,31,33,35,39,45,51,52,56,58,59,66,68)without differentiation. Laboratory - CytologyOrdered By: Rhina Rucker on 01-10-2023 Medical Microbiologist Cyto stain Nom (Cvx/Vag) [ID] Comment . [facility] Comment on above: Martha Barillas, Cyto technologist (ASCP) Recommended follow-up Cyto stain Nom (Cvx/Vag) Comment . [facility] Comment on above: Suggest follow up as clinically appropriate. Laboratory - Miscellaneous t estsOrdered By: Rihna Rucker on 01-10-2023 Service comment (Unsp spec) [Interp] TNP [facility] Comment on above: Test not performedTh e Thin Prep(R) Box Liner was unable to read this specimen.Therefore a manual review was performed. Service comment (Unsp spec) [Interp] . . [facility] Liquid-based cerv Pap + CT/G C by REDD w reflex to high-risk HPV for ASCUSOrdered By: Rhina Rucker on 01-10-2023 Cytology report Cyto stain.thin prep Doc (Cvx/Vag) Comment . [facility] Comment on above: Criteria not met, HP V Genotype not performed.Performed at: - [facility] [id number] Director: Aimee Dominguez MD, Phone: [phone] at: =G - [facility] [id number] Director: Aimee Dominguez MD, Phone: [phone] No Panel InformationOrdered By: Rhina Rucker on 01-10-2023 Pap Smear Specimen Adequacy Comment . [facility] Comment on above: Specimen processed a nd examined but unsatisfactory for evaluation ofepithelial abnormality because of insufficient cellularity. Pathology report final diagnosis Narrative Comment . [facility] Comment on above: UNSATISFACTORY FOR E VALUATION. Absolute lymphocyte countOrd ered By: Dr. Neal on 05-26-2022 Lymphocytes Auto (Unsp spec) [#/Vol] 2.09 10*3/uL 0.83-4.51 [facility] Basophil percentageOrdered B y: Dr. Neal on 05-26-2022 Basophils/100 WBC (Bld) 0.8 % 0-1 [facility] Bilirubin [Mass/Vol] 0.50 mg/dL 0.20-1.00 [facility] Comment on above: For patients on eltr ombopag therapy, use of Dimension [place] TBIL is not recommended. Chloride [Moles/Vol] 102 mmol/L 98-107 [facility] Cholesterol [Mass/Vol] 164 mg/dL <200 [facility] Comment on above: <200 mg/dL Desirable 200-240 mg/dL Borderline >240 mg/dL High Risk Eosinophils/100 WBC (Bld) 2.4 % 0-5 [facility] Glucose [Mass/Vol] 278 mg/dL 74-106 [facility] Comment on above: Glucose result great er than or equal to 200 mg/dLsuggests DIABETES MELLITUS per A.D.A. criteria. Neutrophils (Bld) [#/Vol] 4.9 10*3/uL 2.0-7.7 [facility] Neutrophils/100 WBC (Bld) 63.2 % 47-70 [facility] Potassium [Moles/Vol] 4.4 mmol/L 3.5-5.1 [facility] Protein [Mass/Vol] 8.1 g/dL 6.4-8.2 [facility] Sodium [Moles/Vol] 134 mmol/L 136-145 [facility] Triglyceride [Mass/Vol] 88 mg/dL <199 [facility] Comment on above: The drugs N-Acetylcy steine and Metamizole may falsely depress this assay.Serum Triglycerides Reference Interval Normal <150 mg/dL Borderline high 150 - 199 mg/dL High 200 - 499 mg/dL Very High > or = 500 mg/dL WBC (Bld) [#/Vol] 7.8 10*3/uL 4.4-11.0 [facility] Blood erythrocytes count (nu mber/volume)Ordered By: Dr. Neal on 05-26-2022 RBC (Bld) [#/Vol] 4.77 10*6/uL 4.2-5.4 [facility] Blood hemoglobin measurement (mass/volume)Ordered By: Dr. Neal on 05-26-2022 Hemoglobin (Bld) [Mass/Vol] 13.9 g/dL 12.0-15.0 [facility] Blood lymphocytes/100 leukoc ytesOrdered By: Dr. Neal on 05-26-2022 Lymphocytes/100 WBC (Bld) 26.7 % 19-41 [facility] Blood monocytes/100 leukocyt esOrdered By: Dr. Neal on 05-26-2022 Monocytes/100 WBC (Bld) 6.4 % 0-10 [facility] Blood platelet mean volumeOr dered By: Dr. Neal on 05-26-2022 Platelet mean volume (Bld) [Entitic vol] 10.3 fL 6.2-12.0 [facility] Determination of erythrocyte mean corpuscular volume (MCV)Ordered By: Dr. Neal on 05-26-2022 MCV (RBC) [Entitic vol] 85.7 fL 81-99 [facility] Hematocrit Auto (Bld) [Volum e fraction]Ordered By: Dr. Neal on 05-26-2022 Hematocrit (Bld) [Volume fraction] 40.9 % 37-47 [facility] - Chemistry and C hemistry - challengeOrdered By: Dr. Neal on 05-26-2022 ALP [Catalytic activity/Vol] 96 U/L 45-117 [facility] ALT [Catalytic activity/Vol] 35 U/L 13-56 [facility] CO2 [Moles/Vol] 26.0 mmol/L 21.0-32.0 [facility] Globulin (S) [Mass/Vol] 4.3 g/dL 2.2-4.2 [facility] Urea nitrogen/Creatinine [Mass ratio] 17.9 mg/mg 10-20 [facility] - Hematology and Cell countsOrdered By: Dr. Neal on 05-26-2022 Erythrocyte distribution width (RBC) [Entitic vol] 41.1 fL 35.1-43.9 [facility] Erythrocyte distribution width (RBC) [Ratio] 13.2 % 11.6-14.6 [facility] Immature granulocytes/100 WBC (Bld) 0.500 % 0.0-0.9 [facility] Comment on above: IG% - Immature Granu locytes (promyelocytes, myelocytes and metamyelocytes) > 1% indicates that a LEFT SHIFT is Present. MCH (RBC) [Entitic mass] 29.1 pg 27.0-32.0 [facility] Nucleated RBC/100 WBC (Bld) [Ratio] 0 % 0-5 [facility] MCHC Auto (RBC) [Mass/Vol]Or dered By: Dr. Neal on 05-26-2022 MCHC (RBC) [Mass/Vol] 34.0 g/dL 32-36 [facility] No Panel InformationOrdered By: Dr. Neal on 05-26-2022 Urine Microalbumin/Creatinine Ratio 29.9 mg/g CRE <30 [facility] Estimated GFR (MDRD) Amer 107 mL/min >60 [facility] Comment on above: GFR Calc Estimated GFR (MDRD) Non-Af Amer 89 mL/min >60 [facility] Comment on above: Non- GFR Calc Platelets bldOrdered By: Dr. Neal on 05-26-2022 Platelets (Bld) [#/Vol] 348 10*3/uL 150-450 [facility] Serum or plasma albumin angel urement (mass/volume)Ordered By: Dr. Neal on 05-26-2022 Albumin [Mass/Vol] 3.8 g/dL 3.2-5.0 [facility] Serum or plasma albumin/glob ulin mass ratioOrdered By: Dr. Neal on 05-26-2022 Albumin/Globulin [Mass ratio] 0.9 {ratio} 0.9-2.4 [facility] Serum or plasma calcium angel urement (mass/volume)Ordered By: Dr. Neal on 05-26-2022 Calcium [Mass/Vol] 9.0 mg/dL 8.5-10.1 [facility] Serum or plasma cholesterol in HDL measurement (mass/volume)Ordered By: Dr. Neal on 05-26-2022 Cholesterol in HDL [Mass/Vol] 55 mg/dL >40 [facility] Comment on above: The drugs N-Acetylcy steine and Metamizole may falsely depress this assay. Reference Range HDL <40 mg/dL Low HDL Cholesterol HDL >or= 60 mg/dL High HDL Cholesterol Serum or plasma cholesterol in VLDL measurement (mass/volume)Ordered By: Dr. Neal on 05-26-2022 Cholesterol in VLDL [Mass/Vol] 18 mg/dL 5-40 [facility] Serum or plasma creatinine m easurement (mass/volume)Ordered By: Dr. Neal on 05-26-2022 Creatinine [Mass/Vol] 0.73 mg/dL 0.55-1.02 [facility] Comment on above: The validity of the calculated GFR & GFRAA in patients over 70 years has not been determined. Clinical correlation is essential. Serum or plasma low density lipoprotein (LDL) cholesterol measurement (mass/volume)Ordered By: Dr. Neal on 05-26-2022 Cholesterol in LDL [Mass/Vol] 91 mg/dL 0-130 [facility] Serum or plasma urea nitroge n measurement (mass/volume)Ordered By: Dr. Neal on 05-26-2022 Urea nitrogen [Mass/Vol] 13 mg/dL 7-18 [facility] Thin prep Papanicolaou smear with manual screeningOrdered By: Dr. Neal on 05-26-2022 Thin prep Papanicolaou smear with manual screening 32.0 mg/L NO RANGE EST. [facility] Thin prep Papanicolaou smear with manual screening 18 U/L 15-37 [facility] Thin prep Papanicolaou smear with manual screening 6 5-15 [facility] Urine creatinine measurement (mass/volume)Ordered By: Dr. Neal on 05-26-2022 Creatinine (U) [Mass/Vol] 107.00 mg/dL NO RANGE EST. [facility] - Hematology and Cell countson 05-23-2022 HbA1c (Bld) [Mass fraction] 8.3 % 4.2-6.3 [facility] CNPNon 08-06-2020 CNPN Telephone (ENDOMN) TETE STEWARD ([id number]) 1970 F Date Time Provider Department 08/06/20 REJI DEMARCO ([facility]) ENDOMN During your visit today, we recorded the following information about you: Reji Demarco 08/06/2020 11:53 AM Signed IRB #: [id number] Title of study: The use of virtual weight management program for prescription of phentermine in patients with overweight or obesity compared to standard cjww-ck-qlfa visits. Skin Care Specialist: Stuart Baires MD Research Dry Mixer: Reji Demarco Office: [phone] Patient cancelled/ missed visit #3 for 07/16/2020. [...] that she had to pay $350 for ape-gy-eyskea costs for medication and for lab work. She stated that she d/c medication 3 weeks ago. States that due to economic constraints is no longer interested in trial. Will share with PI. Thanked her for her honesty and her time. Allergies As of Date: 08/06/2020 (No Known Allergies) Date Reviewed: 06/18/2020 Reviewed by: Nani Woo (Kadeem) Ludivina - Fully Assessed Reason for Visit: [...] Encounter Status:Closed by REJI DEMARCO on 08/06/20 [facility] Jose 07-22-2020 SHANELLN Telephone (ENDOMN) TETE STEWARD ([id number]) 1970 F Date Time Provider Department 07/22/20 REJI DEMARCO ([facility]) WALE During your visit today, we recorded the following information about you: Reji Demarco 07/22/2020 2:36 PM Signed IRB #: [id number] Title of study: The use of virtual weight management program for prescription of phentermine in patients with overweight or obesity compared to standard fzax-pv-acdp visits. Skin Care Specialist: Stuart Baires MD Research Dry Mixer: Reji Demarco Office: [phone] Attempted to contact patient regarding study to schedule visit 3 and visit 4 to hopefully catch the last few days of the renewal window. Called mobile and left voicemail. Allergies As of Date: 07/22/2020 (No Known Allergies) Date Reviewed: 06/18/2020 Reviewed by: Nani Woo (Kadeem) Ludivina - Fully Assessed Reason for Visit: [...] Encounter Status:Closed by REJI DEMARCO on 07/22/20 [facility] CNOVon 06-18-2020 CNOV Office Visit (EWMLYN ) TETE STEWARD ([id number]) 1970 F Date Time Provider Department 06/18/20 8:30 AM STUART BIARES During your visit today, we recorded the following information about you: Pulse Blood pressure Weight 81/minute 132/89 91.1 kg Nani Florence, KADEEM 06/18/2020 8:28 AM Signed Thank you for choosing the [facility] Department of Endocrinology, Diabetes and Metabolism. Did you know that you need to call 48 hours in advance of your scheduled visit, if you are unable to make your appointment? The [facility]inology [facility] thanks you for your commitment, because patients not showing to their appointment results in a lost opportunity for patients to receive [facility] health care at the [facility]. To Cancel an appointment, please choose one of the following: - Call the Appointment Call Center at [phone] - From magnetU, Go to Appointments ? Cancel Appts If cancelling, consider your need to reschedule to prevent further delays in your care. To Schedule an appointment, please choose one of the following: - Call the Appointment Call Center at [phone] - From magnetU, Go to Appointments ? Request an Appt Stuart Baires MD 06/18/2020 9:26 AM Signed [facility] RETURN VISIT IRB #: [id number]: Follow-up Visit 1 (second visit) Title of study: The use of virtual weight management program for prescription of phentermine in patients with overweight or obesity compared to standard swqh-rv-hysk visits. Skin Care Specialist: Stuart Baires MD Research Dry Mixer: Reji Demarco AND Nneka Pantoja MD Office: [phone] OR [phone] Patient Randomized to: Usual care / Virtual Care Did patient attend dietitian appointment? Yes If yes, which diet are they on:diet choice weight mgmt: Ketogenic Did patient attend visor installer appointment? {Y/N:63 Any changes to current regimen: [...] Breast Can (more content not included)... Normal [facility] Jose 06-17-2020 CNPN Telephone (EWMLYN) TETE STEWARD ([id number]) 1970 F Date Time Provider Department 06/17/20 [...] Status:Closed by FABI HARMAN MA on 06/17/20 [facility] Comp Metabolic Panelon 06-15 Albumin [Mass/Vol] 4.5 g/dL Normal 3.9-4.9 [facility] Comment on above: Performed By: #### C MP, URIC #### [facility] [address] [place] [address] ALP [Catalytic activity/Vol] 91 U/L Normal 34-[address] [facility] Comment on above: Performed By: #### C MP, URIC #### [facility] [address] [address] ALT [Catalytic activity/Vol] 25 U/L Normal 7-[address] [facility] Comment on above: Performed By: #### C MP, URIC #### [facility] [address] [place] [phone] Anion gap [Moles/Vol] 10 mmol/L Normal 9-18 [facility] Comment on above: Performed By: #### C MP, URIC #### [facility] [address] [phone] AST [Catalytic activity/Vol] 22 U/L Normal 13-[address] [facility] Comment on above: Performed By: #### C MP, URIC #### [facility] [address] [address] Bilirubin [Mass/Vol] 0.4 mg/dL Normal 0.2-1.3 [facility] Comment on above: Performed By: #### C MP, URIC #### [facility] [address] [address] Calcium [Mass/Vol] 9.6 mg/dL Normal 8.5-10.2 [facility] Comment on above: Performed By: #### C MP, URIC #### [facility] [address] [address] Chloride [Moles/Vol] 100 mmol/L Normal 97-105 [facility] Comment on above: Performed By: #### C MP, URIC #### [facility] [address] [address] CO2 [Moles/Vol] 26 mmol/L Normal 22-[address] [facility] Comment on above: Performed By: #### C MP, URIC #### [facility] [employer] [address] [address] Creatinine [Mass/Vol] 0.68 mg/dL Normal 0.58-0.96 [facility] Comment on above: Performed By: #### C MP, URIC #### [facility] [address] [address] eGFR- Amer. >60 Normal [facility] Comment on above: Performed By: #### C MP, URIC #### [facility] [address] [address] eGFR-All Other Races >60 Normal [facility] Comment on above: Result Comment: eGFR (Estimated [...] Performed By: #### C MP, URIC #### [facility] [address] [phone] Glucose [Mass/Vol] 133 mg/dL High 74-99 [facility] Comment on above: Result Comment: The [place] Diabetes Association (ADA) provides guidance for cutoff [...] Standards of Medical Care in Diabetes 2016, [place] Diabetes Association. Diabetes Care. 2016.39(Suppl 1). Performed By: #### C MP, URIC #### [facility] [address] [phone] Potassium [Moles/Vol] 3.9 mmol/L Normal 3.7-5.1 [facility] Comment on above: Performed By: #### C MP, URIC #### [place] [address] [place] [address] Protein [Mass/Vol] 7.7 g/dL Normal 6.3-8.0 [facility] Comment on above: Performed By: #### C MP, URIC #### [place] [address] Sodium [Moles/Vol] 136 mmol/L Normal 136-144 [facility] Comment on above: Performed By: #### C MP, URIC #### [place] [address] Urea nitrogen [Mass/Vol] 12 mg/dL Normal 7-[address] [facility] Comment on above: Performed By: #### C MP, URIC #### [place] [address] Uric Acidon 06-15-2020 Urate [Mass/Vol] 5.3 mg/dL Normal 2.5-6.6 [facility] Comment on above: Performed By: #### C MP, URIC #### [place] [address] CNPNon 06-03-2020 SHANELLN Telephone (ENDOMN) TETE STEWARD ([id number]) 1970 F Date Time Provider Department 06/03/20 [...] [E66.9] Order(s):COMP METABOLIC PANEL [SQCMP] Order #: [id number] FUTURE URIC ACID BLOOD [SQURIC] Order #: [id number] FUTURE COMP METABOLIC PANEL [SQCMP] Order #: [id number] FUTURE URIC ACID BLOOD [SQURIC] Order #: [id number] FUTURE potassium chloride (K-TAB) 10 mEq tabletTake [...] Status:Closed by STUART BAIRES on 06/03/[address] [facility] CNOVon 05-27-2020 CNOV Office Visit (ENDOMN ) TETE STEWARD ([id number]) 1970 F Date Time Provider Department 05/27/20 8:00 AM STUART BAIRES ENDOMN During your visit today, we recorded the following information about you: Pulse Blood pressure Weight 89/minute 125/94 94.4 kg Edilson Mcuhgh Ma 05/27/2020 7:46 AM Addendum Thank you for choosing the [facility] Department of Endocrinology, Diabetes and Metabolism. WEIGHT MANAGEMENT PROGRAM Thank you for seeing me in Clinic Today. -- please start phentermine 1/2 tablet per day for two weeks then go to the full tablet Please schedule your follow-up appointment: -- Call Center: [phone] or [phone] Please call this number to make your follow up appointment. -- Dietitian: [phone] Please call this number to make your appointment. You can be seen at [address], [place] or [facility] -- Sales Representative Door To Door Our team will contact you via magnetU with the next steps -- research coordinator number: [phone]/ To Cancel an appointment, please choose one of the following: - Call the Appointment Call Center at [phone] or [phone] - From magnetU, Go to Appointments ? Cancel Appts FOR THE WEIGHT MANAGEMENT TEAM - instructions Use call center number to schedule follow up appointment for weight management when seeing patient virtually Instruct the patient to go to front end web developer to schedule follow up appointment Alternatively send a message to [email or web address] to contact the patient and schedule appointment: P ENDO APPT CONCHIS ([id number]) Shared Medical Appointment: send a message directly to Radha or Alycia to schedule SMA Thank you for choosing the [facility] Department of Endocrinology, Diabetes and Metabolism. Did you know that you need to call 48 hours in advance of your scheduled visit, if you are unable to make your appointment? The Endocrinology and Metabolism [place] thanks you for your commitment, because patients not showing to their appointment results in a lost opportunity for patients to receive world class health care at the [facility]. To Cancel an appointment, please choose one of the following: - Call the Appointment Call Center at [phone] - From magnetU, Go to Appointments ? Cancel Appts If cancelling, consider your need to reschedule to prevent further delays in your care. To Schedule an appointment, please choose one of the following: - Call the Appointment Call Center at [phone] - From magnetU, Go to Appointments ? Request an Appt Stuart Baires MD 05/27/2020 8:52 AM Signed IRB #: [id number] Screening Visit Title of study: The use of a virtual weight management program for prescription of phentermine in patients with overweight or obesity compared to standard face-to face visits. Skin Care Specialist: Stuart Baires MD Research Dry Mixer: Reji Pantoja Office: [phone] or [facility] Informed Consent Form, Version 1, Version Date [...] No Urin (more content not included)... Normal [facility] 05-12-2020 [facility] Telephone (ENDOMN) TETE STEWARD ([id number]) 1970 F Date Time Provider Department 05/12/20 REJI DEMARCO ([facility]) ENDOMN During your visit today, we recorded the following information about you: Reji Demarco 05/12/2020 11:03 AM Signed IRB #: [id number] Title of study: The use of virtual weight management program for prescription of phentermine in patients with overweight or obesity compared to standard jmkv-zg-imow visits. Skin Care Specialist: Stuart Baires MD Research Dry Mixer: Reji Demarco Office: [phone] Patient had previously reached out via email from [employer] expressing interest in the study. Called mobile and discussed informed consent form and any concerns. Scheduled appointment for site of interest--[facility]. Allergies As of Date: 05/12/2020 (No [...] Status:Closed by REJI DEMARCO on 05/12/[address] [facility] Vital Signs Date Time Vital Sign Value Performing Clinician Luanne murphy 10-10-2024 08:49-0400 Body height 165.[address] Sadaf Neal MD Work Phone: [facility] 10-10-2024 08:49-0400 Body mass index (BMI) [Ratio] 26.8 kg/m2 Dr. Sadaf Neal MD Work Phone: [facility] 10-10-2024 08:49-0400 Body weight 73.[address] Sadaf Neal MD Work Phone: [facility] 10-10-2024 08:49-0400 Diastolic blood pressure 80 mm[Hg] Dr. Sadaf Neal MD Work Phone: [facility] 10-10-2024 08:49-0400 Heart rate 80 /min Dr. Sadaf Neal MD Work Phone: [facility] 10-10-2024 08:49-0400 Respiratory rate 18 /min Dr. Sadaf Neal MD Work Phone: [facility] 10-10-2024 08:49-0400 SaO2% (BldA) [Mass fraction] 99 % Dr. Sadaf Neal MD Work Phone: [facility] 10-10-2024 08:49-0400 Systolic blood pressure 114 mm[Hg] Dr. Sadaf Neal MD Work Phone: [facility] 09-23-2024 10:56-0400 Body height 162.[address] Sadaf Neal MD Work Phone: [facility] 09-23-2024 10:51-0400 Body mass index (BMI) [Ratio] 28 kg/m2 Dr. Sadaf Neal MD Work Phone: [facility] 09-23-2024 10:51-0400 Body weight 74.[address] Sadaf Neal MD Work Phone: [facility] 09-23-2024 10:51-0400 Diastolic blood pressure 80 mm[Hg] Dr. Sadaf Neal MD Work Phone: [facility] 09-23-2024 10:51-0400 Systolic blood pressure 116 mm[Hg] Dr. Sadaf Neal MD Work Phone: [facility] 09-23-2024 07:59-0400 Body height 162.[address] Sadaf Neal MD Work Phone: [facility] 09-23-2024 07:59-0400 Body mass index (BMI) [Ratio] 27.9 kg/m2 Dr. Sadaf Neal MD Work Phone: [facility] 09-23-2024 07:59-0400 Body temperature 97.4 [degF] Dr. Sadaf Neal MD Work Phone: [facility] 09-23-2024 07:59-0400 Body weight 73.[address] Sadaf Neal MD Work Phone: [facility] 09-23-2024 07:59-0400 Diastolic blood pressure 74 mm[Hg] Dr. Sadaf Neal MD Work Phone: [facility] 09-23-2024 07:59-0400 Heart rate 79 /min Dr. Sadaf Neal MD Work Phone: [facility] 09-23-2024 07:59-0400 Respiratory rate 14 /min Dr. Sadaf Neal MD Work Phone: [facility] 09-23-2024 07:59-0400 SaO2% (BldA) [Mass fraction] 97 % Dr. Sadaf Neal MD Work Phone: [facility] 09-23-2024 07:59-0400 Systolic blood pressure 118 mm[Hg] Dr. Sadaf Neal MD Work Phone: [facility] 01-10-2023 08:04-0400 Body height 162.[address] Sadaf Neal Work Phone: [facility] 01-10-2023 08:03-0400 Body mass index (BMI) [Ratio] 26.6 kg/m2 Dr. Sadaf Neal Work Phone: [facility] 01-10-2023 08:03-0400 Body weight 70.[address] Sadaf Neal Work Phone: [facility] 01-10-2023 08:03-0400 Diastolic blood pressure 79 mm[Hg] Dr. Sadaf Neal Work Phone: [facility] 01-10-2023 08:03-0400 Systolic blood pressure 110 mm[Hg] Dr. aSdaf Neal Work Phone: [facility] 05-23-2022 13:39-0500 Body height 162.[address] Aroldo Hua Work Phone: [facility] 05-23-2022 13:39-0500 Body mass index (BMI) [Ratio] 34.8 kg/m2 Dr. Aroldo Hua Work Phone: [facility] 05-23-2022 13:39-0500 Body temperature 97.7 [degF] Dr. Aroldo Hua Work Phone: [facility] 05-23-2022 13:39-0500 Body weight 92.[address] Aroldo Hua Work Phone: [facility] 05-23-2022 13:39-0500 Diastolic blood pressure 92 mm[Hg] Dr. Aroldo Hua Work Phone: [facility] 05-23-2022 13:39-0500 Heart rate 87 /min Dr. Aroldo Hua Work Phone: [facility] 05-23-2022 13:39-0500 Respiratory rate 16 /min Dr. Aroldo Hua Work Phone: [facility] 05-23-2022 13:39-0500 SaO2% (BldA) [Mass fraction] 98 % Dr. Aroldo Hua Work Phone: [facility] 05-23-2022 13:39-0500 Systolic blood pressure 136 mm[Hg] Dr. Aroldo Hua Work Phone: [facility] Encounters Encounter Date Encounter Type Care Provider Facility Start: 11-07-2024 End: 11-07-[address] Sadaf Neal MD Work Phone: -Outpatient [facility] Start: 11-07-2024 End: 11-07-2024 Patient encounter procedure Jennifer CORCORAN -Outpatient Breast Imaging Work Phone: Start: 11-07-2024 End: 11-07-2024 ambulatory Sadaf Neal Facility:[facility] Start: 10-10-2024 End: 10-10-[address] Cong Goyal MD -[facility] Work Phone: Start: 10-10-2024 End: 10-10-[address] Sadaf Neal MD Work Phone: -[facility] Start: 09-26-2024 End: 09-26-[address] Sadaf Neal MD Work Phone: -Ultrasound [facility] Start: 09-26-2024 End: 09-26-2024 Patient encounter procedure Gabriela Davis PEDIATRIC NEUROLOGIST-C -Ultrasound [facility] Work Phone: Start: 09-26-2024 End: 09-26-2024 ambulatory Gabriela Ryan PEDIATRIC NEUROLOGIST Facility:[facility] Start: 09-23-2024 End: 09-23-[address] Sadaf Neal MD Work Phone: -Laboratory Specimen Start: 09-23-2024 End: 09-23-2024 Patient encounter procedure Gabriela Davis PEDIATRIC NEUROLOGIST-C -Laboratory Specimen Work Phone: Start: 09-23-2024 End: 09-23-2024 Patient encounter procedure Gabriela Davis PEDIATRIC NEUROLOGIST-C -[facility] Work Phone: Start: 09-23-2024 End: 09-23-[address] Sadaf Neal MD Work Phone: -[facility] Start: 09-23-2024 End: 09-23-[address] Sadaf Neal MD -[facility] Work Phone: Start: 09-23-2024 End: 09-23-[address] Sadaf Neal MD Work Phone: -[facility] Start: 09-23-2024 End: 09-23-2024 ambulatory Gabriela Ryan PEDIATRIC NEUROLOGIST Facility:[facility] Start: 08-19-2024 ambulatory Gabriela Davis PEDIATRIC NEUROLOGIST Facil ity:[facility] Start: 08-19-2024 Encounter for gynecological examination (general) (routine) without abnormal findings Jennifer Lopez [facility] Start: 02-21-2024 End: 02-22-2024 ambulatory Sadaf Neal Facility:[facility] Start: 02-21-2024 End: 02-21-2024 ambulatory Sadaf Neal Facility:[facility] Start: 01-29-2024 End: 01-29-2024 ambulatory Sadaf Neal Facility:[facility] Start: 01-29-2024 End: 01-29-2024 ambulatory Sadaf Neal Facility:[facility] Start: 01-12-2023 End: 01-12-[address] Sadaf Neal Work Phone: [facility] Work Phone: Start: 01-12-2023 End: 01-12-[address] Sadaf Neal Work Phone: [facility] Work Phone: Start: 01-10-2023 End: 01-10-[address] Sadaf Neal Work Phone: [facility] Work Phone: Start: 01-10-2023 End: 01-10-[address] Sadaf Neal Work Phone: [facility]-Laboratory, Specimen Work Phone: Start: 01-10-2023 End: 01-10-[address] Sadaf Neal Work Phone: [facility] Work Phone: Start: 06-02-2022 End: 06-02-[address] Aroldo Hua Work Phone: [facility] Work Phone: Start: 06-02-2022 End: 06-02-[address] Aroldo Hua Work Phone: [facility]-Outpatient Breast Imaging Start: 05-26-2022 End: 05-26-[address] Aroldo Hua Work Phone: [facility] Work Phone: Start: 05-26-2022 End: 05-26-[address] Aroldo Hua Work Phone: [facility]-Laboratory, [facility] Start: 05-23-2022 End: 05-23-[address] Aroldo Hua Work Phone: [facility] Internal Medicine Procedures Date Procedure Procedure Detail Performing Clinician Start: 11-07-2024 Screening mammography Paige Neal MD Work Phone: Start: 09-26-[address] Sadaf Neal MD Work Phone: Start: 01-12-[address] Sadaf Neal Work Phone: Start: 06-02-2022 Screening mammography Paige Hua Work Phone: Plan of Treatment Date Care Activity Detail Author Start: 01-10-2023 Liquid based cervica l cytology screening [facility] MG Breast - bilateral Screening [facility] Path report.final Dx Spec [facility] Payers Date Payer Category Payer Self-pay [id number] 2023 Private Health Insurance [id number] Unknown [id number] 2.16.8 [id number] Unknown [id number] 2.16.8 [id number] Unknown [id number] 2.16.8 [id number] Unknown [id number] 2.16.8 [id number] Unknown [id number] 2.16.8 [id number] Unknown [id number] 2.16.8 [id number] Unknown [id number] 2.16.8 [id number] Unknown [id number] 2.16.8 [id number] Unknown [id number] 2.16.8 [id number] Unknown [id number] 2.16.8 [id number] Unknown [id number] 2.16.8 [id number] Unknown [id number] 2.16.8 [id number] Social History Date Type Detail Facility Start: 05-23-2022 End: 01-10-2023 Tobacco smoking status DEIS Unknown if ever smoked [facility] Start: 1970 Sex Assigned At Female [facility] Start: 03-26-2023 Tobacco smoking stat us DEIS Never smoked tobacco (finding) [facility] Clinical Notes 05-27-2020 to 10-10-2024 Note Date & Type Note Facility 10-10-2024 Progress note [facility] 10-10-2024 Progress note Note Date/Time October 10, 2024 9:23am [facility] [address], [address] [place] [address] OFFICE VISIT Date of Service: 10/10/24 MR#: [id number] Acct: [id number] Name: TETE STEWARD Rep #: [id number] : 1970 Provider: Dr. Jong Goyal MD Age/Sex: 53/F Location: [facility] Status: Signed Intake Vital Signs 02/21/24 [...] mL 09/23/24 10/10/24 Rx subcutaneous pen inject[facility] Medical History Essential hypertension Bowel wall thickening [...] home: Yes additional social history: - Deni [facility] PANNICULECTOMY CONSULT Details: The patient is a [...] in March 2024 and went back on [facility] losing approximately 50 pounds in 3 months. Her BMI is currently 26 and she would like to stay around the same weight. No personal or family history of bleeding or clotting problems. Patient has had a right upper quadrant cyst removed by anchor tack puller. She reports rashes and pain with exercising [...] for insurance prior authorization are as follows: [id number] 10/10/24 0923 <Electronically signed by Cong Goyal MD> Date _ Cong Goyal MD Cosigner Signature: Date (if applicable) CC: ~ [facility] Work Phone: 1(885) 426-870207-11-2025 Radiology Diagnostic study note [facility] Imaging Services [address] [place] [address] Transvaginal Non- MR#: [id number] Acct: [id number] Name: TETE STEWARD Rep #: [id number] : 1970 F 53 From: Fanny Adames MD PCP: Dr. Sadaf Neal MD Status: REG CLI Study:Transvaginal Non- Date of Exam: 09/26/24 Exam# [id number] Ordering Dr: Gabriela Davis PEDIATRIC NEUROLOGIST PEDIATRIC NEUROLOGIST-C PROCEDURE: TRANSVAGINAL NON- 09/26/2024 REASON FOR EXAM: [...] similar to ultrasound in 2022. Reading Location: [id number] CC: NILO Davis; Dr. Sadaf Neal MD ~ Laboratory Assistant: Signed [facility]07-08-2025 Evaluation note* Diagnosis Onset Date Resolution Status Admit Date Controlled type 2 diabetes mellitus acute September 23, 2024 7 :43am Overweight (BMI 25.0-29.9) noneactiv e September 23, 2024 7:43am [facility] Work Phone: 1(151) 592-981007-08-2025 Evaluation note* Diagnosis Onset Date Resolution Status Admit Date Controlled type 2 diabetes mellitus acute September 23, 2024 7 :43am Overweight (BMI 25.0-29.9) noneactiv e September 23, 2024 7:43am Abnormal uterine bleeding acute September 23, 2024 10:48am [facility] Work Phone: 1(181) 667-710907-08-2025 Evaluation note* Diagnosis Onset Date Resolution Status Admit Date Controlled type 2 diabetes mellitus acute September 23, 2024 7 :43am Overweight (BMI 25.0-29.9) noneactiv e September 23, 2024 7:43am Abnormal uterine bleeding acute September 23, 2024 10:48am Panniculitis acute October 10, 2 025 8:27am Weight loss, intentional acute October 10, 2024 8:27am [facility] Work Phone: 1(807) 381-997810-25-2023 NotePap Smear QC ReviewOct2022 4:48pmComment.Codi Patel, Supervisory Turbinated Bone Grinder (ASCP)[facility] INTERFACED A#[id number] HospitalComment on above:Codi Patel, Supervisory Turbinated Bone Grinder (ASCP)06-29-2020 NoteHNO ID: [id number] Author: Savanah Ta RD Service: ? Author Type: Registered Dietitian Type: Progress Notes Filed: 06/29/2020 12:16 PM Note Text: [facility] Nutritional Assessment Patient states reason for [...] shared medical record. Signed by: Savanah Ta [facility]21 NoteHNO ID: [id number] Author: Stuart Baires Service: ? Author Type: Physician Type: Progress Notes Filed: 06/18/2020 9:26 AM Note Text: [facility] RETURN VISIT IRB #: [id number]: Follow-up Visit 1 (second visit) Title of study: The use of virtual weight management program for prescription of phentermine in patients with overweight or obesity compared to standard xbaa-rz-pjrp visits. Skin Care Specialist: Stuart Baires MD Research Dry Mixer: Reji Demarco AND Nneka Pantoja MD Office: [phone] OR [phone] Patient Randomized to: Usual care / Virtual Care Did patient attend dietitian appointment? Yes If yes, which diet are they on:diet choice weight mgmt: Ketogenic Did patient attend visor installer appointment? {Y/N:63 Any changes to current regimen: [...] Coronary Artery Disease Father passed from an MS - Hypertension Brother - Diabetes Father - [...] comes today for w (more content not included)...[facility]03-16-2021 NoteHNO ID: [id number] Author: Savanah Ta RD Service: ? Author Type: Registered Dietitian Type: Progress Notes Filed: 06/01/2020 5:28 PM Note Text: [facility] Nutritional Assessment Patient states reason for visit: Weight Management Initial virtual DEMOGRAPHICS: NUTRITION THERAPY Co-Morbidities: PAST MEDICAL HISTORY Diagnosis Date - Excessive or frequent menstruation - PMH - PAST MEDICAL HISTORY OF pre diabetic Previous Weight Loss Attempts:PSMF at [facility] Activity: Do you do a regular exercise No Symptoms: Patient's symptoms are as follows: Weight Concerns: failure to lose weight How many hours of sleep on average? 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03-11-2021 NoteHNO ID: [id number] Author: Stuart Baires Service: ? Author Type: Physician Type: Progress Notes Filed: 05/27/2020 8:52 AM Note Text: IRB #: [id number] Screening Visit Title of study: The use of a virtual weight management program for prescription of phentermine in patients with overweight or obesity compared to standard face-to face visits. 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 (more content not included)...[facility] Diagnosis Onset Date Resolution Status Essential hypertension acute Uncontrolled type II diabetes mellitus acute Immunization declined noneac tive Establishing care with new doctor, encounter for noneactive Right foot pain noneactive Screening for breast cancer noneactive GERD (gastroesophageal reflux disease) noneactive [facility] Work Phone: Evaluation note* Diagnosis Onset Date Resolution Status Abnormal uterine bleeding ac [place] Encounter for routine gynecological examination noneactive [facility] Work Phone: Evaluation note* Diagnosis Onset Date Resolution Status Admit Date Controlled type 2 diabetes mellitus acute September 23, 2024 7 :43am Obesity (BMI 30.0-34.9) noneactive J diego2024 7:43am [facility] Work Phone: Reason for referral (narrative)No reason for referral information availableCent[facility] Work Phone: Summary Purpose Family History No [...] May 09, 2 023 3:20pm Power of Employment Officer No May 09, 2022 3:20pm Chief Complaint and Reason for Visit Chief Complaint cycle liaison est care Reason for Visit Essential hypertensi on Uncontrolled type II diabetes mellitus Immunization declined Establishing care with new doctor, encounter for Right foot pain Screening for breast cancer GERD (gastroesophageal reflux disease) Chief Complaint cycle liaison est care SCREENING Reason for Visit Essential hypertensi on Uncontrolled type II diabetes mellitus Immunization declined Establishing care with new doctor, encounter for Right foot pain Screening for breast cancer GERD (gastroesophageal reflux disease) Chief Complaint 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 DATE CREATED AUTHOR AUTHOR'S ORGANIZ ATION [facility] (unrecognized sec tion and content) [...] Provider, Referri ng Provider Active Rhina Rucker , CNM Attending Provider Active Team Status: Active [...] 2024 End: September 23, 2024 Gabriela Davis PEDIATRIC NEUROLOGIST, PEDIATRIC NEUROLOGIST-C Attending Provider Active Start: September 23, 2024 End: September 23, 2024 Team Status: Active Member Role/Relationship Status Dates Dr. Sadaf Neal MD Primary Care Provider Active Team Status: Inactive Member Role/Relationship Status Dates Dr. Sadaf Neal MD Primary Care Provider Active Start: September 23, 2024 End: September 23, 2024 Gabriela Davis PEDIATRIC NEUROLOGIST, PEDIATRIC NEUROLOGIST-C Attending Provider Active Start: September 23, 2024 End: September 23, 2024 Team Status: Active Member Role/Relationship Status Dates Dr. Sadaf Neal MD Primary Care Provider Active Start: September 26, 2024 Gabriela Davis PEDIATRIC NEUROLOGIST, PEDIATRIC NEUROLOGIST-C Attending Provider Active Start: September 26, 2024 Gabriela Davis PEDIATRIC NEUROLOGIST, PEDIATRIC NEUROLOGIST-C Referring Provider Active Start: September 26, 2024 Team Status: Inactive Member Role/Relationship Status Dates Dr. Sadaf Neal MD Primary Care Provider Active Start: September 26, 2024 End: September 26, 2024 NILO Esteban NP Attending Provider Active Start: September 26, 2024 End: September 26, 2024 NILO Esteban NP Referring Provider Active Start: September 26, 2024 [...] October 10, 2024 End: October 10, 2024 Team Status: Inactive Member Role/Relationship Status Dates Dr. Sadaf Neal MD Primary Care Provider Active Start: November 07, 2024 End: November 07, 2024 NILO Worthy Attending Provider Active Start: November 07, 2024 End: November 07, 2024 NILO Worthy Referring Provider Active Start: November 07, 2024 End: November 07, 2024 Goals (unrecognized section and content) Goals [...] BE BASED ON THE PRIMARY CLINICAL RECORDS. [facility]. provides no warranty or guarantee of the accuracy or completeness of information in this document.
[2025-02-16 10:33] LABS: Hematocrit 39.6 % (37-47); Hemoglobin 14.0 g/dL (12.0-15.0); Immature Granulocytes Count 0.030 X10^3/uL (0.0-0.0); Mean Corp Hgb Conc 35.4 g/dL (32-36); Mean Corpuscular Volume 85.9 fL (81-99); Mean Platelet Vol. 10.0 fl (6.2-12.0); NRBC Flagged by Analyzer 0 % (0-5); Platelet Count 282 K/mm3 (150-450); RBC Distribution Width CV 12.6 % (11.6-14.6); RBC Distribution Width SD 39.1 fl (35.1-43.9); Red Blood Count 4.61 M/mm3 (4.2-5.4); White Blood Count 6.7 K/mm3 (4.4-11.0)
[2025-02-16 11:02] LABS: AST(SGOT) 24 U/L (<=31); Alanine Aminotransfer ALT/SGPT 17 U/L (<=34); Albumin, Serum 4.3 g/dL (3.5-5.0); Alkaline Phosphatase 81 U/L (35-104); Anion Gap 9 (5-15); BUN 13 mg/dL (4-19); BUN/Creat Ratio 19.1 RATIO (10-20); Calcium,Total 9.6 mg/dL (7.6-11.0); Carbon Dioxide 26.5 mmol/L (21.0-32.0); Chloride 102 mmol/L (98-108); Cholesterol 189 mg/dL (<=200); Globulin 3.4 g/dL (2.2-4.2); Glucose 95 mg/dL (70-99); Low Density Lipoprotein Calc. 109 mg/dL; Potassium 4.4 mmol/L (3.3-5.1); Triglycerides 121 mg/dL; Very Low Density Lipoprotein 24 mg/dL (5-40); cholesterol:hdl ratio screen 3.21
[2025-02-16 14:17] LABS: Creatinine, Urine (random) 107.00 mg/dL (28.00-217.00); Microalbumin,Random Urine 26.4 mg/L (<20 mg/L)
[2025-02-17 18:02] LABS: Vitamin B12 506 pg/mL (180-914); Vitamin D,25 Hydroxy 28.8 ng/mL (30-100)
[2025-02-17 18:23] LABS: Iron 170 ug/dL (50-170); Iron Binding Capacity,Total 338 ug/dL (250-450); Iron Binding Capacity,Unsat 168 ug/dL (228-428)
== END | disposition home or self-care (01) ==
PROVIDERS: PCP Internal Medicine; Referring Provider Internal Medicine; Visit Provider Internal Medicine
DX: E11.9 Type 2 diabetes mellitus without complications (principal)
CPT/HCPCS: 36415; 80053; 80061; 82043; 82306; 82570; 82607; 83036; 83540; 83550; 85025